=== PATIENT | female | born 1955 | race Caucasian/White ===

== ENCOUNTER → 2016-08-01 | Outpatient (CLI) | payer BC ==
--- NOTE | 2016-08-02 07:14 | MM ---
Reason for exam: history of breast cancer, conservation therapy. Last mammogram was performed 10 months ago. History: Patient is postmenopausal and has history of breast cancer at age 60. Family history of breast cancer in paternal aunt and breast cancer in paternal grandmother at age 80. Malignant MG pre op needle loc LT of the left breast, November 23, 2015. Malignant MG stereo VAD BX LT of the left breast, November 01, 2015. Benign excisional biopsy of the right breast, 1997. Physical Findings: Nurse did not find any significant physical abnormalities on exam. MG Diagnostic Mammo LT w CAD CC and MLO view(s) were taken of the left breast. Prior study comparison: October 13, 2015, left breast MG 3d work up w/cad LT. October 07, 2015, bilateral MG screening mammo w CAD. Post operative lumpectomy and radiation therapy changes in the left breast. Dystrophic calcifications. No significant new findings when compared with previous films. These results were verbally communicated with the patient and result sheet given to the patient on 08/01/16. ASSESSMENT: Benign, BI-RAD 2 RECOMMENDATION: Follow-up diagnostic mammogram of both breasts in 3 months. Back on schedule for September 2016.
== END | disposition home or self-care (01) ==
LOC: RADMAMWWP 14:45
PROVIDERS: ATTEND Radiology Radiation Oncology
DX: D05.12 Intraductal carcinoma in situ of left breast (principal)

== ENCOUNTER → 2016-10-09 | Outpatient (CLI) | payer BC ==
--- NOTE | 2016-10-09 14:30 | MM ---
Reason for exam: follow-up at short interval from prior study. Last mammogram was performed 2 months ago. History: Patient is postmenopausal and has history of breast cancer at age 60. Family history of breast cancer in paternal aunt and breast cancer in paternal grandmother at age 80. Malignant MG pre op needle loc LT of the left breast, November 23, 2015. Malignant MG stereo VAD BX LT of the left breast, November 01, 2015. Benign excisional biopsy of the right breast, 1997. Physical Findings: Nurse did not find any significant physical abnormalities on exam. MG 3D Diag Mammo W/Cad EDDIE Bilateral CC and MLO view(s) were taken. Prior study comparison: August 01, 2016, left breast MG diagnostic mammo LT w CAD. October 13, 2015, left breast MG 3d work up w/cad LT. The breast tissue is heterogeneously dense. This may lower the sensitivity of mammography. Finding: Architectural distortion in the left breast consistent with previous biopsy. There are post surgical changes bilaterally. No significant changes in finding since August 01, 2016 and October 13, 2015. These results were verbally communicated with the patient and result sheet given to the patient on 10/09/16. ASSESSMENT: Benign, BI-RAD 2 RECOMMENDATION: Follow-up diagnostic mammogram of both breasts in 1 year.
== END | disposition home or self-care (01) ==
LOC: RADMAMWWP 13:25
PROVIDERS: ATTEND Surgery
DX: Z85.3 Personal history of malignant neoplasm of breast (principal)
CPT/HCPCS: G0204; G0279

== ENCOUNTER → 2017-03-22 | Outpatient (CLI) | payer BC ==
--- NOTE | 2017-03-22 16:56 | US ---
EXAMINATION TYPE: US venous doppler duplex LE RT DATE OF EXAM: 03/22/2017 4:46 PM COMPARISON: Bilateral lower extremity venous ultrasound November 03, 2014. CLINICAL HISTORY: M79.661 Pain in right lower leg. Elevated DDimer, patient states discomfort behind right knee. No hx of DVT or on blood thinners SIDE PERFORMED: Right TECHNIQUE: The lower extremity deep venous system is examined utilizing real time linear array sonog ashlee with graded compression, doppler sonography and color-flow sonography. VESSELS IMAGED: External Iliac Vein (EIV) Common Femoral Vein Deep Femoral Vein Greater Saphenous Vein * Femoral Vein Popliteal Vein Small Saphenous Vein * Proximal Calf Veins (* superficial vessels) Right Leg: Appears negative for DVT Grayscale, color doppler, spectral doppler imaging performed of the deep veins of the right lower ext remity. There is normal flow, compressibility, vascular waveforms. IMPRESSION: No acute DVT in the right lower extremity identified.
== END | disposition home or self-care (01) ==
LOC: RADUSMAIN 16:20
PROVIDERS: ATTEND Nurse Practitioner
DX: M79.661 Pain in right lower leg (principal); R79.89 Other specified abnormal findings of blood chemistry; Z88.8 Allergy status to other drugs, medicaments and biological substances

== ENCOUNTER → 2017-06-13 | Outpatient (CLI) | payer BC ==
--- NOTE | 2017-06-13 07:31 | US ---
EXAMINATION TYPE: US abdomen complete DATE OF EXAM: 06/13/2017 COMPARISON: CTA Chest November 02, 2014 CLINICAL HISTORY: LUQ Abd Pain R10.12. Pt states LUQ pain EXAM MEASUREMENTS: Liver Length: 14.3 cm Gallbladder Wall: Surgically absent CBD: 0.9 cm Spleen: 10.1 cm Right Kidney: 10.0 x 4.9 x 5.1 cm Left Kidney: 11.0 x 5.4 x 5.3 cm Pancreas: wnl, tail obscured by overlying bowel gas Liver: Heterogeneous, otherwise appeared wnl Gallbladder: Surgically absent Evidence for sonographic Levine's sign: No CBD: wnl Spleen: wnl Right Kidney: wnl Left Kidney: wnl Upper IVC: wnl Abd Aorta: wnl, part of mid and distal gassed out The visualized liver is heterogeneously hyperechoic. The intrahepatic portion of the IVC and visuali zed portion of abdominal aorta are within normal limits. Gallbladder is surgically absent. Common bi le duct is within normal limits after cholecystectomy. The visualized portions of the pancreas are h omogenous. The spleen is unremarkable. Kidneys are symmetric and free of hydronephrosis. No renal lesions are seen. IMPRESSION: No suspicious finding is seen to account for patient's symptoms.
== END | disposition home or self-care (01) ==
LOC: RADUSWWP 06:42
PROVIDERS: ATTEND Family Medicine
DX: Z88.8 Allergy status to other drugs, medicaments and biological substances (principal)
CPT/HCPCS: 76700

== ENCOUNTER → 2017-10-18 | Outpatient (CLI) | payer BC ==
--- NOTE | 2017-10-19 09:21 | MM ---
Reason for exam: additional evaluation requested from prior study. Last mammogram was performed 1 year ago. History: Patient is postmenopausal and has history of breast cancer at age 60. Family history of breast cancer in paternal aunt and breast cancer in paternal grandmother at age 80. Malignant MG pre op needle loc LT of the left breast, November 23, 2015. Malignant MG stereo VAD BX LT of the left breast, November 01, 2015. Benign excisional biopsy of the right breast, 1997. Physical Findings: Nurse did not find any significant physical abnormalities on exam. MG Diagnostic Mammo w CAD EDDIE Bilateral CC and MLO view(s) were taken. ML, CC with magnification, and ML with magnification view(s) were taken of the right breast. Prior study comparison: October 09, 2016, bilateral MG 3d diag mammo w/cad EDDIE. August 01, 2016, left breast MG diagnostic mammo LT w CAD. The breast tissue is heterogeneously dense. This may lower the sensitivity of mammography. Post surgical and post therapy changes in the left breast. New grouped calcifications lower outer quadrant anterior right breast 8 o'clock in a linear distribution not clearly vascular, biopsy is recommended. Nodular asymmetry superior right breast middle depth does not persist on lateral view. These results were verbally communicated with the patient and result sheet given to the patient on 10/18/17. ASSESSMENT: Suspicious, BI-RAD 4 RECOMMENDATION: Surgical consultation and stereotactic core biopsy of the right breast. Called with mammographic findings and has scheduled an appointment for the patient for 11/01/17 at 8:[address] Hurd. PRELIMINARY REPORT CALLED AND FAXED TO DR. HURD ON 10/19/17.
== END | disposition home or self-care (01) ==
LOC: RADMAMWWP 12:50
PROVIDERS: ATTEND Surgery
DX: Z09 Encounter for follow-up examination after completed treatment for conditions other than malignant neoplasm (principal); Z85.3 Personal history of malignant neoplasm of breast
CPT/HCPCS: 77066

== ENCOUNTER 2017-11-06 06:48 | Emergency (ER) | payer BC ==
[2017-11-06 06:53] VITALS: TEMP 98.5
[2017-11-06 07:15] LABS: Basophils # (A) 0.1 k/uL (0-0.2); Basophils % (A) 1 %; Eosinophils # (A) 0.2 k/uL (0-0.7); Eosinophils % (A) 4 %; HCT 46.5 % (34.0-46.0); HGB 15.2 gm/dL (11.4-16.0); Lymphocytes # (A) 1.4 k/uL (1.0-4.8); Lymphocytes % (A) 24 %; MCH 30.5 pg (25.0-35.0); MCHC 32.6 g/dL (31.0-37.0); MCV 93.4 fL (80.0-100.0); Mean Platelet Volume 6.5; Monocytes # (A) 0.3 k/uL (0-1.0); Monocytes % (A) 5 %; Neutrophils # (A) 3.8 k/uL (1.3-7.7); Neutrophils % (A) 65 %; Platelet Count 355 k/uL (150-450); RBC 4.98 m/uL (3.80-5.40); RDW 12.6 % (11.5-15.5); WBC 5.9 k/uL (3.8-10.6)
[2017-11-06 07:24] LABS: ALT 25 U/L (9-52); AST 18 U/L (14-36); Albumin 4.4 g/dL (3.5-5.0); Alkaline Phosphatase 74 U/L (38-126); Anion Gap 13 mmol/L; Blood Urea Nitrogen 16 mg/dL (7-17); Calcium 9.6 mg/dL (8.4-10.2); Carbon Dioxide 28 mmol/L (22-30); Chloride 101 mmol/L (98-107); Glucose 100 mg/dL (74-99); Potassium 4.1 mmol/L (3.5-5.1); Sodium 142 mmol/L (137-145); Total Bilirubin 0.5 mg/dL (0.2-1.3); Total Protein 7.3 g/dL (6.3-8.2)
[2017-11-06 07:29] LABS: Partial Thromboplastin Time 24.5 sec (22.0-30.0); Prothrombin Time 9.9 sec (9.0-12.0)
[2017-11-06 07:43] LABS: Creatine Kinase 73 U/L (30-135)
--- NOTE | 2017-11-06 07:49 | XR ---
EXAMINATION TYPE: XR chest 2V DATE OF EXAM: 11/06/2017 COMPARISON: Chest x-ray February 11, 2015. HISTORY: History of hypertension with dysrhythmia. TECHNIQUE: Frontal and lateral views of the chest are obtained. FINDINGS: There is chronic parenchymal change without suspicious new focal air space opacity, pleura l effusion, or pneumothorax seen. The cardiac silhouette size remains within normal limits. The os seous structures are intact. Right axillary surgical clips are redemonstrated. Cholecystectomy clips are again seen. IMPRESSION: Chronic changes without acute pulmonary process. No significant change from prior.
[2017-11-06 07:56] LABS: Creatine Kinase MB 0.7 ng/mL (0.0-2.4); Troponin I <0.012 ng/mL (0.000-0.034)
[2017-11-06] MEDS ORDERED: RX INFO: IV CONTRAST WAS GIVEN 1 EACH MISC MISCELLANE PRN (08:02)
--- NOTE | 2017-11-06 08:36 | ED ---
General Adult HPI - General Chief complaint: Arrhythmia/Palpitations Stated complaint: high heart rate Time Seen by Provider: 11/06/17 07:16 Source: patient, RN notes reviewed, old records reviewed Mode of arrival: wheelchair Limitations: no limitations - History of Present Illness Initial comments: This is a 62-year-old female the ER for evaluation. This patient presents today for evaluation regards to arrhythmia, elevated blood pressure, elevated pulse. Anxious. Patient admits to anxiety and stress. Patient has history of high cholesterol remote history of smoking. Stress test 5 years ago with no significant heart disease. No travel history no sick contacts no pain in her legs. She occasionally gets pain down her right leg from her right back which she has sever from sciatica. Symptoms started this morning. Blood pressure was initially elevated at Dr. visit recently - Related Data Home Medications Medication Instructions Recorded Confirmed Albuterol Sulfate [Ventolin HFA] 1 - 2 puff INHALATION RT-Q4H PRN 11/02/1411/06 Loratadine [Claritin] 10 mg PO DAILY PRN 11/02/14 11/06/17 Omeprazole [PriLOSEC] 20 mg PO DAILY PRN 11/02/14 11/06/17 Fluticasone/Salmeterol [Advair 1 puff INHALATION RT-BID 11/19/15 11/06/17 100-50 Diskus] Allergies Allergy/AdvReac Type Severity Reaction Status Date / Time latex Allergy Rash/Hives Verified 11/06/17 07:16 Penicillins Allergy Rash/Hives Verified 11/06/17 07:16 prednisone AdvReac Dyspnea Verified 11/06/17 07:16 Review of Systems ROS Statement: Those systems with pertinent positive or pertinent negative responses have been documented in the HPI. ROS Other: All systems not noted in ROS Statement are negative. Past Medical History Past Medical History: Asthma, Cancer, GERD/Reflux, Hyperlipidemia, Hypertension , Osteoarthritis (OA) Additional Past Medical History / Comment(s): HX BACK PROB, RT SCIATICA. NO HTN RX IN FEW YEARS. HX PVC'S 01/2015. LT BREAST DUCTAL CARCINOMA INSITU CURRENTLY., History of Any Multi-Drug Resistant Organisms: None Reported Past Surgical History: Breast Surgery, Cholecystectomy, Orthopedic Surgery Additional Past Surgical History / Comment(s): Fatty Tumor EXC RT AXILLA. BUNION. COLONOSCOPY. LT BREAST BX., Past Anesthesia/Blood Transfusion Reactions: No Reported Reaction Additional Past Anesthesia/Blood Transfusion Reaction / Comment(s): AFTER LT BREAST BX 11/01/15, DEVELOPED HIVES ON BREAST. Past Psychological History: Depression Smoking Status: Former smoker Past Alcohol Use History: Occasional Past Drug Use History: None Reported - Past Family History Mother Family Medical History: Cancer, Hypertension Additional Family Medical History / Comment(s): COLON CA. General Exam Limitations: no limitations General appearance: alert, in no apparent distress Head exam: Present: atraumatic, normocephalic, normal inspection Eye exam: Present: normal appearance, PERRL, EOMI. Absent: scleral icterus, conjunctival injection, periorbital swelling ENT exam: Present: normal exam, mucous membranes moist Neck exam: Present: normal inspection. Absent: tenderness, meningismus, lymphadenopathy Respiratory exam: Present: normal lung sounds bilaterally. Absent: respiratory distress, wheezes, rales, rhonchi, stridor Cardiovascular Exam: Present: regular rate, normal rhythm, normal heart sounds. Absent: systolic murmur, diastolic murmur, rubs, gallop, clicks GI/Abdominal exam: Present: soft, normal bowel sounds. Absent: distended, tenderness, guarding, rebound, rigid Extremities exam: Present: normal inspection, full ROM, normal capillary refill. Absent: tenderness, pedal edema, joint swelling, calf tenderness Back exam: Present: normal inspection Neurological exam: Present: alert, oriented X3, CN II-XII intact Psychiatric exam: Present: normal affect, normal mood Skin exam: Present: warm, dry, intact, normal color. Absent: rash Course Vital Signs 11/06/17 11/06/17 06:50 08:35 Temperature 98.5 F Pulse Rate 98 80 Respiratory 18 16 Rate Blood Pressure 157/81 140/81 O2 Sat by Pulse 99 100 Oximetry - Reevaluation(s) Reevaluation #1: 11/06/17 08:35 Patient with episodic symptoms here in the ER, nothing consistent Reevaluation #2: 11/06/17 10:01 A she remains without significant symptoms. No shortness of breath currently. Blood pressures markedly improved EKG Findings - EKG Comments: EKG Findings:: EKG shows normal sinus rhythm at 96, AR 138, QRS 90, QTC 416 Medical Decision Making - Medical Decision Making 62 female the ER with nonspecific palpitations chest pain. Patient has no significant similar history, blood pressures episodic, will follow-up with family doctor regarding blood pressure management. CT negative troponin negative 2 EKG is normal and patient can be discharged home - Lab Data Result diagrams: 11/06/17 07:00 11/06/17 07:00 Lab Results 11/06/17 11/06/17 11/06/17 Range/Units 07:00 07:00 07:00 WBC 5.9 (3.8-10.6) k/uL RBC 4.98 (3.80-5.40) m/uL Hgb 15.2 (11.4-16.0) gm/dL Hct 46.5 H (34.0-46.0) % MCV 93.4 (80.0-100.0) fL MCH 30.5 (25.0-35.0) pg MCHC 32.6 (31.0-37.0) g/dL RDW 12.6 (11.5-15.5) % Plt Count 355 (150-450) k/uL Neutrophils % 65 % Lymphocytes % 24 % Monocytes % 5 % Eosinophils % 4 % Basophils % 1 % Neutrophils # 3.8 (1.3-7.7) k/uL Lymphocytes # 1.4 (1.0-4.8) k/uL Monocytes # 0.3 (0-1.0) k/uL Eosinophils # 0.2 (0-0.7) k/uL Basophils # 0.1 (0-0.2) k/uL PT (9.0-12.0) sec INR (<1.2) APTT (22.0-30.0) sec Sodium 142 (137-145) mmol/L Potassium 4.1 (3.5-5.1) mmol/L Chloride 101 (98-107) mmol/L Carbon Dioxide 28 (22-30) mmol/L Anion Gap 13 mmol/L BUN 16 (7-17) mg/dL Creatinine 0.68 (0.52-1.04) mg/dL Est GFR (CKD-EPI)AfAm >90 (>60 ml/min/1.73 sqM) Est GFR (CKD-EPI)NonAf >90 (>60 ml/min/1.73 sqM) Glucose 100 H (74-99) mg/dL Calcium 9.6 (8.4-10.2) mg/dL Magnesium 2.0 (1.6-2.3) mg/dL Total Bilirubin 0.5 (0.2-1.3) mg/dL AST 18 (14-36) U/L ALT 25 (9-52) U/L Alkaline Phosphatase 74 (38-126) U/L Total Creatine Kinase 73 (30-135) U/L CK-MB (CK-2) 0.7 (0.0-2.4) ng/mL CK-MB (CK-2) Rel Index 1.0 Troponin I <0.012 (0.000-0.034) ng/mL Total Protein 7.3 (6.3-8.2) g/dL Albumin 4.4 (3.5-5.0) g/dL 11/06/17 Range/Units 07:00 WBC (3.8-10.6) k/uL RBC (3.80-5.40) m/uL Hgb (11.4-16.0) gm/dL Hct (34.0-46.0) % MCV (80.0-100.0) fL MCH (25.0-35.0) pg MCHC (31.0-37.0) g/dL RDW (11.5-15.5) % Plt Count (150-450) k/uL Neutrophils % % Lymphocytes % % Monocytes % % Eosinophils % % Basophils % % Neutrophils # (1.3-7.7) k/uL Lymphocytes # (1.0-4.8) k/uL Monocytes # (0-1.0) k/uL Eosinophils # (0-0.7) k/uL Basophils # (0-0.2) k/uL PT 9.9 (9.0-12.0) sec INR 1.0 (<1.2) APTT 24.5 (22.0-30.0) sec Sodium (137-145) mmol/L Potassium (3.5-5.1) mmol/L Chloride (98-107) mmol/L Carbon Dioxide (22-30) mmol/L Anion Gap mmol/L BUN (7-17) mg/dL Creatinine (0.52-1.04) mg/dL Est GFR (CKD-EPI)AfAm (>60 ml/min/1.73 sqM) Est GFR (CKD-EPI)NonAf (>60 ml/min/1.73 sqM) Glucose (74-99) mg/dL Calcium (8.4-10.2) mg/dL Magnesium (1.6-2.3) mg/dL Total Bilirubin (0.2-1.3) mg/dL AST (14-36) U/L ALT (9-52) U/L Alkaline Phosphatase (38-126) U/L Total Creatine Kinase (30-135) U/L CK-MB (CK-2) (0.0-2.4) ng/mL CK-MB (CK-2) Rel Index Troponin I (0.000-0.034) ng/mL Total Protein (6.3-8.2) g/dL Albumin (3.5-5.0) g/dL - Radiology Data Radiology results: report reviewed (Chest x-ray negative CTA chest negative), image reviewed Disposition Clinical Impression: Tachycardia, Palpitations, PVC (premature ventricular contraction) Disposition: HOME SELF-CARE Condition: Good Instructions: Palpitations (ED) Is patient prescribed a controlled substance at d/c from ED?: No Referrals: Robinson Jarrell MD [Primary Care Provider] - 1-2 days
[2017-11-06 08:37] VITALS: RESP 16
--- NOTE | 2017-11-06 09:01 | CT ---
EXAMINATION TYPE: CT angio chest DATE OF EXAM: 11/06/2017 COMPARISON: CTA chest November 02, 2014. Rapid heart rate. HISTORY: High heart rate CT DLP: 372.6 mGycm. Automated Exposure Control for Dose Reduction was Utilized. CONTRAST: CTA scan of the thorax is performed with IV Contrast, patient injected with 100 mL of Isovue 370, pul monary embolism protocol. MIP Images are created on CT scanner and reviewed. FINDINGS: LUNGS: Dependent atelectasis in both lower lobes is present. There is additional linear scarring and/ or atelectasis in the bases near diaphragm. There is mild underlying emphysematous change. There is n o suspicious parenchymal nodule or mass identified bilaterally. No pleural effusion or pneumothorax i s seen. Tracheobronchial tree is patent. MEDIASTINUM: There is slightly suboptimal study with equal contrast noted in right and left heart sys tems there is no convincing CT evidence for pulmonary embolism. There are no greater than 1 cm hilar or mediastinal lymph nodes. No cardiomegaly or pericardial effusion is seen. There is 4 vessel katelynn gin from aortic arch which is normal variant. OTHER: Cholecystectomy clips are present. There is tiny splenule in splenic hilum. Exaggerated thorac ic kyphosis is seen. IMPRESSION: 1. Slightly suboptimal study without CT evidence for acute pulmonary embolism. 2. Bilateral lower lung atelectatic change and/or scarring on background of mild emphysematous change , no suspicious acute pulmonary process is evident.
[2017-11-06 11:30] VITALS: BP 138/72; PULSE 88
== END 2017-11-06 11:51 | disposition home or self-care (01) ==
LOC: EC 06:48
DX: I49.3 Ventricular premature depolarization (principal); F41.9 Anxiety disorder, unspecified; F43.9 Reaction to severe stress, unspecified; M54.9 Dorsalgia, unspecified; M79.604 Pain in right leg; J45.909 Unspecified asthma, uncomplicated; Z87.891 Personal history of nicotine dependence; Z79.51 Long term (current) use of inhaled steroids; Z88.0 Allergy status to penicillin; Z88.8 Allergy status to other drugs, medicaments and biological substances; Z91.040 Latex allergy status; Z82.49 Family history of ischemic heart disease and other diseases of the circulatory system
CPT/HCPCS: 99285; 36415; 93005; 80053; 82550; 82553; 83735; 84484; 85025; 85610; 85730; 71046; 71275; Q9967

== ENCOUNTER → 2017-11-09 | Day surgery (SDC) | payer BC ==
[2017-11-09 07:49] VITALS: RESP 16; BMI 28.8
--- NOTE | 2017-11-09 10:25 | MM ---
EXAMINATION TYPE: MG stereo VAD BX RT DATE OF EXAM: 11/09/2017 COMPARISON: Mammogram October 18, 2017 and older studies CLINICAL HISTORY: Abnormal mammogram TECHNIQUE: Stereotactic guided core biopsy of right breast with clip placement and follow-up two-view mammogram. FINDINGS: The procedure of stereotactic guided core biopsy was explained to the patient. Benefits, a lternatives, and risks were discussed. An informed consent was then obtained. The [facility] pathway for biopsy was chosen. [facility] pathway was outer approach. I performed the l ocalization, then surgeon, Dr. Hurd performed the remainder of the procedure. Attempts at local izing area of concern marked on images appear to correspond to a prominent vessel with a few adjacent calcifications. Review of images show several areas of concern in the right breast. A second spot wa s chosen to sample. A vacuum assisted biopsy gun was used to obtain multiple core samples. The patient tolerated the procedure well without any immediate complication. The patient was kept in the radiology department for short stay after the procedure and then discharged home in stable condi tion. Targeted calcifications are identified in specimen mammogram. Post biopsy mammogram shows the clip to appear in satisfactory position relative to the targeted area of concern on the preprocedure images. IMPRESSION: SUCCESSFUL, UNCOMPLICATED STEREOTACTIC GUIDED CORE BIOPSY OF AREA OF CONCERN IN THE RIGHT BREAST, FUL L PATHOLOGY RESULTS TO FOLLOW. Intermediate to high index of suspicion noted at time of procedure.
--- NOTE | 2017-11-09 11:28 | PCN ---
PROCEDURE NOTE The patient is a 62-year-old white female who presents status post left breast lumpectomy with a recent mammogram done 10/18/2017 showing grouped calcifications of concern in the anterior right breast at 8 o'clock. The mammograms were reviewed and the findings were a new area of grouped calcifications lower outer quadrant anterior right breast 8 o'clock. Biopsy was recommended. The patient's left breast revealed postoperative changes. The patient underwent a physical examination and on physical examination no supraclavicular, cervical, axillary adenopathy of concern. Postop changes in the left breast were noted. Changes in the right breast were fibrocystic with no dominant mass or nodules of concern. The procedure was discussed with the patient. Risks and benefits were discussed with the patient and the recommendation was a stereotactic core biopsy rather than an open procedure or observation. The patient was taken to the stereotactic unit. She laid on the table and the area of concern again was noted in the right breast at approximately the 8 o'clock position. A lateral to medial approach was utilized. The skin was prepped using Betadine and 1% lidocaine was used to anesthetize the area of the skin. A 5-gauge vacuum-assisted core biopsy was driven to the correct coordinates and pre-fire and post-fire films were obtained. When this was noted to be in the correct location, multiple core biopsies were obtained. Radiograph of the specimen revealed calcifications. A marker was inserted. Radiograph revealed marker was in the correct location. The patient is going to follow up with Dr. Hurd and the specimen is sent to pathology. The patient tolerated the procedure in stable condition. MMODL / IJN: [id number] /
[2017-11-09 11:35] VITALS: BP 129/85; PULSE 71; TEMP 98.1
== END | disposition home or self-care (01) ==
LOC: RADMAMWWP 07:03
PROVIDERS: ATTEND Surgery
DX: N60.11 Diffuse cystic mastopathy of right breast (principal); N60.81 Other benign mammary dysplasias of right breast; Z88.0 Allergy status to penicillin; Z88.8 Allergy status to other drugs, medicaments and biological substances; Z91.040 Latex allergy status; Z85.3 Personal history of malignant neoplasm of breast
CPT/HCPCS: 88305; 88342; 19081; A4648; J2001

== ENCOUNTER → 2017-11-23 | Outpatient (CLI) | payer BC ==
[2017-11-23 08:46] VITALS: BP 160/93; PULSE 96; TEMP 97.7; BMI 28.8
--- NOTE | 2017-11-23 09:11 | P.PN ---
Progress Note - Text Progress Note Date: 11/23/17 Kiesha is a 62-year-old white female status post left breast lumpectomy and Reanna procedure performed. The patient recently underwent a bilateral mammogram for which a stereotactic core biopsy was recommended on the right side. Stereotactic biopsy results revealed at least atypical apocrine ductal hyperplasia with microcalcifications the concern about ductal carcinoma in situ was entertained. The recommendation was for needle localization and excisional biopsy. family history: paternal aunt : breast cancer grandmother: breast cancer (paternal) maternal: two cousins late 40's breast cancer PE: The area of the biopsy is clean and dry with no evidence of any infection Lungs clear Heart: Heart regular rate and rhythm Abdomen soft nontender Impression/plan: 1. Atypical hyperplasia right breast are detected core biopsy recommend needle localization excisional biopsy 2. History of left-sided breast cancer no evidence of recurrence
--- NOTE | 2017-11-23 09:32 | P.GSHP ---
History of Present Illness H&P Date: 11/23/17 Chief Complaint: Left breast lumpectomy, right breast stereotactic biopsy atypical hyperplas This is. Is a 62-year-old white female status post left breast lumpectomy with Reanna radiation treatment. She recently underwent a stereo biopsy of the right breast for radiographic abnormality which revealed atypical hyperplasia possible DCIS. The patient at this time is doing well related to the stereo biopsy she has no complaints related to this. She does experience some tenderness in the left breast related to the prior lumpectomy and radiation treatment. Patient was taken an antiestrogen but only took it for approximately a week because she did not like the symptoms. menarche: 16 : 2, first at 26 did not breast feed BCP 1 year, hormones none family history: paternal grandmother: breast paternal aunt: breast in her 60's two cousins maternal: breast cancer in 40's mother :colon past surgical history: 1. bunion 2. lipoma 3. gallbladder 4. colonoscopy 5. breast left lumpectomy past medical history: 1. HTN 2. asthma social: 1. former stopped, 5 years ago 2. alcohol: 1-2 beers/week 3. drugs: none - Constitutional Comment: hotflashes Constitutional: Denies chills, Denies fever - Cardiovascular Cardiovascular: Denies chest pain, Denies shortness of breath - Respiratory Comment: asthma - Gastrointestinal Gastrointestinal: Denies abdominal pain, Denies diarrhea, Denies nausea, Denies vomiting - Genitourinary (Female) Comment: left flank pain, follows with primary care - Musculoskeletal Comment: arthritis - Integumentary Comment: no skin cancers - Neurological Neurological: Denies numbness, Denies weakness - Psychiatric Psychiatric: Denies anxiety, Denies depression - Endocrine Endocrine: Denies fatigue, Denies weight change - Hematologic/Lymphatic Comment: no bleeding abnormalitits - Allergic/Immunologic Allergic/Immunologic: Reports seasonal allergies Past Medical History Past Medical History: Asthma, Cancer, GERD/Reflux, Hyperlipidemia, Hypertension , Osteoarthritis (OA) Additional Past Medical History / Comment(s): HX BACK PROB, RT SCIATICA. NO HTN RX IN FEW YEARS. HX PVC'S 01/2015. LT BREAST DUCTAL CARCINOMA INSITU 2015. History of Any Multi-Drug Resistant Organisms: None Reported Past Surgical History: Breast Surgery, Orthopedic Surgery Additional Past Surgical History / Comment(s): Fatty Tumor EXC RT AXILLA. BUNION. Left breast lumpectomy 2016 Past Anesthesia/Blood Transfusion Reactions: No Reported Reaction Additional Past Anesthesia/Blood Transfusion Reaction / Comment(s): AFTER LT BREAST BX 11/01/15, DEVELOPED HIVES ON BREAST. Past Psychological History: Anxiety, Depression Additional Psychological History / Comment(s): HX OF CHILD IN PAST. Smoking Status: Former smoker Past Alcohol Use History: Occasional Additional Past Alcohol Use History / Comment(s): SMOKED 17 YEARS, ON/OFF FOR FEW YEARS, LAST 2014. Past Drug Use History: None Reported - Past Family History Mother Family Medical History: Cancer, Hypertension Additional Family Medical History / Comment(s): COLON CA. Medications and Allergies Home Medications Medication Instructions Recorded Confirmed Type Albuterol Sulfate [Ventolin HFA] 1 - 2 puff INHALATION RT-Q4H PRN 11/02/1411/09 History Loratadine [Claritin] 10 mg PO DAILY PRN 11/02/14 11/09/17 History Omeprazole [PriLOSEC] 20 mg PO DAILY PRN 11/02/14 11/09/17 History Fluticasone/Salmeterol [Advair 1 puff INHALATION RT-BID 11/19/15 11/09/17 History 100-50 Diskus] Allergies Allergy/AdvReac Type Severity Reaction Status Date / Time latex Allergy Rash/Hives Verified 11/09/17 07:16 Penicillins Allergy Rash/Hives Verified 11/09/17 07:16 prednisone AdvReac Dyspnea Verified 11/09/17 07:16 Surgical - Exam Vital Signs Temp Pulse BP 97.7 F 96 160/93 11/23/17 08:43 11/23/17 08:43 11/23/17 08:43 - General well developed, well nourished, no distress - Eyes normal ocular movement - ENT normal pinna, normal nares, no hearing loss - Neck no masses, trachea midline, no lymphadectomy - Respiratory normal respiratory effort, clear to auscultation - Cardiovascular Rhythm: regular Heart Sounds: normal: S1, S2 - Abdomen Abdomen: soft, tender - Integumentary moles to follow with dermatology - Musculoskeletal normal gait, normal posture - Psychiatric oriented to time, oriented to person, speech is normal Assessment and Plan Assessment: Imp: 1. abnormal stero-biopsy 2. history of breast DCIS 3. HTN 4. Abnormal moles Plan: 1. needle localization and open biopsy of right breast, have discussed risk and benefits and patient agrees 2. patient to follow up with dermatology cc DR. Richardson
== END | disposition home or self-care (01) ==
LOC: WWCWWP 08:35
PROVIDERS: ATTEND Surgery
DX: N60.92 Unspecified benign mammary dysplasia of left breast (principal); Z53.9 Procedure and treatment not carried out, unspecified reason

== ENCOUNTER 2017-11-27 06:15 | Day surgery (SDC) | payer BC ==
[2017-11-26 11:45] VITALS: BMI 28.8
[~2017-11-27 06:15] MED LIST: Pre Op ABX Message 1 EACH MISC MISCELLANE ONE
[2017-11-27] MEDS ORDERED: LIDOCAINE 1% 20 ML VIAL (10MG/ML) FOR IV START INTRADERMA ONE (06:51)
[2017-11-27] MEDS ORDERED: LACTATED RINGERS 1,000 ML IV ONE (06:52)
[2017-11-27] MEDS ORDERED: ALPRAZolam 0.5 MG TAB PO ONE (07:12)
[2017-11-27] MEDS ORDERED: SODIUM BICARB 4% 5 ML VIAL (0.48 MEQ/ML) MISCELLANE ONE (07:57)
[2017-11-27] MEDS ORDERED: LIDOCAINE 1% INJ 10MG/ML (20 ML MDV) SQ ONE (07:57)
[2017-11-27] MEDS ORDERED: MIDAZOLAM 2 MG/2 ML VIAL ONE (08:59)
[2017-11-27] MEDS ORDERED: ePHEDrine SULFATE/0.9% NACL/PF 50 MG/5 ML SYRINGE IV ONE (08:59)
[2017-11-27] MEDS ORDERED: PROPOFOL 10 MG/ML 20 ML VIAL IV ONE (08:59)
[2017-11-27] MEDS ORDERED: SUCCINYLCHOLINE CHLORIDE 100 MG/5 ML SYR IV ONE (08:59)
[2017-11-27] MEDS ORDERED: ONDANSETRON 4 MG/2 ML VIAL ONE (08:59)
[2017-11-27] MEDS ORDERED: fentaNYL (PF) 50 MCG/ML 2 ML AMP ONE (08:59)
[2017-11-27] MEDS ORDERED: LIDOCAINE 1% INJ 10MG/ML (20 ML MDV) ONE (08:59)
[2017-11-27] MEDS ORDERED: HEPARIN SODIUM,PORCINE 5,000 UNIT/ML 1 ML VIAL SQ ONE (09:24)
[2017-11-27] MEDS ORDERED: LIDOCAINE 1% (PF) 10MG/ML VIAL SQ ONE ×2 (09:36→10:07)
--- NOTE | 2017-11-27 10:12 | P.OP ---
Date of Procedure: 11/27/17 Preoperative Diagnosis: Atypical hyperplasia versus ductal carcinoma in situ on core biopsy Postoperative Diagnosis: Same Procedure(s) Performed: needle Localization excisional biopsy right breast Anesthesia: MARYCARMENA Surgeon: Melissa Hurd Estimated Blood Loss (ml): 10 IV fluids (ml): 900 Pathology: other (breast tissue) Condition: stable Disposition: PACU Indications for Procedure: Biopsy with atypical hyperplasia versus ductal carcinoma in situ Operative Findings: Fibrocystic breast changes Description of Procedure: Patient was taken to the operating room and following induction of general anesthesia the right breast was prepped and draped in a sterile fashion. 2 areas of concern had been bracketed by needle localization, and an incision was made and carried down to the hook of these needles. Surrounding tissue was excised. After we were assured that hemostasis was obtained the wound was well irrigated. The specimen was painted for orientation. The specimen was then sent for radiographic confirmation the area of concern had been removed. This was obtained. Titanium clips were placed. The deep tissues were closed using 3 -0 Vicryl suture. The skin was closed using 4-0 Monocryl. All instrument and sponge counts were correct at the end of the case. The patient tolerated the procedure in stable condition.
--- NOTE | 2017-11-27 10:14 | P.DS ---
Providers Attending physician: Melissa Hurd Primary care physician: Robinson Jarrell Plan - Discharge Summary New Discharge Prescriptions: No Action Albuterol Sulfate [Ventolin HFA] 1 - 2 puff INHALATION RT-Q4H PRN PRN Reason: Shortness Of Breath Loratadine [Claritin] 10 mg PO DAILY PRN PRN Reason: Allergy Symptoms Omeprazole [PriLOSEC] 20 mg PO DAILY PRN PRN Reason: GERD Fluticasone/Salmeterol [Advair 100-50 Diskus] 1 puff INHALATION RT-BID Acetaminophen [Tylenol Extra Strength] 1,000 mg PO DAILY PRN PRN Reason: Pain Scale 4 To 5 Discharge Medication List Albuterol Sulfate [Ventolin HFA] 1 - 2 puff INHALATION RT-Q4H PRN 11/02/14 [ History] Loratadine [Claritin] 10 mg PO DAILY PRN 11/02/14 [History] Omeprazole [PriLOSEC] 20 mg PO DAILY PRN 11/02/14 [History] Fluticasone/Salmeterol [Advair 100-50 Diskus] 1 puff INHALATION RT-BID 11/19/15 [History] Acetaminophen [Tylenol Extra Strength] 1,000 mg PO DAILY PRN 11/27/17 [History] Follow up Appointment(s)/Referral(s): Melissa Hurd MD [STAFF PHYSICIAN] - 1 Week Activity/Diet/Wound Care/Special Instructions: Do not drive today Patient may shower after 48 hours wear Bra at all times Discharge Disposition: HOME SELF-CARE
[2017-11-27 10:28] VITALS: TEMP 97
[2017-11-27 10:36] VITALS: RESP 16
[2017-11-27 11:31] VITALS: BP 128/69; PULSE 69
--- NOTE | 2017-11-29 09:00 | MM ---
EXAMINATION TYPE: MG pre op needle loc RT, MG surgical specimen RT DATE OF EXAM: 11/27/2017 COMPARISON: Exams dating back to 10/02/1716 CLINICAL HISTORY: Suspicious right breast calcifications, previously discordant , for which surgical excision was recommended. The patient is noted to have multiple groups of right breast calcifications. TECHNIQUE: Needle localization with wire placement and surgical excision of area of concern in the right breast. FINDINGS: The procedure of needle localization with wire placement and than surgical excision was explained to the patient. Benefits, alternatives, and risks were discussed. An informed consent was then obtained. Preprocedural timeout was performed. The shortest pathway for procedure was chosen. Shortest pathway was lateral medial approach. The overlying skin was prepped and draped in usual sterile fashion. Lidocaine buffered with bicarbonate was used as anesthetic into the skin and subcutaneous tissue up to the level of area of concern. Two 5 cm needles were used. Site A was located in a posterior lateral position and site B in and inferior medial position. They were placed via a lateral to medial approach under mammographic guidance. Subsequent 90 degrees mammogram show the needle to be in satisfactory position relative to the targeted area. At this point, wire was placed and the needle was withdrawn. The wire was fixed to patient's skin. Images were marked for surgeon. The patient tolerated the procedure well without any immediate complication. The patient was kept in the radiology department for short stay after the procedure and then taken to surgery for surgical excision. Targeted calcifications and wire are identified in specimen mammogram. The patient was kept in hospital for short stay after the procedure and then discharged home in stable condition. IMPRESSION: Successful, uncomplicated needle localization with wire placement and surgical excision of suspicious group of calcifications in the right breast with site A posterior lateral and site B inferior medial, full pathology results to follow. Pathology Results: Malignant BREAST, RIGHT, NEEDLE LOCALIZATION EXCISION: HIGH GRADE DUCTAL CARCINOMA IN SITU (DCIS), CLOSELY APPROXIMATING THE PURPLE INKED/POSTERIOR MARGIN (MUCH LESS THAN 1 MM FROM THE MARGIN). FOCAL ATYPICAL APOCRINE HYPERPLASIA AND FLAT EPITHELIAL ATYPIA. SEE SURGICAL PATHOLOGY CANCER CASE SUMMARY AND COMMENT. Recommendation Surgical consult of the right breast. ELKIN
== END 2017-11-27 12:24 | disposition home or self-care (01) ==
LOC: OR 06:15
PROVIDERS: ATTEND Surgery
DX: C50.911 Malignant neoplasm of unspecified site of right female breast (principal); N60.11 Diffuse cystic mastopathy of right breast; N62 Hypertrophy of breast; Z85.3 Personal history of malignant neoplasm of breast; Z92.3 Personal history of irradiation; I10 Essential (primary) hypertension; J45.909 Unspecified asthma, uncomplicated; Z87.891 Personal history of nicotine dependence; E78.5 Hyperlipidemia, unspecified; M19.90 Unspecified osteoarthritis, unspecified site; Z80.3 Family history of malignant neoplasm of breast; Z80.0 Family history of malignant neoplasm of digestive organs; Z79.51 Long term (current) use of inhaled steroids; Z88.0 Allergy status to penicillin; Z88.8 Allergy status to other drugs, medicaments and biological substances; Z91.040 Latex allergy status
CPT/HCPCS: 19125; 19281; 88307; 76098; J2250; J2405; J2001 ×2; J3010; J0330; J2704; 19282

== ENCOUNTER → 2017-12-06 | Outpatient (CLI) | payer BC ==
[2017-12-06 11:44] VITALS: BP 130/75; PULSE 88; RESP 18; TEMP 97; BMI 30.4
--- NOTE | 2017-12-06 12:28 | P.PN ---
Progress Note - Text Progress Note Date: 12/06/17 Abdomen there is a 62-year-old white female status post right breast biopsy. Pathology revealed high-grade ductal carcinoma in situ closely approximating the posterior margin. This was less than 1 mm from the margin. Additionally there was concern that she on her radiograph of the right breast had microcalcifications which were also somewhat worrisome. The patient at this time does not wish further intervention to be performed. She did have a left breast lumpectomy and Reanna radiation treatment approximately two years ago. We have discussed treatment options including mastectomy with reconstruction which she is not interested in at this time, and reexcision of the area of concern in the right breast with radiation treatment. Again at this time the patient is going on vacation with her case will be presented at tumor board and she will come back in approximately 6 weeks for further discussion. cc: Dr. Richardson
== END ==
LOC: WWCWWP 11:28
PROVIDERS: ATTEND Surgery
DX: C50.911 Malignant neoplasm of unspecified site of right female breast (principal); Z53.9 Procedure and treatment not carried out, unspecified reason

== ENCOUNTER → 2018-01-18 | Outpatient (CLI) | payer BC ==
[2018-01-18 10:10] VITALS: BP 146/96; PULSE 92; BMI 28.8
--- NOTE | 2018-01-18 11:16 | P.GSHP ---
History of Present Illness H&P Date: 01/18/18 Patient is a 62 year old white female status post left breast lumpectomy and REANNA treatment for DCIS about two years ago. She had no hormonal or chemotherapy. The antiestrgen exacerbated her hot flashes. She than had mammogram showing an area of concern in the right breast, and pathology showed DCIS with close margin. There was concern this may represent multifocal disease. She chose to go on vacation and is now back to discuss care. We have reviewed mammogram and we will recommend an MRI. family history: 1. paternal aunt: breast cancer 2. paternal grandmother: breast cancer 3. maternal cousin: breast cancer 40's 4. maternal cousin: breast cancer 40's past surgical history: 1. gallbladder 2. lipoma under irght arm 3. left bunyon 4. left lumpectomy 5. riht breast biopsy past medical history: 1. GERD menarche; 16 : 2, live at 26, breast fed: no menopause: 54 social history: smoke: former stopped 2009 alcohol: weekly drugs: none - Constitutional Comment: hot flashes Constitutional: Denies chills, Denies fever - EENT Eyes: denies blurred vision, denies loss of vision Ears: bilateral: decreased hearing, deny: tinnitus Ears, nose, mouth and throat: Denies headache, Denies sore throat - Breasts Breasts: bilateral: as per HPI - Cardiovascular Cardiovascular: Denies chest pain, Denies shortness of breath - Respiratory Comment: asthma environmental Respiratory: Denies cough, Denies 7 - Gastrointestinal Gastrointestinal: Denies abdominal pain, Denies diarrhea, Denies nausea, Denies vomiting - Genitourinary (Female) Genitourinary: Denies dysuria, Denies hematuria - Musculoskeletal Comment: arthritis - Integumentary Integumentary: Denies pruritus, Denies rash - Neurological Comment: sciatic nerve pain Neurological: Denies numbness, Denies weakness - Psychiatric Psychiatric: Denies anxiety, Denies depression - Endocrine Endocrine: Denies fatigue, Denies weight change - Hematologic/Lymphatic Comment: none - Allergic/Immunologic Allergic/Immunologic: Reports seasonal allergies Past Medical History Past Medical History: Asthma, Cancer, GERD/Reflux, Hyperlipidemia, Osteoarthritis (OA) Additional Past Medical History / Comment(s): HX BACK PROB, RT SCIATICA. . HX PVC'S 01/2015. LT BREAST DUCTAL CARCINOMA INSITU 2016., POSS CANCER TO RT BREAST History of Any Multi-Drug Resistant Organisms: None Reported Past Surgical History: Breast Surgery, Cholecystectomy, Orthopedic Surgery Additional Past Surgical History / Comment(s): Fatty Tumor EXC RT AXILLA. LT FOOT BUNION. Left breast lumpectomy 2016, RT BREAST NEEDLE BIOSPY, COLONOSCOPY Past Anesthesia/Blood Transfusion Reactions: Motion Sickness, Postoperative Nausea & Vomiting (PONV) Additional Past Anesthesia/Blood Transfusion Reaction / Comment(s): AFTER LT BREAST BX 11/01/15, DEVELOPED HIVES ON BREAST. Past Psychological History: Anxiety, Depression Additional Psychological History / Comment(s): HX OF CHILD IN PAST. Smoking Status: Former smoker Past Alcohol Use History: Occasional Additional Past Alcohol Use History / Comment(s): SMOKED 17 YEARS, ON/OFF FOR FEW YEARS, LAST 2014. Past Drug Use History: None Reported - Past Family History Mother Family Medical History: Cancer, Hypertension Additional Family Medical History / Comment(s): COLON CA. Medications and Allergies Home Medications Medication Instructions Recorded Confirmed Type Albuterol Sulfate [Ventolin HFA] 1 - 2 puff INHALATION RT-Q4H PRN 11/02/1401/18 History Loratadine [Claritin] 10 mg PO DAILY PRN 11/02/14 01/18/18 History Omeprazole [PriLOSEC] 20 mg PO DAILY PRN 11/02/14 01/18/18 History Fluticasone/Salmeterol [Advair 1 puff INHALATION RT-BID 11/19/15 01/18/18 History 100-50 Diskus] Acetaminophen [Tylenol Extra 500 mg PO DAILY PRN 11/27/17 01/18/18 History Strength] Ibuprofen [Advil] 200 mg PO DAILY PRN 01/18/18 01/18/18 History Allergies Allergy/AdvReac Type Severity Reaction Status Date / Time latex Allergy Rash/Hives Verified 11/27/17 06:43 Penicillins Allergy Rash/Hives Verified 11/27/17 06:43 prednisone AdvReac Dyspnea Verified 11/27/17 06:43 Surgical - Exam Vital Signs Pulse BP Pulse Ox 92 146/96 96 01/18/18 10:07 01/18/18 10:07 01/18/18 10:07 - General moderate distress, obese - Eyes normal ocular movement, no icteric - ENT no hearing loss, no congestion - Neck no masses, trachea midline - Respiratory normal respiratory effort, clear to auscultation - Cardiovascular Rhythm: regular Heart Sounds: normal: S1, S2 - Abdomen Abdomen: soft, non tender, no guarding, no rigid, no rebound - Neurologic no disoriented, no combative - Musculoskeletal normal gait, normal posture - Psychiatric oriented to time, oriented to person, oriented to place, speech is normal, memory intact Impression/plan: 1. Right breast exam multiple positional exam well-healed scar no dominant masses or nodules of concern Right axilla: No adenopathy of concern Left breast: Multiple positional exam changes related to prior lumpectomy no dominant masses or nodules of concern Left axilla: No adenopathy of concern Assessment and Plan Assessment: Impression/plan: 1. Prior history of left breast DCIS treated with lumpectomy and Reanna procedure 2. Recent DCIS with close margin right breast possible multifocal disease 3. Arthritis Plan: 1. Consider MRI of the right breast 2. At minimum reexcision of area of concern in the right breast Cc: Dr. Richardson
== END | disposition home or self-care (01) ==
LOC: WWCWWP 09:39
PROVIDERS: ATTEND Surgery
DX: D05.11 Intraductal carcinoma in situ of right breast (principal); Z85.3 Personal history of malignant neoplasm of breast; Z53.9 Procedure and treatment not carried out, unspecified reason; Z88.0 Allergy status to penicillin; Z87.891 Personal history of nicotine dependence; K21.9 Gastro-esophageal reflux disease without esophagitis; J45.909 Unspecified asthma, uncomplicated; F32.9 Major depressive disorder, single episode, unspecified; E78.5 Hyperlipidemia, unspecified

== ENCOUNTER → 2018-01-29 | Outpatient (CLI) | payer BC ==
--- NOTE | 2018-01-30 09:48 | BMR ---
EXAMINATION TYPE: MR breast BILAT wo con DATE OF EXAM: 01/29/2018 COMPARISON: NONE HISTORY: Abnormal mammogram, Hx of left-sided Breast ca in 2016 high-grade DCIS presents with abnorma l mammogram. Stereotactic guided core biopsy November 09, 2017 of ADH. Needle local right breast high-gr reji DCIS on November 27, 2017. CONTRAST: Multiplanar, multisequence images of the breasts were acquired utilizing 0 mL intravenous gadolinium contrast. TECHNIQUE: A series of fat and water weighted images in the long and short axis views of both breasts are obtained in conjunction with dynamic contrast MRI with subtraction technique. Three-dimensional and additional postprocessing imaging is created on independent workstation and reviewed during offi cial interpretation of this study. REFERENCE: Bilateral breast mammogram October 18, 2017 BI-RADS 4. CTA chest November 06, 2017. FINDINGS: Exam is noted suboptimal essentially nondiagnostic as there is unusual large artifact acros s the right breast with inhomogeneous fat saturation. Several attempts were made to correct this with out success. At this point patient was struggling to hold still due to discomfort and could not compl ete further imaging, postcontrast imaging was not performed. Images obtained show distortion from lum pectomy changes in the upper outer aspect of the left breast. IMPRESSION: As above, failed nondiagnostic study.
== END | disposition home or self-care (01) ==
LOC: RADMRIMAIN 18:40
PROVIDERS: ATTEND Surgery
DX: Z08 Encounter for follow-up examination after completed treatment for malignant neoplasm (principal); Z85.3 Personal history of malignant neoplasm of breast
CPT/HCPCS: 36415; 77059; 82565

== ENCOUNTER → 2018-05-09 | Outpatient (CLI) | payer BC ==
[2018-05-09 11:01] VITALS: BP 147/78; PULSE 83; RESP 16; TEMP 96.6; BMI 28.8
--- NOTE | 2018-05-09 11:30 | P.GSHP ---
History of Present Illness H&P Date: 05/09/18 Chief Complaint: DCIS The patient is a 62-year-old white female who is status post left breast lumpectomy and Reanna treatment for DCIS approximately 2 and half years ago. She had no hormonal or chemotherapy. The antiestrogen treatment exacerbated hot flashes. She had a mammogram showing an area of concern in the right breast and underwent a biopsy which resulted in an open by biopsy with needle localization. Pathology from her open biopsy with needle localization is from 1517. This revealed high-grade ductal carcinoma in situ closely approximating the posterior margin less than 1 mm from the margin. There was concern that this may represent multifocal disease and the patient underwent a bilateral breast MRI on . Unfortunately the results of this were nondiagnostic secondary to motion artifact. The patient at this time denies any masses in her breasts, she has no pain in her breast. She has no nipple discharge or skin changes of concern. She has not had any infection or trauma in her breast. Family history: 1. Paternal aunt: Breast cancer 2. Paternal grandmother breast cancer 3. Maternal cousin breast cancer in her 40s 4. Maternal cousin breast cancer in her 40s Past surgical history: 1. Cholecystectomy 2. Lipoma under her right arm 3. Left bunion 4. Left lumpectomy 5. Right breast biopsy Past medical history: 1. GERD Hormonal history: Menarche: 16 Pregnancies: 2 but first live at 26 did not breast feed Menopause: 54 control pills: 1 year Hormones: Negative Social history: Smoke: Former smoker stopped in 2009 Alcohol: Weekly Drugs: Negative - Constitutional Comment: tooth infection pending root canal Constitutional: Denies chills, Denies fever - EENT Eyes: denies blurred vision, denies pain Ears: deny: decreased hearing, tinnitus Ears, nose, mouth and throat: Denies headache, Denies sore throat - Breasts Breasts: bilateral: as per HPI - Cardiovascular Cardiovascular: Denies chest pain, Denies shortness of breath - Respiratory Comment: asthma Respiratory: Denies cough, Denies 7 - Gastrointestinal Gastrointestinal: Reports diarrhea, Denies abdominal pain, Denies nausea, Denies vomiting - Genitourinary (Female) Genitourinary: Denies dysuria, Denies hematuria - Menstruation Menstruation: Reports postmenopausal - Musculoskeletal Comment: arthritis hands - Integumentary Integumentary: Denies pruritus, Denies rash - Neurological Neurological: Denies numbness, Denies weakness - Psychiatric Psychiatric: Denies anxiety, Denies depression - Endocrine Endocrine: Denies fatigue, Denies weight change - Hematologic/Lymphatic Comment: ibuprofen - Allergic/Immunologic Comment: as above Past Medical History Past Medical History: Asthma, Cancer, GERD/Reflux, Hyperlipidemia, Osteoarthritis (OA) Additional Past Medical History / Comment(s): HX BACK PROB, RT SCIATICA. . HX PVC'S 01/2015. LT BREAST DUCTAL CARCINOMA INSITU 2015., POSS CANCER TO RT BREAST History of Any Multi-Drug Resistant Organisms: None Reported Past Surgical History: Breast Surgery, Cholecystectomy, Orthopedic Surgery Additional Past Surgical History / Comment(s): Fatty Tumor EXC RT AXILLA. LT FOOT BUNION. Left breast lumpectomy 2015, RT BREAST NEEDLE BIOSPY, COLONOSCOPY Past Anesthesia/Blood Transfusion Reactions: Motion Sickness, Postoperative Nausea & Vomiting (PONV) Additional Past Anesthesia/Blood Transfusion Reaction / Comment(s): AFTER LT BREAST BX 11/01/15, DEVELOPED HIVES ON BREAST. Past Psychological History: Anxiety, Depression Additional Psychological History / Comment(s): HX OF CHILD IN PAST. Smoking Status: Former smoker Past Alcohol Use History: Occasional Additional Past Alcohol Use History / Comment(s): SMOKED 17 YEARS, ON/OFF FOR FEW YEARS, LAST 2014. Past Drug Use History: None Reported - Past Family History Mother Family Medical History: Cancer, Hypertension Additional Family Medical History / Comment(s): COLON CA. Medications and Allergies Home Medications Medication Instructions Recorded Confirmed Type Albuterol Sulfate [Ventolin HFA] 1 - 2 puff INHALATION RT-Q4H PRN 11/02/1405/09 History Loratadine [Claritin] 10 mg PO DAILY PRN 11/02/14 05/09/18 History Omeprazole [PriLOSEC] 20 mg PO DAILY PRN 11/02/14 05/09/18 History Fluticasone/Salmeterol [Advair 1 puff INHALATION RT-BID 11/19/15 05/09/18 History 100-50 Diskus] Acetaminophen [Tylenol Extra 500 mg PO DAILY PRN 11/27/17 05/09/18 History Strength] Ibuprofen [Advil] 200 mg PO DAILY PRN 01/18/18 05/09/18 History Amoxicillin 500 mg PO Q8H 05/09/18 05/09/18 History Allergies Allergy/AdvReac Type Severity Reaction Status Date / Time latex Allergy Rash/Hives Verified 05/09/18 10:52 Penicillins Allergy Rash/Hives Verified 05/09/18 10:52 prednisone AdvReac Dyspnea Verified 05/09/18 10:52 Surgical - Exam Vital Signs Temp Pulse Resp BP Pulse Ox 96.6 F L 83 16 147/78 95 05/09/18 10:54 05/09/18 10:54 05/09/18 10:54 05/09/18 10:54 05/09/18 10:54 BMI 28.9 - General well developed, well nourished, no distress - Eyes normal ocular movement, no icteric - ENT no hearing loss, no congestion - Neck no masses, trachea midline - Respiratory normal respiratory effort, clear to auscultation - Cardiovascular Rhythm: regular Heart Sounds: normal: S1, S2 - Abdomen Abdomen: soft, non tender, no guarding, no rigid, no rebound - Integumentary no rash, no abnormal pigmentation - Neurologic no disoriented, no combative - Musculoskeletal normal gait, normal posture - Psychiatric oriented to time, oriented to person, oriented to place, speech is normal, memory intact Breast examination: Right breast: Multi-positional exam no dominant masses or nodules of concern, well-healed scar from prior biopsy Right axilla: No adenopathy of concern Left breast: Multi-positional exam postop changes from prior lumpectomy and Reanna treatment Left axilla: No adenopathy of concern Results MRI results reviewed Assessment and Plan Assessment: Impression: 1. Patient status post left breast lumpectomy for high-grade DCIS and treatment via JESSENIA procedure 2. Right breast DCIS with close posterior margin Plan; 1. Right breast mammogram 2. At least wide reexcision of area of concern in the right breast will give full recommendation after repeat right breast mammogram 3. Close surveillance left breast Cc: Dr. Richardson
== END | disposition home or self-care (01) ==
LOC: WWCWWP 10:32
PROVIDERS: ATTEND Surgery
DX: Z53.9 Procedure and treatment not carried out, unspecified reason (principal)

== ENCOUNTER → 2018-05-22 | Outpatient (CLI) | payer BC ==
--- NOTE | 2018-05-22 13:57 | MM ---
Reason for exam: follow-up at short interval from prior study. Last mammogram was performed 7 months ago. History: Patient is postmenopausal, has history of breast cancer at age 62, and has history of high-risk lesion on a previous biopsy at age 62. Family history of breast cancer in paternal aunt and breast cancer in paternal grandmother at age 80. Malignant MG pre op loc each addl RT of the right breast, November 27, 2017. Malignant MG pre op needle loc RT of the right breast, November 27, 2017. High risk MG stereo VAD BX RT of the right breast, November 09, 2017. Malignant MG pre op needle loc LT of the left breast, November 23, 2015. Malignant MG stereo VAD BX LT of the left breast, November 01, 2015. Benign excisional biopsy of the right breast, 1997. Physical Findings: Nurse did not find any significant physical abnormalities on exam. MG 3D Diag Mammo W/Cad RT CC and MLO view(s) were taken of the right breast. Prior study comparison: October 18, 2017, bilateral MG diagnostic mammo w CAD EDDIE. October 09, 2016, bilateral MG 3d diag mammo w/cad EDDIE. The breast tissue is heterogeneously dense. This may lower the sensitivity of mammography. Stable scattered calcifications. Stable post operative changes. No significant new findings when compared with previous films. These results were verbally communicated with the patient and result sheet given to the patient on 05/22/18. ASSESSMENT: Benign, BI-RAD 2 RECOMMENDATION: Routine screening mammogram of both breasts in 6 months. Back on schedule.
== END | disposition home or self-care (01) ==
LOC: RADMAMWWP 12:44
PROVIDERS: ATTEND Surgery
DX: R92.8 Other abnormal and inconclusive findings on diagnostic imaging of breast (principal); Z85.3 Personal history of malignant neoplasm of breast
CPT/HCPCS: 77061; 77065

== ENCOUNTER → 2018-05-31 | Outpatient (CLI) | payer BC ==
[2018-05-31 15:50] VITALS: BP 116/78; PULSE 89; RESP 18; TEMP 98.1; BMI 28.8
--- NOTE | 2018-05-31 16:01 | P.PN ---
Progress Note - Text Progress Note Date: 05/31/18 Kiesha is a 62-year-old white female who is status post left breast lumpectomy and Reanna treatment for ductal carcinoma in situ. This was done in 2015. The patient approximately 6 months ago underwent a lumpectomy of the right breast which revealed high-grade DCIS. The posterior margin was close. It was recommended that the patient have wider excision and radiation therapy. The patient however I was set for a vacation and has now returned with a repeat right breast mammogram. At this time the mammogram does not show further suspicious calcifications and appears to be benign. The patient does not want any further surgical intervention nor is she interested in radiation therapy. Additionally she is not interested in any hormonal manipulation as she had an attempt at this in the past and had hot flashes. At the present time the patient is feeling well and does not wish any further treatment. She will agree to close surveillance. The patient understands that she is at risk for development of cancer in one or both breasts and additionally that this cancer could be invasive and could be life-threatening. At this time the patient has agreed to close surveillance. Impression/Plan 1. Bilateral breast ductal carcinoma in situ 2. Left breast treated with lumpectomy and Reanna radiation 3. Right breast treated with lumpectomy close margins patient has opted to not undergo reexcision nor radiation 3. Close surveillance 4. Bilateral mammogram in physician exam in 6 months 5. If patient notes anything of concern should see me sooner CC: Dr. Jarrell
== END ==
LOC: WWCWWP 15:21
PROVIDERS: ATTEND Surgery
DX: Z53.9 Procedure and treatment not carried out, unspecified reason (principal)

== ENCOUNTER → 2018-11-08 | Outpatient (CLI) | payer BC ==
--- NOTE | 2018-11-08 12:08 | P.STRESS ---
- Stress Test Note Stress Test Results/Findings: Exam Performed: stress echo exercise Exam Date: 11/08/18 Reason for Exam: PALP / CP Height: 5 ft 8 in Weight: 88.451 kg Protocol: DEMARCUS Stage: 2 Duration of Exercise: 5:00 Resting Heart Rate: 81 Resting Blood Pressure: 126/58 Maximum Achieved Heart Rate: 155 Maximum Achieved Blood Pressure: 163/84 85% PMHR: 135 100% PMHR: 159 METS: 7.0 Technologist Comment: Stress Test Results/Findings: This is a 63-year-old female being evaluated for such chest pain and palpitations. Stress data: Baseline EKG showed sinus rhythm with normal IA interval and QRS duration. Blood pressure at rest is 126/58, pulse rate of 81. Patient walked on the Demarcus protocol for 5 minutes achieving a maximal heart rate of 155 with a blood pressure of 149/75. Patient did not express any chest pain. EKGs did not reveal any changes of ischemia. No arrhythmias are noted. Echo data: Baseline echo images showed normal wall motion and thickening. Exercise echo images showed augmentation of wall motion and thickening in all segments. Final impression: #1. Negative stress test #2. Negative stress echo.
--- NOTE | 2018-11-11 14:52 | ECHOS ---
Stress Test Results/Findings: Exam Performed: stress echo exercise Exam Date: 11/08/18 Reason for Exam: PALP / CP Height: 5 ft 8 in Weight: 88.451 kg Protocol: DEMARCUS Stage: 2 Duration of Exercise: 5:00 Resting Heart Rate: 81 Resting Blood Pressure: 126/58 Maximum Achieved Heart Rate: 155 Maximum Achieved Blood Pressure: 163/84 85% PMHR: 135 100% PMHR: 159 METS: 7.0 Technologist Comment: Stress Test Results/Findings: This is a 63-year-old female being evaluated for such chest pain and palpitations. Stress data: Baseline EKG showed sinus rhythm with normal MT interval and QRS duration. Blood pressure at rest is 126/58, pulse rate of 81. Patient walked on the Demarcus protocol for 5 minutes achieving a maximal heart rate of 155 with a blood pressure of 149/75. Patient did not express any chest pain. EKGs did not reveal any changes of ischemia. No arrhythmias are noted. Echo data: Baseline echo images showed normal wall motion and thickening. Exercise echo images showed augmentation of wall motion and thickening in all segments. Final impression: #1. Negative stress test #2. Negative stress echo. ELOYD
--- NOTE | 2018-11-13 11:03 | HM ---
HOLTER MONITOR REPORT Kiesha Schaffer has a history of palpitations. A 24 Holter monitor was ordered. A 24 Holter monitor shows sinus mechanism with frequent PVCs, PVC burden is about 13%, often in a bigeminal and trigeminal pattern. No nonsustained ventricular tachycardia. PVCs are for single morphology. IMPRESSION: 1. Sinus rhythm with normal heart rates ranging from 55-133 beats per minute, average 77 beats per minute. 2. Frequent premature ventricular contractions of a single morphology. Premature ventricular contraction burden above 13%. MMODL / IJN: [id number] /
== END | disposition home or self-care (01) ==
LOC: RADNMMAIN 09:38
PROVIDERS: ATTEND Family Medicine
DX: I49.3 Ventricular premature depolarization (principal); R07.9 Chest pain, unspecified; Z88.8 Allergy status to other drugs, medicaments and biological substances
CPT/HCPCS: 93225; 93226; 93351

== ENCOUNTER → 2018-11-21 | Outpatient (CLI) | payer BC ==
[2018-11-21 13:53] VITALS: BP 141/73; RESP 18; TEMP 97.5; BMI 29.6
--- NOTE | 2018-11-22 11:19 | MM ---
Reason for exam: follow-up at short interval from prior study. Last mammogram was performed 6 months ago. History: Patient is postmenopausal, has history of breast cancer at age 62, and has history of high-risk lesion on a previous biopsy at age 62. Family history of breast cancer in paternal aunt and breast cancer in paternal grandmother at age 80. Malignant MG pre op loc each addl RT of the right breast, November 27, 2017. Malignant MG pre op needle loc RT of the right breast, November 27, 2017. High risk MG stereo VAD BX RT of the right breast, November 09, 2017. Malignant MG pre op needle loc LT of the left breast, November 23, 2015. Malignant MG stereo VAD BX LT of the left breast, November 01, 2015. Benign excisional biopsy of the right breast, 1997. Physical Findings: Nurse did not find any significant physical abnormalities on exam. MG 3D Diag Mammo W/Cad EDDIE Bilateral CC and MLO view(s) were taken. Prior study comparison: May 22, 2018, right breast MG 3d diag mammo w/cad RT. October 18, 2017, bilateral MG diagnostic mammo w CAD EDDIE. The breast tissue is heterogeneously dense. This may lower the sensitivity of mammography. Finding #1: Architectural distortion in the upper outer quadrant, middle position of the left breast. Finding #2: There are typically benign round calcifications in both breasts. Surgical changes right breast. New finding since May 22, 2018 and October 18, 2017. ASSESSMENT: Suspicious, BI-RAD 4 RECOMMENDATION: Surgical consultation of the left breast. (increasing distortion) PRELIMINARY REPORT CALLED AND FAXED TO DR. BERNAL ON 11/21/18.
== END ==
LOC: WWCWWP 12:50
PROVIDERS: ATTEND Surgery
DX: D05.11 Intraductal carcinoma in situ of right breast (principal)
CPT/HCPCS: 77062; 77066

== ENCOUNTER → 2018-12-13 | Day surgery (SDC) | payer BC ==
[2018-12-13 07:26] VITALS: RESP 16; BMI 29.6
[2018-12-13 08:50] VITALS: BP 131/81; PULSE 65; TEMP 98.2
--- NOTE | 2018-12-13 09:10 | P.PCN ---
Date of Procedure: 12/13/18 Preoperative Diagnosis: Mammographic abnormality left breast Postoperative Diagnosis: Increasing distortion radiographically left breast Procedure(s) Performed: Left breast stereotactic core biopsy Anesthesia: local Surgeon: Melissa Hurd Estimated Blood Loss (ml): 0 Pathology: other (Breast tissue) Condition: stable Disposition: same day Indications for Procedure: Increasing radiographic distortion left breast at site of prior operative procedure Operative Findings: Dense breast tissue Description of Procedure: (63-year-old white female status post lumpectomy of the left breast and radiation treatment in 2016. She has increasing radiographic distortion at the site of prior Left breast biopsy treatment. Is recommended that she undergo core biopsy sampling of this site. Risks and benefits of procedure discussed with the patient. She understands and wishes to proceed. Patient was taken to the stereotactic core biopsy room and positioned on the lower table. The approach was CC from above. A group sales representative film was obtained and the area of concern was identified. A sterile repair was obtained. The area was targeted. The breast was prepped using Betadine. 10 mL of 1% lidocaine were used to anesthetize the breast. An additional 10 mL of 1% lidocaine were attached to the core biopsy needle such that it was delivered as a biopsy was obtained. The needle was driven to the correct coordinates. Prefire stereo pair was obtained. The patient was noted to be in the correct location and the needle was fired. Post fire stereo pair was obtained. The needle was again noted to be in the correct location and approximately 12 core biopsies were obtained. A 9-gauge vacuum-assisted rotating core biopsy needle was utilized to obtain the specimens. Following this the area was lavaged. No radiographic spe cimen was obtained the spleen were not targeted microcalcifications. A secure marked top at clip was left in place. Radiograph revealed this was in the correct location. The specimen was sent to pathology. The patient will follow- up Dr. Kingsley next week. There were no immediate postoperative complications.
--- NOTE | 2018-12-13 09:22 | MM ---
EXAMINATION TYPE: MG stereo VAD BX LT DATE OF EXAM: 12/13/2018 COMPARISON: Prior mammogram November 21, 2018 and older mammograms. CLINICAL HISTORY: History of breast cancer 2016 with increasing mammogram abnormality. TECHNIQUE: Stereotactic guided core biopsy of left breast with clip placement and follow-up two-view mammogram. FINDINGS: The procedure of stereotactic guided core biopsy was explained to the patient. Benefits, alternatives, and risks were discussed. An informed consent was then obtained. [facility] Shortness pathway was lateral approach. I performed the localization, then surgeon, Dr. Hurd performed the remainder of the procedure. A vacuum assisted biopsy gun was used to obtain multiple core samples. The patient tolerated the procedure well without any immediate complication. The patient was kept in the radiology department for short stay after the procedure and then discharged home in stable condition. Post biopsy mammogram shows the clip to appear in satisfactory position relative to the targeted area of concern on the preprocedure images. IMPRESSION: SUCCESSFUL, UNCOMPLICATED STEREOTACTIC GUIDED CORE BIOPSY OF AREA OF CONCERN IN THE LEFT BREAST, FULL PATHOLOGY RESULTS TO FOLLOW. Intermediate index of suspicion noted at time of procedure. Pathology Results: Benign LEFT BREAST, STEREOTACTIC CORE BIOPSY: Benign breast with dense stromal fibrosis/scar, focal fat necrosis and background fibrocystic changes. Recommendation Follow up mammogram of the left breast in 6 months. ELKIN
== END ==
LOC: RADMAMWWP 07:01
PROVIDERS: ATTEND Surgery
DX: N60.32 Fibrosclerosis of left breast (principal); N64.1 Fat necrosis of breast
CPT/HCPCS: 88305; 19081; A4648; J2001

== ENCOUNTER → 2018-12-19 | Outpatient (CLI) | payer BC ==
[2018-12-19 13:55] VITALS: BP 130/86; PULSE 92; RESP 18; TEMP 98.2; BMI 29.6
--- NOTE | 2018-12-19 14:07 | P.PN ---
Subjective Progress Note Date: 12/19/18 Principal diagnosis: Patient is a 63-year-old white female status post left breast stereotactic core biopsy. Pathology was benign. The area of concern was felt to be adequately sampled. The patient is going to have a repeat left breast mammogram in 6 months time. Of concern is the fact that she had previously undergone a left breast lumpectomy with Reanna treatment for ductal carcinoma in situ in 2015. She did not have any hormonal or chemotherapy. She had an abnormal malady of concern in the right breast for which she underwent a biopsy which resulted in an open biopsy with needle localization. Pathology from the [place] biopsy [place] [address]. This revealed high-grade DCIS closest to the posterior margin less than 1 mm. There was some current certain that this may represent multifocal disease [place] [address]. Unfortunately the results of these were nondiagnostic secondary to motion artifact. The patient declined radiation therapy to the right breast. She is being followed closely. Physical exam: Lungs: Clear Heart: Regular rate and rhythm Left breast: Biopsy site mild ecchymosis Impression: 1. Left breast DCIS status post lumpectomy and Reanna radiation 2. Patient biopsy benign 3. No evidence of recurrent disease left breast 4. Recent right breast mammogram no new lesions of concern 5. Patient status post right breast needle local excisional biopsy which revealed DCIS close to margin however patient at this time is declined further treatment of the right breast Plan: 1. Left breast mammogram in 6 months time with physician exam at that time 2. Right breast mammogram 1 year from prior mammogram 3. Medical management of any medical conditions Patient is well aware that the right breast has DCIS with a close margin however has declined further treatment. At this time we will follow her closely. The patient will call us if she has any questions or concerns. Cc: Dr. Jarrell Objective - Vital Signs Vital signs: Vital Signs Temp 98.2 F 12/19/18 13:51 Pulse 92 12/19/18 13:51 Resp 18 12/19/18 13:51 BP 130/86 12/19/18 13:51 Pulse Ox 95 12/19/18 13:51 Intake & Output 12/18/18 12/19/18 12/19/18 18:59 06:59 18:59 Weight 88.451 kg
== END ==
LOC: WWCWWP 13:12
PROVIDERS: ATTEND Surgery
DX: Z53.9 Procedure and treatment not carried out, unspecified reason (principal)

== ENCOUNTER → 2019-06-16 | Outpatient (CLI) | payer BC ==
--- NOTE | 2019-06-16 14:21 | MM ---
Reason for exam: follow-up at short interval from prior study. Last mammogram was performed 7 months ago. History: Patient is postmenopausal, has history of breast cancer at age 62, and has history of high-risk lesion on a previous biopsy at age 62. Family history of breast cancer in paternal aunt and breast cancer in paternal grandmother at age 80. Benign MG stereo VAD BX LT of the left breast, December 13, 2018. Malignant MG pre op loc each addl RT of the right breast, November 27, 2017. Malignant MG pre op needle loc RT of the right breast, November 27, 2017. High risk MG stereo VAD BX RT of the right breast, November 09, 2017. Malignant MG pre op needle loc LT of the left breast, November 23, 2015. Malignant MG stereo VAD BX LT of the left breast, November 01, 2015. Benign excisional biopsy of the right breast, 1997. Physical Findings: Nurse did not find any significant physical abnormalities on exam. MG 3D Diag Mammo W/Cad LT CC and MLO view(s) were taken of the left breast. Prior study comparison: November 21, 2018, bilateral MG 3d diag mammo w/cad EDDIE. May 22, 2018, right breast MG 3d diag mammo w/cad RT. The breast tissue is heterogeneously dense. This may lower the sensitivity of mammography. Finding #1: Architectural distortion in the upper outer quadrant of the left breast. Finding #2: There are stable typically benign calcifications in the left breast. There is a chronic nodularity in the left breast. These results were verbally communicated with the patient and result sheet given to the patient on 06/16/19. ASSESSMENT: Benign, BI-RAD 2 RECOMMENDATION: Follow-up diagnostic mammogram of both breasts in 6 months. Back on schedule. Manage patient on a clinical basis.
== END ==
LOC: RADMAMWWP 12:48
PROVIDERS: ATTEND Surgery
DX: R92.8 Other abnormal and inconclusive findings on diagnostic imaging of breast (principal)
CPT/HCPCS: 77061; 77065

== ENCOUNTER → 2019-06-20 | Outpatient (CLI) | payer BC ==
[2019-06-20 12:39] VITALS: BP 153/92; PULSE 77; RESP 18; TEMP 97.7
--- NOTE | 2019-06-20 13:19 | P.PN ---
Subjective Progress Note Date: 06/20/19 Principal diagnosis: DCIS bilateral breast surveillance Kiesha is a 63-year-old white female status post left breast lumpectomy and Reanna treatment for DCIS approximately 3 years ago in 2016. She had no hormonal or chemotherapy. The antiestrogen treatment exacerbated hot flashes and she took it only for 1 week. She then had a mammographic abnormality showing area of concern in the right breast. She underwent a biopsy which resulted in an open biopsy with needle localization. Pathology from open biopsy with needle localization was from [id number]. This revealed high-grade ductal carcinoma in situ closed approximating the posterior margin less than 1 mm from the margin. There is concern that this may represent multifocal disease and the patient underwent a bilateral breast MRI on . Unfortunately the results of this were nondiagnostic secondary to motion artifact. The patient underwent a stereotactic core biopsy and 53 119 of the left breast. Pathology revealed benign breast disease with dense stromal fibrosis/scar, focal fat necrosis, and background fibrocystic changes. The patient has most recently had bilateral mammogram on . This was felt to be stable benign calcifications in the left breast with some chronic nodularity. The right breast tissue is heterogeneously dense. This was a BIRADS 2 and follow-up diagnostic mammogram of both breasts in 6 months was recommended. She herself does not feel anything of concern in either breast. Not having any complaints of pain or changes in either breast. No nipple discharge. Family history: 1. Paternal aunt: Breast cancer 2. Paternal grandmother: Breast cancer 2. Maternal cousin: Breast cancer in her 40s 4. A second maternal cousin breast cancer in her 40s Hormonal history: Menarche: 16 Pregnancies:2, 2 children, first at 26, breast fed: no menopause: 54 BCP: 1 year hormones: none Past surgical history: 1. Cholecystectomy 2. Lipoma under her right arm 3. Left bunion 4. Left lumpectomy 5. Right breast biopsy Medical history: 1. reflux 2. asthma Social History: smoke: former stopped 2009 Alcohol: 1-2/beers on sunday drugs: none ROS: HEENT: wears glasses lungs: asthma heart: passed a stress test last week, palpitations GI: none : none Musculoskeletal: Arthritis Neurologic: none Psychiatric: none Integument: Negative Objective - Vital Signs Vital signs: Vital Signs Temp 97.7 F 06/20/19 12:37 Pulse 77 06/20/19 12:37 Resp 18 06/20/19 12:37 BP 153/92 06/20/19 12:37 Pulse Ox 99 06/20/19 12:37 Intake & Output 06/19/19 06/20/19 06/20/19 18:59 06:59 18:59 Weight 87.543 kg - Exam BMI 29.3 - Constitutional General appearance: Present: average body habitus - EENT Eyes: Present: EOMI ENT: Present: hearing grossly normal - Neck Neck: Present: normal ROM - Respiratory Respiratory: bilateral: CTA - Cardiovascular Rhythm: regular Heart sounds: normal: S1, S2 - Gastrointestinal General gastrointestinal: Present: normal bowel sounds, soft - Integumentary Integumentary: Present: normal turgor - Musculoskeletal Musculoskeletal: Present: gait normal - Psychiatric Psychiatric: Present: A&O x's 3, appropriate affect, intact judgment & insight - Additional findings Additional findings: Breast examination: Bra 42D grade 3 ptosis Right breast: Multi-positional exam no dominant masses or nodules of concern, fibrocystic changes Right axilla: No adenopathy of concern Left breast: Well-healed scar from prior lumpectomy changes of the lumpectomy noted on exam otherwise no dominant masses or nodules of concern Left axilla: No adenopathy of concern Assessment and Plan Assessment: Impression: 1. Bilateral DCIS 2. Recent mammogram stable repeat bilateral mammogram in 6 months 3. Fibrocystic breast changes 4. Family history of breast cancer 5. Patient was started on tamoxifen but was symptomatic with it and opted not to take that Plan: 1. Bilateral mammogram in 6 months with physician exam at that time 2. patient is not following with medical oncology 3. not follows with radiation oncology CC: DR. Jarrell Time with Patient: Less than 30
== END ==
LOC: WWCWWP 12:28
PROVIDERS: ATTEND Surgery
DX: Z53.9 Procedure and treatment not carried out, unspecified reason (principal)

== ENCOUNTER 2019-11-13 18:00 | Emergency (ER) | payer BC ==
[2019-11-13 18:08] VITALS: RESP 18; TEMP 98.3
--- NOTE | 2019-11-13 18:36 | ED ---
SOB HPI - General Chief Complaint: Shortness of Breath Stated Complaint: SOB Time Seen by Provider: 11/13/19 18:13 Source: patient Mode of arrival: ambulatory Limitations: no limitations - History of Present Illness Initial Comments: Patient is a 64 year old female, with history of asthma, presenting to the emergency Department with complaints of shortness of breath 24 days now. Patient states her symptoms started with a cough and mild shortness of breath and she attributed to a possible asthma exacerbation. States she has been doing at home albuterol nebulizer treatments and has been monitoring her symptoms along with her PCP, Dr. Jarrell. Patient states she has done to telemetry health visits with her PCP. Patient states she has been having increasing shortness of breath with exertion as well as coughing. She also admits to intermittent chest pain throughout this period as well as "lung pain." Patient states she has been doing her rescue inhaler and also a new inhaler that her PCP prescribed her but she does not feel like it is helping her symptoms. She feels like she is getting worse. She denies any fever or chills. She does admit to mild abdominal pain as well as nausea and vomiting but states these symptoms are chronic in nature. She denies any urinary complaints. She denies a headache or dizziness. She has no other complaints at this time. Upon arrival to the ER, her vital signs are stable. - Related Data Home Medications Medication Instructions Recorded Confirmed Albuterol Sulfate [Ventolin HFA] 1 - 2 puff INHALATION RT-Q4H PRN 11/02/14 06/20/19 Loratadine [Claritin] 10 mg PO DAILY PRN 11/02/14 06/20/19 Omeprazole [PriLOSEC] 20 mg PO DAILY PRN 11/02/14 06/20/19 Fluticasone/Salmeterol [Advair 1 puff INHALATION RT-BID 11/19/15 06/20/19 100-50 Diskus] Acetaminophen [Tylenol Extra 500 mg PO DAILY PRN 11/27/17 06/20/19 Strength] Ibuprofen [Advil] 200 mg PO DAILY PRN 01/18/18 06/20/19 Allergies Allergy/AdvReac Type Severity Reaction Status Date / Time Beta-Blockers Allergy Dyspnea Verified 11/13/19 18:09 (Beta-Adrenergic Bloc latex Allergy Rash/Hives Verified 11/13/19 18:09 monosodium glutamate Allergy Rapid Verified 11/13/19 18:09 Heart Rate montelukast [From Singulair] Allergy Rash/Hives Verified 11/13/19 18:09 Penicillins Allergy Rash/Hives Verified 11/13/19 18:09 polyethylene glycol 3350 Allergy Rash/Hives Verified 11/13/19 18:09 [From Miralax] prednisone AdvReac Dyspnea Verified 11/13/19 18:09 Review of Systems ROS Statement: Those systems with pertinent positive or pertinent negative responses have been documented in the HPI. ROS Other: All systems not noted in ROS Statement are negative. Past Medical History Past Medical History: Asthma, Cancer, GERD/Reflux, Hyperlipidemia, Osteoarthritis (OA) Additional Past Medical History / Comment(s): HX BACK PROB, RT SCIATICA. . HX PVC'S 01/2015. LT BREAST DUCTAL CARCINOMA INSITU 2015. History of Any Multi-Drug Resistant Organisms: None Reported Past Surgical History: Breast Surgery, Cholecystectomy, Orthopedic Surgery Additional Past Surgical History / Comment(s): Fatty Tumor EXC RT AXILLA. LT FOOT BUNION. Left breast lumpectomy 2015, RT BREAST NEEDLE BIOSPY, COLONOSCOPY Past Anesthesia/Blood Transfusion Reactions: Motion Sickness, Postoperative Nausea & Vomiting (PONV) Additional Past Anesthesia/Blood Transfusion Reaction / Comment(s): AFTER LT B REAST BX 11/01/15, DEVELOPED HIVES ON BREAST. Past Psychological History: Anxiety, Depression Smoking Status: Former smoker Past Alcohol Use History: Occasional Past Drug Use History: None Reported - Past Family History Mother Family Medical History: Cancer, Hypertension Additional Family Medical History / Comment(s): COLON CA. General Exam - General Exam Comments Initial Comments: GENERAL: Well-appearing, well-nourished and in no acute distress. HEAD: Atraumatic, normocephalic. EYES: Pupils equal round and reactive to light, extraocular movements intact, sclera anicteric, conjunctiva are normal. ENT: TMs normal, nares patent, oropharynx clear without exudates. Moist mucous membranes. NECK: Normal range of motion, supple without lymphadenopathy or JVD. LUNGS: Breath sounds clear to auscultation bilaterally and equal. No wheezes rales or rhonchi. HEART: Regular rate and rhythm without murmurs, rubs or gallops. ABDOMEN: Soft, nontender, normoactive bowel sounds. No guarding, no rebound. No masses appreciated. : Deferred EXTREMITIES: Normal range of motion, no pitting or edema. No clubbing or cyanosis. NEUROLOGICAL: Cranial nerves II through XII grossly intact. Normal speech, normal gait. PSYCH: Normal mood, normal affect. SKIN: Warm, Dry, normal turgor, no rashes or lesions noted. Limitations: no limitations Course Vital Signs 11/13/19 11/13/19 18:03 19:00 Temperature 98.3 F Pulse Rate 101 H 75 Respiratory 18 18 Rate Blood Pressure 147/81 144/87 O2 Sat by Pulse 96 98 Oximetry Medical Decision Making - Medical Decision Making Patient is a 64-year-old female with history of asthma presenting with shortness of breath 24 days. Patient has been falling with her PCP. Patient felt like her symptoms are increasing since she came to the ER. Her vital signs are stable upon arrival. Her exam is unremarkable. Patient's lab work shows no acute findings. Her d-dimer is normal, troponin is normal, rapid Covid is not detected. EKG shows no acute findings. Chest x-ray shows no acute abnormalities. Patient's vital signs remained stable throughout ER stay. I discussed with patient that her symptoms may be related to a Covid virus. I did give her Decadron in the ER. Patient is stable for discharge. I did recommend continuing with her albuterol inhaler as needed. I also recommended making sure patient is resting at home. Patient is agreement with this plan of care. She'll follow up with her PCP if symptoms persist. Strict return parameters were discussed with the patient and she verbalized understanding. Case discu ssed with Dr. Hussein. - Lab Data Result diagrams: 11/13/19 19:01 11/13/19 19:01 Lab Results 11/13/19 11/13/19 11/13/19 Range/Units 19: 19: 19:01 WBC 9.5 (3.8-10.6) k/uL RBC 4.74 (3.80-5.40) m/uL Hgb 15.0 (11.4-16.0) gm/dL Hct 45.7 (34.0-46.0) % MCV 96.6 (80.0-100.0) fL MCH 31.7 (25.0-35.0) pg MCHC 32.9 (31.0-37.0) g/dL RDW 12.4 (11.5-15.5) % Plt Count 380 (150-450) k/uL Neutrophils % 70 % Lymphocytes % 22 % Monocytes % 5 % Eosinophils % 2 % Basophils % 1 % Neutrophils # 6.7 (1.3-7.7) k/uL Lymphocytes # 2.1 (1.0-4.8) k/uL Monocytes # 0.4 (0-1.0) k/uL Eosinophils # 0.1 (0-0.7) k/uL Basophils # 0.1 (0-0.2) k/uL PT 9.9 (9.0-12.0) sec INR 0.9 (<1.2) APTT 24.1 (22.0-30.0) sec D-Dimer 0.37 (<0.60) mg/L FEU Sodium 131 L (137-145) mmol/L Potassium 4.3 (3.5-5.1) mmol/L Chloride 95 L (98-107) mmol/L Carbon Dioxide 26 (22-30) mmol/L Anion Gap 10 mmol/L BUN 12 (7-17) mg/dL Creatinine 0.84 (0.52-1.04) mg/dL Est GFR (CKD-EPI)AfAm 86 (>60 ml/min/1.73 sqM) Est GFR (CKD-EPI)NonAf 75 (>60 ml/min/1.73 sqM) Glucose 106 H (74-99) mg/dL Plasma Lactic Acid Anshul (0.7-2.0) mmol/L Calcium 9.7 (8.4-10.2) mg/dL Magnesium 2.0 (1.6-2.3) mg/dL Total Bilirubin 0.3 (0.2-1.3) mg/dL AST 20 (14-36) U/L ALT 19 (4-34) U/L Alkaline Phosphatase 79 (38-126) U/L Lactate Dehydrogenase 338 (313-618) U/L Troponin I (0.000-0.034) ng/mL C-Reactive Protein 5.7 (<10.0) mg/L Total Protein 7.8 (6.3-8.2) g/dL Albumin 4.7 (3.5-5.0) g/dL Coronavirus (PCR) (Not Detectd) 11/13/19 11/13/19 11/13/19 Range/Units 19:01 19:01 19:13 WBC (3.8-10.6) k/uL RBC (3.80-5.40) m/uL Hgb (11.4-16.0) gm/dL Hct (34.0-46.0) % MCV (80.0-100.0) fL MCH (25.0-35.0) pg MCHC (31.0-37.0) g/dL RDW (11.5-15.5) % Plt Count (150-450) k/uL Neutrophils % % Lymphocytes % % Monocytes % % Eosinophils % % Basophils % % Neutrophils # (1.3-7.7) k/uL Lymphocytes # (1.0-4.8) k/uL Monocytes # (0-1.0) k/uL Eosinophils # (0-0.7) k/uL Basophils # (0-0.2) k/uL PT (9.0-12.0) sec INR (<1.2) APTT (22.0-30.0) sec D-Dimer (<0.60) mg/L FEU Sodium (137-145) mmol/L Potassium (3.5-5.1) mmol/L Chloride (98-107) mmol/L Carbon Dioxide (22-30) mmol/L Anion Gap mmol/L BUN (7-17) mg/dL Creatinine (0.52-1.04) mg/dL Est GFR (CKD-EPI)AfAm (>60 ml/min/1.73 sqM) Est GFR (CKD-EPI)NonAf (>60 ml/min/1.73 sqM) Glucose (74-99) mg/dL Plasma Lactic Acid Anshul 0.7 (0.7-2.0) mmol/L Calcium (8.4-10.2) mg/dL Magnesium (1.6-2.3) mg/dL Total Bilirubin (0.2-1.3) mg/dL AST (14-36) U/L ALT (4-34) U/L Alkaline Phosphatase (38-126) U/L Lactate Dehydrogenase (313-618) U/L Troponin I <0.012 (0.000-0.034) ng/mL C-Reactive Protein (<10.0) mg/L Total Protein (6.3-8.2) g/dL Albumin (3.5-5.0) g/dL Coronavirus (PCR) Not Detected (Not Detectd) - EKG Data EKG Comments: Normal sinus rhythm, no acute ST segment changes, ventricular rate 75, VT 136, QTC 410. Disposition Clinical Impression: Asthma exacerbation, Suspected COVID-19 virus infection Disposition: HOME SELF-CARE Condition: Stable Instructions (If sedation given, give patient instructions): Upper Respiratory Infection (ED) Additional Instructions: Please return to the Emergency Department if symptoms worsen or any other concerns. Continued with at home nebulizer treatments as well as inhaler as needed for maria elena rtness of breath. Make sure to increase fluid intake and to rest. Follow-up with PCP. Is patient prescribed a controlled substance at d/c from ED?: No Referrals: Robinson Jarrell MD [Primary Care Provider] - 1-2 days
[2019-11-13 19:12] LABS: Basophils # (A) 0.1 k/uL (0-0.2); Basophils % (A) 1 %; Eosinophils # (A) 0.1 k/uL (0-0.7); Eosinophils % (A) 2 %; HCT 45.7 % (34.0-46.0); Lymphocytes # (A) 2.1 k/uL (1.0-4.8); Lymphocytes % (A) 22 %; MCH 31.7 pg (25.0-35.0); MCHC 32.9 g/dL (31.0-37.0); MCV 96.6 fL (80.0-100.0); Mean Platelet Volume 6.3; Monocytes # (A) 0.4 k/uL (0-1.0); Monocytes % (A) 5 %; Neutrophils # (A) 6.7 k/uL (1.3-7.7); Neutrophils % (A) 70 %; Platelet Count 380 k/uL (150-450); RBC 4.74 m/uL (3.80-5.40); RDW 12.4 % (11.5-15.5); WBC 9.5 k/uL (3.8-10.6)
--- NOTE | 2019-11-13 19:20 | XR ---
EXAMINATION TYPE: XR chest 1V portable DATE OF EXAM: 11/13/2019 COMPARISON: 11/06/2017 INDICATION: Suspected Covid, short of breath x24 days, history of asthma TECHNIQUE: Single frontal view of the chest is obtained. FINDINGS: The heart size is normal. The pulmonary vasculature is normal. The lungs are clear. Previous mild increased lung markings have resolved. Note is made of multiple s urgical clips within the right breast axillary region. IMPRESSION: 1. No acute pulmonary process.
[2019-11-13 19:24] LABS: Albumin 4.7 g/dL (3.5-5.0); C Reactive Protein 5.7 mg/L (<10.0); Calcium 9.7 mg/dL (8.4-10.2); Potassium 4.3 mmol/L (3.5-5.1); Total Bilirubin 0.3 mg/dL (0.2-1.3); Total Protein 7.8 g/dL (6.3-8.2)
[2019-11-13 19:33] LABS: D-Dimer 0.37 mg/L FEU (<0.60); INR 0.9 (<1.2); Partial Thromboplastin Time 24.1 sec (22.0-30.0); Prothrombin Time 9.9 sec (9.0-12.0)
[2019-11-13] MEDS ORDERED: DEXAMETHASONE SOD PHOSPHATE 4 MG/ML 1 ML VIAL IV STA (20:21)
[2019-11-13 20:52] VITALS: BP 150/91; PULSE 77
[2019-11-14 11:49] LABS: Ferritin 143.5 ng/mL (10.0-291.0)
== END 2019-11-13 20:51 | disposition home or self-care (01) ==
LOC: EC 18:00
DX: J45.901 Unspecified asthma with (acute) exacerbation (principal); Z20.828 Contact with and (suspected) exposure to other viral communicable diseases; K21.9 Gastro-esophageal reflux disease without esophagitis; Z79.51 Long term (current) use of inhaled steroids; Z79.899 Other long term (current) drug therapy; Z88.8 Allergy status to other drugs, medicaments and biological substances; Z91.040 Latex allergy status; Z88.0 Allergy status to penicillin; Z87.891 Personal history of nicotine dependence; Z85.3 Personal history of malignant neoplasm of breast
CPT/HCPCS: 36415; 93005; 85379; 80053; 82728; 83605; 83615; 83735; 84484; 85025; 85610; 85730; 86140; 87040; 84145; 87635; 71045; 99285; 96374; J1100

== ENCOUNTER → 2019-12-16 | Outpatient (CLI) | payer BC ==
--- NOTE | 2019-12-16 10:33 | MM ---
Reason for exam: follow-up at short interval from prior study. Last mammogram was performed 6 months ago. History: Patient is postmenopausal, has history of breast cancer at age 62, and has history of high-risk lesion on a previous biopsy at age 62. Family history of breast cancer in paternal aunt and breast cancer in paternal grandmother at age 80. Benign MG stereo VAD BX LT of the left breast, December 13, 2018. Malignant MG pre op loc each addl RT of the right breast, November 27, 2017. Malignant MG pre op needle loc RT of the right breast, November 27, 2017. High risk MG stereo VAD BX RT of the right breast, November 09, 2017. Malignant MG pre op needle loc LT of the left breast, November 23, 2015. Malignant MG stereo VAD BX LT of the left breast, November 01, 2015. Radiation therapy of the left breast, 2015. Benign excisional biopsy of the right breast, 1997. Physical Findings: Nurse did not find any significant physical abnormalities on exam. MG 3D Diag Mammo W/Cad EDDIE Bilateral CC and MLO view(s) were taken. Prior study comparison: June 16, 2019, left breast MG 3d diag mammo w/cad LT. November 21, 2018, bilateral MG 3d diag mammo w/cad EDDIE. The breast tissue is heterogeneously dense. This may lower the sensitivity of mammography. No suspicious abnormality. Post therapy changes bilaterally. No significant new findings when compared with previous films. These results were verbally communicated with the patient and result sheet given to the patient on 12/16/19. ASSESSMENT: Benign, BI-RAD 2 RECOMMENDATION: Follow-up diagnostic mammogram of both breasts in 1 year. (Close follow up recommended as close right margins noted at surgery)
== END | disposition home or self-care (01) ==
LOC: RADMAMWWP 09:21
PROVIDERS: ATTEND Surgery
DX: Z53.9 Procedure and treatment not carried out, unspecified reason (principal)

== ENCOUNTER → 2019-12-16 | Outpatient (CLI) | payer BC | END | disposition home or self-care (01) | LOC: LABWHC1 09:23 | PROVIDERS: ATTEND Internal Medicine Gastroenterology | DX: Z11.59 Encounter for screening for other viral diseases (principal) | CPT/HCPCS: 77062; 77066 ==

== ENCOUNTER → 2019-12-25 | Outpatient (CLI) | payer BC ==
[2019-12-25 12:52] VITALS: BP 136/87; PULSE 92; RESP 20; TEMP 98.6
--- NOTE | 2019-12-25 13:05 | P.PN ---
Subjective Progress Note Date: 12/25/19 Principal diagnosis: Bilateral breast stage 0 DCIS DCIS bilateral breast surveillance Kiesha is a 64-year-old white female status post left breast lumpectomy and Reanna treatment for DCIS approximately 4 years ago in 2015. She had no hormonal or chemotherapy. The antiestrogen treatment exacerbated hot flashes and she took it only for 1 week. She then had a mammographic abnormality showing area of concern in the right breast. She underwent a biopsy which resulted in an open b iopsy with needle localization. Pathology from open biopsy with [place] [address]. This revealed high-grade ductal carcinoma in situ closed approximating the posterior margin less than 1 mm from the margin. There is concern that this may represent multifocal disease and [place] [address]. Unfortunately the results of this were nondiagnostic secondary to motion artifact. The [place] [address] of the left breast. Pathology revealed benign breast disease with dense stromal fibrosis/scar, focal fat necrosis, and background fibrocystic changes. The patient has most recently had bilateral mammogram on 12-16-19. This was felt to be benign BIRADS 2. She has no complaints related to her breast. Family history: 1. Paternal aunt: Breast cancer 2. Paternal grandmother: Breast cancer 2. Maternal cousin: Breast cancer in her 40s 4. A second maternal cousin breast cancer in her 40s Hormonal history: Menarche: 16 Pregnancies:2, 2 children, first at 26, breast fed: no menopause: 54 BCP: 1 year hormones: none Past surgical history: 1. Cholecystectomy 2. Lipoma under her right arm 3. Left bunion 4. Left lumpectomy 5. Right breast biopsy Medical history: 1. reflux 2. asthma Social History: smoke: former stopped 2009 Alcohol: 1-2/beers on sunday drugs: none ROS: HEENT: wears glasses lungs: asthma heart: palpitations GI: none : none Musculoskeletal: Arthritis Neurologic: none Psychiatric: none Integument: Negative Objective - Vital Signs Vital signs: Vital Signs Temp 98.6 F 12/25/19 12:46 Pulse 92 12/25/19 12:46 Resp 20 12/25/19 12:46 BP 136/87 12/25/19 12:46 Pulse Ox 98 12/25/19 12:46 Intake & Output 12/24/19 12/25/19 12/25/19 18:59 06:59 18:59 Weight 85.275 kg - Exam BMI 28.6 - Constitutional General appearance: Present: average body habitus - EENT Eyes: Present: EOMI ENT: Present: hearing grossly normal - Neck Neck: Present: normal ROM - Respiratory Respiratory: bilateral: CTA - Cardiovascular Rhythm: regular Heart sounds: normal: S1, S2 - Gastrointestinal General gastrointestinal: Present: normal bowel sounds, soft - Integumentary Integumentary: Present: normal turgor - Musculoskeletal Musculoskeletal: Present: gait normal - Psychiatric Psychiatric: Present: A&O x's 3, appropriate affect, intact judgment & insight - Additional findings Additional findings: breast exam: BRA 42 G inspection: grade 3 ptosis, scar left breast status post lumpectomy Palpation: Right breast: Multi-positional exam fibrocystic changes, no dominant masses or nodules of concern Right axilla: No adenopathy of concern Left breast: Multiple positional exam fibrocystic changes, changes from prior lumpectomy scar tissue otherwise no dominant masses or nodules of concern Left axilla: No adenopathy of concern Assessment and Plan Assessment: Impression: 1. bilateral stage 0 breast cancer 2. reflux 3. asthma Plan: 1. bilateral mammogram in 1 eyar 2. appointment in 6 months CC: Dr. Wesly shepherd f15 minutes, > 50% of time in planning and counselling
== END | disposition home or self-care (01) ==
LOC: WWCWWP 12:34
PROVIDERS: ATTEND Surgery
DX: Z53.9 Procedure and treatment not carried out, unspecified reason (principal)

== ENCOUNTER → 2020-06-25 | Outpatient (CLI) | payer BC ==
--- NOTE | 2020-06-25 14:01 | P.PN ---
Subjective Progress Note Date: 06/25/20 Principal diagnosis: DCIS DCIS bilateral breast surveillance Kiesha is a 64-year-old white female status post left breast lumpectomy and Reanna treatment for DCIS approximately 4 years ago in 2016. She had no hormonal or chemotherapy. The antiestrogen treatment exacerbated hot flashes and she took it only for 1 week. She then had a mammographic abnormality showing area of concern in the right breast. She underwent a biopsy which resulted in an open biopsy with needle localization. Pathology from open biopsy with needle localization [place] [id number]. This revealed high-grade ductal carcinoma in situ closed approximating the posterior margin less than 1 mm from the margin. There is concern that this may represent multifocal disease and [place] [address]. Unfortunately the results of this were nondiagnostic secondary to motion artifact. The patient [place] [address] of the left breast. Pathology revealed benign breast disease with dense stromal fibrosis/scar, focal fat necrosis, and background fibrocystic changes. The patient has most recently had bilateral mammogram on 12-16-19. This was felt to be benign BIRADS 2. She has no complaints related to her breast. She has no changes in her breast she is concerned about. Family history: 1. Paternal aunt: Breast cancer 2. Paternal grandmother: Breast cancer 2. Maternal cousin: Breast cancer in her 40s 4. A second maternal cousin breast cancer in her 40s Hormonal history: Menarche: 16 Pregnancies:2, 2 children, first at 26, breast fed: no menopause: 54 BCP: 1 year hormones: none Past surgical history: 1. Cholecystectomy 2. Lipoma under her right arm 3. Left bunion 4. Left lumpectomy 5. Right breast biopsy 6. bladder sling Medical history: 1. reflux 2. asthma Social History: smoke: former stopped 2009 Alcohol: 1-2/beers on sunday drugs: none ROS: HEENT: wears glasses lungs: asthma heart: palpitations GI: none : none Musculoskeletal: Arthritis Neurologic: none Psychiatric: none Integument: Negative Objective - Vital Signs Vital signs: Vital Signs Temp 98.1 F 06/25/20 13:46 Pulse 79 06/25/20 13:46 Resp 18 06/25/20 13:46 BP 145/83 06/25/20 13:46 Pulse Ox 98 06/25/20 13:46 Intake & Output 06/24/20 06/25/20 06/25/20 18:59 06:59 18:59 Weight 86.183 kg - Exam BMI 28.9 - Constitutional General appearance: Present: average body habitus - EENT Eyes: Present: EOMI ENT: Present: hearing grossly normal - Neck Neck: Present: normal ROM - Respiratory Respiratory: bilateral: CTA - Cardiovascular Rhythm: regular Heart sounds: normal: S1, S2 - Gastrointestinal General gastrointestinal: Present: normal bowel sounds, soft - Integumentary Integumentary: Present: normal turgor - Musculoskeletal Musculoskeletal: Present: gait normal - Psychiatric Psychiatric: Present: A&O x's 3, appropriate affect - Additional findings Additional findings: breast exam: BRA: 42D inspection: grade 3 ptosis right breast, left bresat grade 2 ptosis palpation: right breast: Positional exam fibrocystic changes, no dominant masses or nodules of concern Right axilla: No adenopathy of concern Left breast: Scar from prior lumpectomy and radiation, otherwise no dominant masses or nodules of concern no lesions of concern to warrant intervention Left axilla: No adenopathy of concern There is asymmetry of the breast however the patient is not interested in any symmetry procedures Assessment and Plan Assessment: Impression: reflux asthma stage 0 breast cancer no recurrence Plan: 1. 6 months bilateral mammogram and appointment CC: Dr. Jarrell encounter 15 minutes > 50% of time in planning and counselling
[2020-06-25 15:48] VITALS: BP 145/83; PULSE 79; RESP 18; TEMP 98.1
== END | disposition home or self-care (01) ==
LOC: WWCWWP 13:33
PROVIDERS: ATTEND Surgery
DX: Z53.9 Procedure and treatment not carried out, unspecified reason (principal)

== ENCOUNTER → 2020-12-20 | Outpatient (CLI) | payer BC ==
--- NOTE | 2020-12-20 11:54 | MM ---
Reason for exam: additional evaluation requested from prior study. Last mammogram was performed 1 year ago. History: Patient is postmenopausal, has history of breast cancer at age 62, and has history of high-risk lesion on a previous biopsy at age 62. Family history of breast cancer in paternal aunt and breast cancer in paternal grandmother at age 80. Benign MG stereo VAD BX LT of the left breast, December 13, 2018. Malignant MG pre op loc each addl RT of the right breast, November 27, 2017. Malignant MG pre op needle loc RT of the right breast, November 27, 2017. High risk MG stereo VAD BX RT of the right breast, November 09, 2017. Malignant MG pre op needle loc LT of the left breast, November 23, 2015. Malignant MG stereo VAD BX LT of the left breast, November 01, 2015. Radiation therapy of the left breast, 2015. Benign excisional biopsy of the right breast, 1997. Physical Findings: Nurse did not find any significant physical abnormalities on exam. MG 3D Diag Mammo W/Cad EDDIE Bilateral CC and MLO view(s) were taken. Prior study comparison: December 16, 2019, bilateral MG 3d diag mammo w/cad EDDIE. June 16, 2019, left breast MG 3d diag mammo w/cad LT. May 22, 2018, right breast MG 3d diag mammo w/cad RT. October 18, 2017, bilateral MG diagnostic mammo w CAD EDDIE. October 09, 2016, bilateral MG 3d diag mammo w/cad EDDIE. The breast tissue is heterogeneously dense. This may lower the sensitivity of mammography. Approximately 4 clusters of calcifications laterally right breast along the resection margin are increasing. These are faint calcifications on magnification but suspicious. Some calcification at the 3 o'clock left breast likely early dystrophic calcification. No suspicious group on magnification views. 6 month follow up recommended. These results were verbally communicated with the patient and result sheet given to the patient on 12/20/20. ASSESSMENT: Suspicious, BI-RAD 4 RECOMMENDATION: Stereotactic core biopsy of the right breast. (possible 2 site) Called office with mammographic findings and has scheduled an appointment for the patient for 12/24/20 at 1:[address] Hurd. PRELIMINARY REPORT CALLED AND FAXED TO DR. HURD ON 12/20/20.
== END | disposition home or self-care (01) ==
LOC: RADMAMWWP 10:02
PROVIDERS: ATTEND Surgery
DX: R92.1 Mammographic calcification found on diagnostic imaging of breast (principal); Z78.0 Asymptomatic menopausal state; Z85.3 Personal history of malignant neoplasm of breast; Z80.3 Family history of malignant neoplasm of breast
CPT/HCPCS: 77062; 77066

== ENCOUNTER → 2020-12-24 | Outpatient (CLI) | payer BC ==
[2020-12-24 13:49] VITALS: BP 130/85; PULSE 85; RESP 16; TEMP 97.9
== END ==
LOC: WWCWWP 13:30
PROVIDERS: ATTEND Surgery
DX: Z53.9 Procedure and treatment not carried out, unspecified reason (principal)

== ENCOUNTER → 2021-03-10 | Day surgery (SDC) | payer BC ==
[2021-03-10 07:31] VITALS: RESP 16; TEMP 97.8
[2021-03-10 10:07] VITALS: BP 128/80; PULSE 71
--- NOTE | 2021-03-10 12:40 | P.PCN ---
Date of Procedure: 03/10/21 Preoperative Diagnosis: Microcalcifications of concern 2 areas right breast Postoperative Diagnosis: Same Procedure(s) Performed: Stereotactic core biopsy 2 areas right breast labeled as anterior and posterior lateral aspect of the right breast Anesthesia: local Surgeon: Melissa Hurd Pathology: other (Breast tissue anterior and posterior lateral aspect of the right breast) Disposition: same day Indications for Procedure: Microcalcifications of concern right breast lateral aspect anterior and posterior Operative Findings: Microcalcifications of concern contained in specimen radiograph Description of Procedure: Kiesha is a 65-year-old white female who on 6720 underwent a mammogram revealing right breast microcalcifications of concern in the lateral area both anterior and posterior position. 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 The patient was recommended to undergo a stereotactic core biopsy of these areas. Risks and benefits of the procedure were discussed with the patient. She understood and wished to proceed with stereotactic core biopsy. The radiographs were reviewed with radiology and the areas of calcification were identified which were to be sampled. The anterior area was sampled initially. A lateral to medial approach was utilized. The lesion was targeted. The breast was prepped using Betadine. 20 mL of 1% lidocaine were used to anesthetize the area of concern. A vacuum assisted core rotating biopsy needle was driven to the correct coordinates. A prefire film was obtained and the needle was in the correct location. The needle was fired and a postoperative film revealed the needle to be in the correct location. 13 core samples were obtained. Radiograph of the samples revealed the calcifications of concern to be present. A secure marked top Marker was placed. The posterior area was subsequently approached. A lateral to medial approach was utilized. 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 The lesion was targeted. The breast was prepped using Betadine. 20 mL of 1% lidocaine were used to anesthetize the area of concern. The needle was driven to the correct coordinates and fired. A prefire film was not obtained. Post-fire film was obtained and the needle was noted to be in the correct location. 12 core biopsy specimens were obtained. Radiograph of the specimen revealed the calcifications of concern had been removed. A tri-Marker clip was placed. Radiograph post procedure revealed that the clips were in the correct location. The patient tolerated the procedure in stable condition. The specimens were sent to pathology. The patient will follow-up with Dr. Kingsley next week.
--- NOTE | 2021-03-10 15:29 | MM ---
EXAMINATION TYPE: MG stereo VAD BX RT, MG stereo VAD BX addl RT DATE OF EXAM: 03/10/2021 COMPARISON: 12/20/2020 CLINICAL HISTORY: 65-year-old female Z85.3, personal history of right breast DCIS status post excision. Additional history of lumpectomy left breast. TECHNIQUE: Stereotactic guided core biopsy of the right breast 2 sites. FINDINGS: The procedure of stereotactic guided core biopsy was explained to the patient. Benefits, alternatives, and risks were discussed. An informed consent was then obtained. The exam is reviewed. Redemonstrated excisional changes with surgical clips in the 8 to 9:00 position of the right breast. The microcalcifications spanning approximately 7 cm are noted along the lateral margin of the surgical clips. Anterior and posterior calcifications are targeted. The shortness pathway for biopsy was chosen. Shortness pathway was a lateral approach. I performed the localization, then surgeon, Dr. Sancho Paige performed the remainder of the procedure. A vacuum assisted biopsy gun was used to obtain multiple core samples. The patient tolerated the procedure well without any immediate complication. The patient was kept in the radiology department for short stay after the procedure and then discharged home in stable condition. Targeted calcifications are identified in specimen mammogram. Post biopsy mammogram shows the clip to appear in satisfactory position relative to the targeted area of concern on the preprocedure images. There is a distance of approximately 5 cm between the clips and the calcifications span approximately 7 cm. Please refer to the saved postbiopsy mammogram images on [facility]. IMPRESSION: SUCCESSFUL, UNCOMPLICATED STEREOTACTIC GUIDED CORE BIOPSY OF ANTERIOR AND POSTERIOR CALCIFICATIONS ALONG THE LATERAL MARGIN OF A PRIOR EXCISION FOR DCIS, 8 TO 9:00 POSITION RIGHT BREAST. FULL PATHOLOGY RESULTS TO FOLLOW. Pathology Results: Malignant A. 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 See Surgical Pathology Cancer Case Summary and Comment. B. RIGHT BREAST, SITE B POSTERIOR, STEREOATACTIC CORE BIOPSY: High grade ductal carcinoma in situ (DCIS) with associated calcifications. See Surgical Pathology Cancer Case Summary and Comment. Recommendation Surgical consult of the right breast. ELKIN
== END ==
LOC: RADMAMWWP 07:07
PROVIDERS: ATTEND Surgery
DX: C50.511 Malignant neoplasm of lower-outer quadrant of right female breast (principal)
CPT/HCPCS: 19081; 19082; A4648; J2001; 88305; 88341; 88342

== ENCOUNTER → 2021-03-18 | Outpatient (CLI) | payer BC ==
[2021-03-18 11:43] VITALS: BP 117/81; PULSE 79; RESP 12; TEMP 98.2
--- NOTE | 2021-03-18 12:18 | P.PN ---
Subjective Progress Note Date: 03/18/21 Principal diagnosis: DCIS right breast DCIS bilateral breast surveillance Kiesha is a 65-year-old white female status post left breast lumpectomy and Reanna treatment for DCIS approximately 4 years ago in 2016. She had no hormonal or chemotherapy. The antiestrogen treatment exacerbated hot flashes and she took it only for 1 week. She then had a mammographic abnormality showing area of concern in the right breast. She underwent a biopsy which resulted in an open biopsy with needle localization. Pathology from open biopsy with needle localization was [place] [address]001. This revealed high-grade ductal carcinoma in situ closed approximating the posterior margin less than 1 mm from the margin. There is concern that this may represent multifocal disease and [place] [address]. Unfortunately the results of this were nondiagnostic secondary to motion artifact. The [place] [address] of the left breast. Pathology revealed benign breast disease with dense stromal fibrosis/scar, focal fat necrosis, and background fibrocystic changes. The patient had a bilateral mammogram on 12-16-19. This was felt to be benign BIRADS 2. She has no complaints related to her breast. She has no changes in her breast she is concerned about. She had a bilateral mammogram performed on 6720. This revealed for clusters of calcifications laterally in the right breast which were increasing in number. These were felt to be faint but suspicious. Calcifications at the 3 o'clock position of the left breast were felt to be dystrophic. The patient is recommended to undergo stereotactic core biopsy of the right breast at 2 locations. 03-18-21 Alanna underwent a right breast stereotactic core biopsy anterior which revealed high-grade DCIS with features focally suggestive of lymphovascular invasion, and site B posterior high-grade DCIS. The patient tolerated the procedure without difficulty. Family history: 1. Paternal aunt: Breast cancer 2. Paternal grandmother: Breast cancer 2. Maternal cousin: Breast cancer in her 40s 4. A second maternal cousin breast cancer in her 40s Hormonal history: Menarche: 16 Pregnancies:2, 2 children, first at 26, breast fed: no menopause: 54 BCP: 1 year hormones: none Past surgical history: 1. Cholecystectomy 2. Lipoma under her right arm 3. Left bunion 4. Left lumpectomy 5. Right breast biopsy 6. bladder sling Medical history: 1. reflux 2. asthma 3. COPD Social History: smoke: former stopped 2009 Alcohol: 1-2/beers on Sunday drugs: none ROS: HEENT: wears glasses lungs: asthma/COPD heart: palpitations GI: none : none Musculoskeletal: Arthritis Neurologic: none Psychiatric: none Integument: Negative Objective - Vital Signs Vital signs: Vital Signs Temp 98.2 F 03/18/21 11:31 Pulse 79 03/18/21 11:31 Resp 12 03/18/21 11:31 BP 117/81 03/18/21 11:31 Pulse Ox 98 03/18/21 11:31 Intake & Output 03/17/21 03/18/21 03/18/21 18:59 06:59 18:59 Weight 84.822 kg - Constitutional General appearance: Present: average body habitus - Neck Neck: Present: normal ROM - Respiratory Respiratory: bilateral: CTA - Cardiovascular Rhythm: regular Heart sounds: normal: S1, S2 - Integumentary Integumentary: Present: normal turgor - Musculoskeletal Musculoskeletal: Present: gait normal - Psychiatric Psychiatric: Present: A&O x's 3, appropriate affect, intact judgment & insight - Additional findings Additional findings: Biopsy site right breast mild ecchymosis, no evidence of infection or hematoma Assessment and Plan Assessment: Impression: 1. reflux 2. asthma 3. COPD 4. DCIS two sites right breast, high grade Plan: 1. Right breast needle localization of both 2 areas of DCIS and lumpectomy, sentinel node injection, sentinel node biopsy, possible axillary node dissection, possible optical plastic tissue transfer 2. present cast at tumor board We have discussed doing this via a reduction mammoplasty incision or mastopexy incision and the patient is not interested. The patient is a given the option of a mastectomy plus or minus immediate reconstruction and she would prefer to have a lumpectomy. Risk and benefits of the procedure include but are not limited to bleeding, infection, reaction to the anesthetic. She understands that the margins were to be positive it is possible we would have to go back and remove additional tiss ue. She also understands that there may not be invasion but secondary to the possibility she would like to have the sentinel node biopsy done at this time. CC: Dr. Jarrell
== END ==
LOC: WWCWWP 11:14
PROVIDERS: ATTEND Surgery
DX: D05.11 Intraductal carcinoma in situ of right breast (principal); J44.9 Chronic obstructive pulmonary disease, unspecified; K21.9 Gastro-esophageal reflux disease without esophagitis; Z87.891 Personal history of nicotine dependence; Z88.8 Allergy status to other drugs, medicaments and biological substances; Z91.040 Latex allergy status; Z88.0 Allergy status to penicillin

== ENCOUNTER → 2021-05-19 | Outpatient (CLI) | payer BC ==
[2021-05-19 16:31] VITALS: BP 146/89; PULSE 76; RESP 18; TEMP 97.9
--- NOTE | 2021-05-19 16:47 | P.PN ---
Subjective Progress Note Date: 05/19/21 DCIS right breast DCIS bilateral breast surveillance Kiesha is a 65-year-old white female status post left breast lumpectomy and Reanna treatment for DCIS approximately 4 years ago in 2016. She had no hormonal or chemotherapy. The antiestrogen treatment exacerbated hot flashes and she took it only for 1 week. She then had a mammographic abnormality showing area of concern in the right breast. She underwent a biopsy which resulted in an open biopsy with needle localization. Pathology from open biopsy with needle localization was [place] [address]8053. This revealed high-grade ductal carcinoma in situ closed approximating the posterior margin less than 1 mm from the margin. There is concern that this may represent multifocal disease and [place] [address]. Unfortunately the results of this were nondiagnostic secondary to motion artifact. The [place] [address] of the left breast. Pathology revealed benign breast disease with dense stromal fibrosis/scar, focal fat necrosis, and background fibrocystic changes. The patient had a bilateral mammogram on 12-16-19. This was felt to be benign BIRADS 2. She has no complaints related to her breast. She had no changes in her breast she is concerned about. She had a bilateral mammogram performed on 6720. This revealed for clusters of calcifications laterally in the right breast which were increasing in number. These were felt to be faint but suspicious. Calcifications at the 3 o'clock position of the left breast were felt to be dystrophic. The patient is recommended to undergo stereotactic core biopsy of the right breast at 2 locations. 03-18-21 Kiesha underwent a right breast stereotactic core biopsy anterior which revealed high-grade DCIS with features focally suggestive of lymphovascular invasion, and site B posterior high-grade DCIS. The patient tolerated the procedure without difficulty. 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 This mutation causes a 3-10% risk of colon cancer were as population risk is 2-5%. No other abnormal genes were noted. Family history: 1. Paternal aunt: Breast cancer 2. Paternal grandmother: Breast cancer 2. Maternal cousin: Breast cancer in her 40s 4. A second maternal cousin breast cancer in her 40s Hormonal history: Menarche: 16 Pregnancies:2, 2 children, first at 26, breast fed: no menopause: 54 BCP: 1 year hormones: none Past surgical history: 1. Cholecystectomy 2. Lipoma under her right arm 3. Left bunion 4. Left lumpectomy 5. Right breast biopsy 6. bladder sling Medical history: 1. reflux 2. asthma 3. COPD Social History: smoke: former stopped 2009 Alcohol: 1-2/beers on Sunday drugs: none ROS: HEENT: wears glasses lungs: asthma/COPD heart: palpitations GI: none : none Musculoskeletal: Arthritis Neurologic: none Psychiatric: none Integument: Negative Objective - Vital Signs Vital signs: Intake & Output 05/18/21 05/19/21 05/19/21 18:59 06:59 18:59 Weight 83.915 kg - Constitutional General appearance: Present: cooperative - EENT Eyes: Present: EOMI ENT: Present: hearing grossly normal - Neck Neck: Present: normal ROM - Respiratory Respiratory: bilateral: CTA - Cardiovascular Heart sounds: normal: S1, S2 - Integumentary Integumentary: Present: normal turgor - Musculoskeletal Musculoskeletal: Present: gait normal - Psychiatric Psychiatric: Present: A&O x's 3, appropriate affect, intact judgment & insight - Additional findings Additional findings: Breast Exam: BRA: 42D inspection: bilateral grade 3 ptosis, right breast larger than left breast Palpation: Right breast: Multi-positional exam fibrocystic changes, no dominant masses or nodules of concern Right axilla: No adenopathy of concern Left breast: Multi-positional exam no dominant masses or nodules of concern; postop changes left breast from prior lumpectomy and Reanna radiation therapy Left axilla: No adenopathy of concern Assessment and Plan Assessment: Impression: 1. reflux 2. asthma 3. COPD 4. DCIS two sites right breast, high grade 5. Patient in 2018 Area of DCIS remove the right breast with close posterior margin she does not want this site to be reexcised Plan: 1. Right breast needle localization of both 2 most recent areas of DCIS right breast and lumpectomy, sentinel node injection, sentinel node biopsy, possible axillary node dissection, possible onc- plastic tissue transfer 2. case presented at tumor board We have discussed doing this via a reduction mammoplasty incision or mastopexy incision and the patient is not interested. The patient is given the option of a mastectomy plus or minus immediate reconstruction and she would prefer to have a lumpectomy. Risk and benefits of the procedure include but are not limited to bleeding, infection, reaction to the anesthetic. She understands that if the margins were to be positive it is possible we would have to go back and remove additional tissue. She also understands that there may not be invasion but secondary to the possibility she would like to have the sentinel node biopsy done at this time. He also understands that if the clips were not to be retrieved its possible that we would recommend going back for additional surgery. Risks of sentinal node biopsy include but are not limited to bleeding, infection, reaction to the anesthetic. She understands she could have some decreased sensation to the inner arm as well as the possibility of injury to the thoracodorsal or long thoracic nerves. Additionally there is an increased risk of lymphedema. CC: Dr. Jarrell Additional CC's: Robinson Jarrell
== END ==
LOC: WWCWWP 16:20
PROVIDERS: ATTEND Surgery
DX: D05.11 Intraductal carcinoma in situ of right breast (principal); K21.9 Gastro-esophageal reflux disease without esophagitis; J44.9 Chronic obstructive pulmonary disease, unspecified; Z87.891 Personal history of nicotine dependence; Z88.8 Allergy status to other drugs, medicaments and biological substances; Z91.040 Latex allergy status; Z88.0 Allergy status to penicillin

== ENCOUNTER 2021-05-24 10:09 | Day surgery (SDC) | payer BC ==
[~2021-05-24 10:09] MED LIST changes: +HEPARIN SODIUM,PORCINE/PF 5,000 UNIT/0.5 ML SYRINGE SQ PRN; +HYDROmorphone 0.5 MG/0.5 ML SYRINGE IVP PRN; +LACTATED RINGERS 1,000 ML IV SCH; +MIDAZOLAM 2 MG/2 ML VIAL IV PRN; +ONDANSETRON 4 MG/2 ML VIAL IVP ONE
[2021-05-24] MEDS ORDERED: ALPRAZolam 0.25 MG TAB ONE (10:46)
[2021-05-24] MEDS ORDERED: LIDOCAINE 1% (10MG/ML) FOR IV START INTRADERMA ONE (10:50)
[2021-05-24] MEDS ORDERED: LIDOCAINE (PF) 10 MG/ML 5ML AMP SQ ONE (11:44)
--- NOTE | 2021-05-24 12:28 | P.NAPBC ---
NAPBC Queries - NAPBC Queries Was patient's case review presented at [facility] tumor board? If no, comment.: Yes Was patient's pathology reviewed at [facility]? If no, comment.: Yes Was breast conservation surgery offered? If no, comment.: Yes Was sentinel node biopsy offered? If no, comment.: Yes Was diagnosis confirmed by percutaneous core biopsy? If no, comment.: Yes Is patient mastectomy patient?: No Was a preop referral to reconstructive surgeon offered?: No Clinical Stage: stage 0
[2021-05-24] MEDS ORDERED: ROCURONIUM 10 MG/ML (5 ML VIAL) IV ONE (13:10)
[2021-05-24] MEDS ORDERED: MIDAZOLAM 2 MG/2 ML VIAL ONE (13:10)
[2021-05-24] MEDS ORDERED: diphenhydrAMINE 50 MG/ML 1 ML VIAL ONE (13:10)
[2021-05-24] MEDS ORDERED: fentaNYL (PF) 50 MCG/ML 2 ML AMP ONE (13:10)
[2021-05-24] MEDS ORDERED: PROPOFOL 10 MG/ML 20 ML VIAL IV ONE (13:10)
[2021-05-24] MEDS ORDERED: NEOSTIGMINE 1 MG/ML 10 ML VIAL ONE (13:10)
[2021-05-24] MEDS ORDERED: SUCCINYLCHOLINE CHLORIDE 100 MG/5 ML SYR IV ONE (13:10)
[2021-05-24] MEDS ORDERED: GLYCOPYRROLATE 0.2 MG/ML 2 ML VIAL ONE (13:10)
[2021-05-24] MEDS ORDERED: LIDOCAINE 1% INJ 10MG/ML (20 ML MDV) ONE (13:10)
[2021-05-24] MEDS ORDERED: METHYLENE BLUE 50 MG/10 ML AMPUL MISCELLANE ONE (13:48)
[2021-05-24] MEDS ORDERED: LIDOCAINE 1% INJ 10MG/ML (20 ML MDV) SQ ONE ×4 (14:03→15:41)
--- NOTE | 2021-05-24 14:10 | NM ---
EXAMINATION TYPE: NM sentinel node injection DATE OF EXAM: 05/24/2021 COMPARISON: NONE HISTORY: Right-sided breast cancer. TECHNIQUE AND FINDINGS: The procedure of sentinel lymph node injection was explained to the patient. The benefits, alternatives, and risks were discussed. An informed consent was then obtained. Overlying skin is cleaned with sterile alcohol. Following this, 479 uCi Tc99m Tilmanocept was inject ed in the upper outer aspect of the right nipple intradermally. The patient tolerated the procedure well without any immediate complication. The patient was kept in the radiology department for short stay after the procedure and then taken to surgery for surgical p rocedure what is presumed intraoperative gamma probe will be used for sentinel lymph node detection. IMPRESSION: Right breast radiotracer injection for sentinel node localization as above.
--- NOTE | 2021-05-24 15:41 | MM ---
EXAMINATION TYPE: MG pre op needle loc RT, MG surgical specimen RT DATE OF EXAM: 05/24/2021 COMPARISON: NONE CLINICAL HISTORY: High-grade DCIS on stereotactic guided core biopsy 2 sites. History of ADH on biops y 2017 right breast with subsequent surgical excision showing high-grade DCIS. History of high-grade DCIS on biopsy left breast 2015 TECHNIQUE: Needle localization with wire placement and surgical excision of area of concern in the ri ght breast. FINDINGS: The procedure of needle localization with wire placement and than surgical excision was exp lained to the patient. Benefits, alternatives, and risks were discussed. An informed consent was th en obtained. The shortest pathway for procedure was chosen. Shortest pathway was lateral approach. The overlying skin was prepped and draped in usual sterile fashion. Lidocaine was used as anesthetic into the skin and subcutaneous tissue up to the level of area of concern. A 5 cm needle was used 4 anterior clip a nd 7 cm needle for the most posterior clip. It both were placed via lateral under mammographic norris nce. Subsequent 90 degrees mammogram show the needle to be in satisfactory position relative to the targeted area. At this point, wires were placed and the needles were withdrawn. The wires was fixed to patient's skin. Images were marked for surgeon. Group of calcifications in the outer aspect of right breast and roughly 5 cm segment laterally just lateral to the biopsy clips from prior excision. Calcifications extend posterior to the posterior clip and wire roughly 1.0 cm. This is reviewed with surgeon prior to surgery. The patient tolerated the procedure well without any immediate complication. The patient was kept in the radiology department for short stay after the procedure and then taken to surgery for surgical e xcision. Targeted biopsy clips and wires are identified in specimen mammogram. The patient was kept in hospital for short stay after the procedure and then discharged home in stable condition. IMPRESSION: Successful, uncomplicated needle localization with bracketed wire placement and surgical excision of suspicious group of calcifications between 2 biopsy clips in the right breast, full patho logy results to follow.
--- NOTE | 2021-05-24 15:48 | P.OP ---
Date of Procedure: 05/24/21 Preoperative Diagnosis: Ductal carcinoma in situ right breast, 2 sites Postoperative Diagnosis: Same Procedure(s) Performed: Lymphatic mapping, sentinel node biopsy, lumpectomy, onco-plastic tissue transfer total tissue mobilized 94 cm Anesthesia: ROCÍO Surgeon: Melissa Hurd Estimated Blood Loss (ml): 30 IV fluids (ml): 600 Pathology: other (bresat tissue and sentinal node) Condition: stable Disposition: same day Indications for Procedure: right breast DCIS Operative Findings: fibrofatty breast tissue, and dense tissue at prior lumpectomy site Description of Procedure: Kiesha is a 65 year old white female diagnosed with ductal carcinoma in situ of the right breast. She is scheduled for needle local and excisional lumpectomy as well as sentinel node biopsy. The patient was seen first in the radiology department where needle localization of 2 areas of concern in the right breast. Breast were performed. The patient then had injection for sentinel node. She was brought to the operative suite. After induction of anesthesia the neoprobe was utilized to evaluate radioactivity in the axilla. The radioactivity in the axilla was minimal. Therefore 8 mL of 1/4 strength methylene blue were injected into the periareolar area. The breast was massaged. Following this the right breast and axilla were prepped and draped in a sterile fashion. An incision was made in the axillary region. Using the neoprobe area of greatest radioactivity which was minimal was identified. No blue nodes were identified. Dissection was carried down into this tissue and a small lymph node was identified. This was soft and was resected. The 10 second count on the lymph node was 439, the background count was 19. After assured that hemostasis was attained the axilla was evaluated evidence of any additional radioactive nodes were identified. No other palpable lymph nodes were identified. It was well irrigated. The deep tissues were closed using 3-0 Vicryl suture. The skin was closed using 4-0 Monocryl. The area of the breast was then approached. An incision was made between the 2 needles. Dissection was performed in the plane between the breast tissue and the subcutaneous tissue. Dissection was performed around both needles. Dissection was performed to the tip of the needles and the surrounding tissue was excised. Several years ago she had a prior lumpectomy for DCIS in this vicinity. The specimen removed was 7 cm x 10 cm. This was painted for orientation. Following this radiograph revealed that the 2 clips of concern were identified. A superior pillar was formed which was 6 cm x 2 cm this was mobilized and additionally an inferior pillar which was 6 cm x 2 cm was mobilized. The pillars were brought together using 3-0 Vicryl suture. Prior to this the wound was irrigated and Surgicel in powder form was placed. Titanium clips were placed to estrella the cavity. The pillars were brought together using 3-0 Vicryl suture. Following this the subcutaneous tissue was closed using 3-0 Vicryl suture. The skin was closed using 4-0 Monocryl. The patient tolerated the procedure in stable condition. Total tissue mobilized was 94 cm.
--- NOTE | 2021-05-24 15:50 | P.DS ---
Providers Attending physician: Melissa Hurd Primary care physician: Robinson Jarrell Plan - Discharge Summary Discharge Rx Participant: No New Discharge Prescriptions: No Action Albuterol Sulfate [Ventolin HFA] 1 - 2 puff INHALATION DIRECTED PRN PRN Reason: Shortness Of Breath Loratadine [Claritin] 10 mg PO DAILY Omeprazole [PriLOSEC] 20 mg PO HS PRN PRN Reason: GERD Acetaminophen [Tylenol Extra Strength] 500 mg PO DAILY PRN PRN Reason: Pain Fluticasone Propion/Salmeterol [Wixela 500-50 Inhub] 1 inhalation PO BID Albuterol Nebulizer 1 dose INHALATION DIRECTED PRN PRN Reason: Shortness Of Breath Omalizumab [Xolair] 0 mg SQ QMONTHLY Discharge Medication List Albuterol Sulfate [Ventolin HFA] 1 - 2 puff INHALATION DIRECTED PRN 11/02/14 [History] Loratadine [Claritin] 10 mg PO DAILY 11/02/14 [History] Omeprazole [PriLOSEC] 20 mg PO HS PRN 11/02/14 [History] Acetaminophen [Tylenol Extra Strength] 500 mg PO DAILY PRN 11/27/17 [History] Albuterol Nebulizer 1 dose INHALATION DIRECTED PRN 12/18/19 [History] Fluticasone Propion/Salmeterol [Wixela 500-50 Inhub] 1 inhalation PO BID 12/18/19 [History] Omalizumab [Xolair] 0 mg SQ QMONTHLY 06/25/20 [History] Follow up Appointment(s)/Referral(s): Melissa Hurd MD [STAFF PHYSICIAN] - 06/02/21 4:00 pm Activity/Diet/Wound Care/Special Instructions: do not drive today or for 24 hours after DC or if taking narcotic pain medicine wear bra at all times may shower after 48 hours Discharge Disposition: HOME SELF-CARE
[2021-05-24 16:14] VITALS: TEMP 97
[2021-05-24 16:58] VITALS: RESP 16
[2021-05-24 17:05] VITALS: PULSE 66
[2021-05-24 17:15] VITALS: BP 121/79
== END 2021-05-24 17:29 | disposition home or self-care (01) ==
LOC: OR 10:09
PROVIDERS: ATTEND Surgery
DX: D05.11 Intraductal carcinoma in situ of right breast (principal); E78.5 Hyperlipidemia, unspecified; J44.9 Chronic obstructive pulmonary disease, unspecified; M19.90 Unspecified osteoarthritis, unspecified site; K21.9 Gastro-esophageal reflux disease without esophagitis; Z87.891 Personal history of nicotine dependence; Z90.49 Acquired absence of other specified parts of digestive tract; Z98.890 Other specified postprocedural states; Z80.3 Family history of malignant neoplasm of breast; Z79.899 Other long term (current) drug therapy; Z88.8 Allergy status to other drugs, medicaments and biological substances; Z91.02 Food additives allergy status; Z91.040 Latex allergy status; Z91.011 Allergy to milk products
CPT/HCPCS: 19301; 38525; 14301; 14302 ×2; 76098; 19281; 38792; C1819 ×2; A9520; J2250; J1200; J2710; J2405; J2001 ×2; J3010; J0330; J2704; Q9968; J1170; J1644; 88307; 88341; 88342

== ENCOUNTER → 2021-06-02 | Outpatient (CLI) | payer BC ==
[2021-06-02 16:19] VITALS: BP 136/86; PULSE 83; RESP 16; TEMP 98.4
--- NOTE | 2021-06-02 16:41 | P.PN ---
Subjective Progress Note Date: 06/02/21 Principal diagnosis: high grade DCIS right breast Kiesha is a 65-year-old white female status post right breast lumpectomy and sentinel lobe biopsy [place] [id number]. Pathology revealed multifocal high-grade DCIS with margins negative, DCIS measured 1 mm from the inferior margin and 1 mm from the superior margin. Additionally sentinel lymph node was removed which was benign. The patient has been given the option of hormone therapy and radiation therapy. The patient has declined both. She has agreed to close surveillance. Objective - Vital Signs Vital signs: Vital Signs Temp 98.4 F 06/02/21 16:16 Pulse 83 06/02/21 16:16 Resp 16 06/02/21 16:16 BP 136/86 06/02/21 16:16 Pulse Ox Intake & Output 06/01/21 06/02/21 06/02/21 18:59 06:59 18:59 Weight 83.915 kg - Constitutional General appearance: Present: cooperative - EENT Eyes: Present: EOMI ENT: Present: hearing grossly normal - Neck Neck: Present: normal ROM - Respiratory Respiratory: bilateral: CTA - Cardiovascular Rhythm: regular Heart sounds: normal: S1, S2 - Gastrointestinal General gastrointestinal: Present: soft - Integumentary Integumentary: Present: normal turgor - Musculoskeletal Musculoskeletal: Present: gait normal - Psychiatric Psychiatric: Present: A&O x's 3, appropriate affect, intact judgment & insight - Additional findings Additional findings: Incision under the right arm is clean and dry there is a stitch which is extruding and this was clipped Incision breasts clean and dry patient with the postop changes but no evidence of infection resolving ecchymosis Assessment and Plan Assessment: Impression: Right breast sentinel node biopsy/lumpectomy for DCIS Plan: Patient declined radiation oncology and medical oncology appointments close surveillance follow-up in 4 months Cc: Dr. Jarrell
== END ==
LOC: WWCWWP 15:56
PROVIDERS: ATTEND Surgery
DX: Z08 Encounter for follow-up examination after completed treatment for malignant neoplasm (principal); Z98.890 Other specified postprocedural states; Z88.8 Allergy status to other drugs, medicaments and biological substances; Z91.040 Latex allergy status; Z88.0 Allergy status to penicillin; Z87.891 Personal history of nicotine dependence; Z85.3 Personal history of malignant neoplasm of breast

== ENCOUNTER → 2021-10-27 | Outpatient (CLI) | payer BC ==
[2021-10-27 15:10] VITALS: BP 158/90; PULSE 89; RESP 18; TEMP 98.1
--- NOTE | 2021-10-27 15:29 | P.PN ---
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 She had no hormonal or chemotherapy. The antiestrogen treatment exacerbated hot flashes and she took it only for 1 week. She then had a mammographic abnormality showing area of concern in the right breast. She underwent a biopsy which resulted in an open biopsy with needle localization. Pathology from [place] biopsy [place] [address]. This revealed high-grade ductal carcinoma in situ closed approximating the posterior margin less than 1 mm from the margin. There is concern that this may represent multifocal disease and [place] [address]. Unfortunately the results of this were nondiagnostic secondary to motion artifact. The [place] [address] of the left breast. Pathology revealed benign breast disease with dense stromal fibrosis/scar, focal fat necrosis, and background fibrocystic changes. The patient had a bilateral mammogram on 12-16-19. This was felt to be benign BIRADS 2. She has no complaints related to her breast. She had no changes in her breast she is concerned about. She had a bilateral mammogram performed on 6720. This revealed for clusters of calcifications laterally in the right breast which were increasing in number. These were felt to be faint but suspicious. Calcifications at the 3 o'clock position of the left breast were felt to be dystrophic. The patient is recommended to undergo stereotactic core biopsy of the right breast at 2 locations. 03-18-21 Kiesha underwent a right breast stereotactic core biopsy anterior which revealed high-grade DCIS ER+, and NE+ with features focally suggestive of lymphovascular invasion, and site B posterior high-grade DCIS. The patient tolerated the procedure without difficulty. 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 This mutation causes a 3-10% risk of colon cancer were as population risk is 2-5%. No other abnormal genes were noted. On she had a right breast lumpectomy and sentinel node biopsy. Pathology revealed multifocal DCIS focally 1 mm from the inferior and superior margins. She declined radiation therapy Patient's last bilateral mammogram was 6720 this was suspicious BIRADS for which resulted in the stereotactic core biopsy of the 2 sites in the right breast followed by lumpectomy of these areas. She had a brain MRI and 220 822 due to migraine no evidence of metastatic disease Bone scan 3222 mild uptake in C-spine and T8 nonspecific Note form 3-- . Medical oncology reviewed, they did recommend an MRI secondary to the bone scan findings which the patient declined. Family history: 1. Paternal aunt: Breast cancer 2. Paternal grandmother: Breast cancer 2. Maternal cousin: Breast cancer in her 40s 4. A second maternal cousin breast cancer in her 40s Hormonal history: Menarche: 16 Pregnancies:2, 2 children, first at 26, breast fed: no menopause: 54 BCP: 1 year hormones: none Past surgical history: 1. Cholecystectomy 2. Lipoma under her right arm 3. Left bunion 4. Left lumpectomy 5. Right breast biopsy 6. bladder sling 7. Right breast lumpectomy Medical history: 1. reflux 2. asthma 3. COPD Social History: smoke: former stopped 2009 Alcohol: 1-2/beers on Sunday drugs: none ROS: HEENT: wears glasses lungs: asthma/COPD heart: palpitations GI: none : none Musculoskeletal: Arthritis Neurologic: none Psychiatric: none Integument: Negative Objective - Vital Signs Vital signs: Vital Signs Temp 98.1 F 10/27/21 15:06 Pulse 89 10/27/21 15:06 Resp 18 10/27/21 15:06 BP 158/90 10/27/21 15:06 Pulse Ox 96 10/27/21 15:06 Intake & Output 10/26/21 10/27/21 10/27/21 18:59 06:59 18:59 Weight 82.781 kg - Exam BMI: 28.2 - Constitutional General appearance: Present: cooperative - EENT Eyes: Present: EOMI ENT: Present: hearing grossly normal - Neck Neck: Present: normal ROM - Respiratory Respiratory: bilateral: CTA - Cardiovascular Rhythm: regular Heart sounds: normal: S1, S2 - Gastrointestinal General gastrointestinal: Present: soft - Integumentary Integumentary: Present: normal turgor - Musculoskeletal Musculoskeletal: Present: gait normal - Psychiatric Psychiatric: Present: A&O x's 3, appropriate affect, intact judgment & insight - Additional findings Additional findings: Breast examination: Bra: 42D inspection: bilateral grade 3 ptosis and post op changes palpation: right breast: Multiple positional exam post op changes no discrete dominant masses of concern Right axilla: No adenopathy of concern Left breast: Multiple positional exam postop changes no dominant masses or nodules of concern Left axilla: No adenopathy of concern Assessment and Plan Assessment: Impression: Lateral stage 0 breast cancer Bilateral postop changes/left breast had Reanna radiation right breast no radiation treatment Patient recently given a prescription for an anti-hormone medication from Dr. Alex which she has not started yet nothing in the breast which would warrent a biopsy at this time Plan: Due for bilateral mammogram in December Recommend starting the antihormone medication Patient had a bone scan which showed some nonspecific uptake in the cervical spine patient given the option of an MRI which she has declined if she is asymptomatic Follow-up after bilateral mammogram CC: Dr. Jarrell, Dr. Alex
== END ==
LOC: WWCWWP 14:57
PROVIDERS: ATTEND Surgery
DX: Z08 Encounter for follow-up examination after completed treatment for malignant neoplasm (principal); Z85.3 Personal history of malignant neoplasm of breast; J44.9 Chronic obstructive pulmonary disease, unspecified; Z91.040 Latex allergy status; Z88.0 Allergy status to penicillin; Z88.8 Allergy status to other drugs, medicaments and biological substances; Z91.02 Food additives allergy status; Z87.891 Personal history of nicotine dependence

== ENCOUNTER → 2021-10-27 | Outpatient (CLI) | payer BC ==
--- NOTE | 2021-10-28 05:58 | BD ---
EXAMINATION TYPE: Axial Bone Density DATE OF EXAM: 10/27/2021 COMPARISON: 2016 CLINICAL HISTORY: 66 years year old Female. ICD-10 CODE: J53607 Height: 5 FT 7 1/2 IN Weight: 182 FRAX RISK QUESTIONS: Alcohol (3 or more units per day): NO Family History (Parent hip fracture): NO Glucocorticoids (More than 3mos): INHALER FOR ASTHMA 1-2 YEARS (Ex: prednisone, prednisolone, methylprednisolone, dexamethasone, and hydrocortisone). History of Fracture in Adulthood: NO Secondary Osteoporosis: 1. Type 1 Diabetes: NO 2. Hyperthyroidism: NO 3. Menopause before 45: NO 4. Malnutrition: NO 5. Chronic liver disease: NO Rheumatoid Arthritis: NO Current Tobacco Use: FORMER RISK FACTORS HISTORY OF: Surgery to Spine/Hip(right/left)/Wrist (right/left): NO Family History of Osteoporosis: NO Active: YES Diet low in dairy products/other sources of calcium: NO Postmenopausal woman: YES Take estrogen and/or progesterone medications: NO Lost more than 2 inches in height since high school: NO Frequent falls: NO Poor Health: FAIR Hyperparathyroidism: NO Adrenal Insufficiency: NO MEDICATIONS: Prednisone or other steroids: INHALERS How Lon-2 YEARS Additional Medications: INHALERS, Additional History: COPD , ASTHMA BREAST CANCER 2020 RADIATION ONLY EXAM MEASUREMENTS: Bone mineral densitometry was performed using the [employer] System. Bone mineral density as measured about the Lumbar spine is: ----- L1-L4(G/cm2): 1.031 T Score Values are as follows: ----- L1: -0.4 ----- L2: -1.2 ----- L3: -0.7 ----- L4: -2.4 ----- L1-L4: -1.2 Bone mineral density has: DECREASED -8.0 % since study of: 2016 Bone mineral density about the R hip (g/cm2): 0.807 Bone mineral density about the L hip (g/cm2): 0.740 T Score values are as follows: -----R Neck: -1.7 -----L Neck: -2.1 -----R Total: -1.2 -----L Total: -1.0 Bone mineral density has: DECREASED -8.2 % since study of: 2016 FRAX%s: The graph provided illustrates a 17.5 % chance for a major osteoporotic fx and a 3.2 % chance for the hips probability for fx in 10 years time. IMPRESSION: Osteopenia (T Score between -2.5 and -1). There is slightly increased risk of fracture and the patient may be considered for treatment. Re-Screen 2-5 years. NOTE: T-SCORE=SD OF THE YOUNG ADULT MEAN.
== END | disposition home or self-care (01) ==
LOC: RADBDWWP 07:49
PROVIDERS: ATTEND Internal Medicine Hematology & Oncology
DX: M85.89 Other specified disorders of bone density and structure, multiple sites (principal); Z79.890 Hormone replacement therapy
CPT/HCPCS: 77080

== ENCOUNTER → 2021-12-21 | Outpatient (CLI) | payer BC ==
--- NOTE | 2021-12-21 10:07 | MM ---
Reason for Exam: Follow-up at short interval from prior study. Last screening mammogram was performed 12 month(s) ago. Patient History: Menarche at age 16. First Full-Term at age 26. Postmenopausal. Breast cancer, age 65. 05/24/2021, Lumpectomy on the Right side. 1997, Benign Excisional Biopsy on the right side. 05/24/2021, Malignant Core Biopsy on the right side. 03/10/2021, Malignant Core Biopsy on the right side. 03/10/2021, Malignant Core Biopsy on the right side. 12/13/2018, Benign Core Biopsy on the left side. 11/27/2017, Malignant Core Biopsy on the right side. 11/27/2017, Malignant Core Biopsy on the right side. 11/09/2017, High risk Core Biopsy on the right side. 11/23/2015, Malignant Core Biopsy on the left side. 11/01/2015, Malignant Core Biopsy on the left side. 2015, Radiation Therapy on the left side. Paternal grandmother had breast cancer, age 80. Paternal aunt had breast cancer. Prior Study Comparison: 10/09/2016 Bilateral Diagnostic Mammogram, [facility]. 11/21/2018 Bilateral Diagnostic Mammogram, [facility]. 12/20/2020 Bilateral Diagnostic Mammogram, [facility]. Tissue Density: The breast tissue is heterogeneously dense. This may lower the sensitivity of mammography. Findings: Analyzed By CAD. Bilateral breast distortion from prior lumpectomy and radiation therapy. Benign microcalcifications noted bilaterally are stable. No evidence for new mass. Overall Assessment: Benign, BI-RAD 2 Management: Diagnostic Mammogram of both breasts in 1 year. A clinical breast exam by your physician is recommended on an annual basis and results should be correlated with mammographic findings. This exam should not preclude additional follow-up of suspicious palpable abnormalities. Results were given to the patient verbally at the time of exam. Electronically signed and approved by: Dino Winchester M.D. Radiologis
== END | disposition home or self-care (01) ==
LOC: RADMAMWWP 08:54
PROVIDERS: ATTEND Surgery
DX: R92.8 Other abnormal and inconclusive findings on diagnostic imaging of breast (principal); Z85.3 Personal history of malignant neoplasm of breast
CPT/HCPCS: 77062; 77066

== ENCOUNTER 2022-02-10 00:54 | Inpatient (IN) | payer BC ==
--- NOTE | 2022-02-10 00:59 | ED ---
Recheck HPI - General Stated Complaint: Hypertension Time Seen by Provider: 02/10/22 00:58 - Related Data Home Medications Medication Instructions Recorded Confirmed Albuterol Sulfate [Ventolin HFA] 1 - 2 puff INHALATION DIRECTED 11/02/14 10/27/21 PRN Loratadine [Claritin] 10 mg PO DAILY 11/02/14 10/27/21 Omeprazole [PriLOSEC] 20 mg PO HS PRN 11/02/14 10/27/21 Acetaminophen [Tylenol Extra 500 mg PO DAILY PRN 11/27/17 10/27/21 Strength] Albuterol Nebulizer 1 dose INHALATION DIRECTED PRN 12/18/19 10/27/21 Fluticasone Propion/Salmeterol 1 inhalation PO BID 12/18/19 10/27/21 [Wixela 500-50 Inhub] Omalizumab [Xolair] 0 mg SQ QMONTHLY 06/25/20 10/27/21 Allergies Allergy/AdvReac Type Severity Reaction Status Date / Time Beta-Blockers Allergy Dyspnea Verified 02/10/22 01:04 (Beta-Adrenergic Bloc latex Allergy Rash/Hives Verified 02/10/22 01:04 monosodium glutamate Allergy Rapid Verified 02/10/22 01:04 Heart Rate montelukast [From Singulair] Allergy Rash/Hives Verified 02/10/22 01:04 Penicillins Allergy Rash/Hives Verified 02/10/22 01:04 polyethylene glycol 3350 Allergy Rash/Hives Verified 02/10/22 01:04 [From Miralax] prednisone AdvReac Dyspnea Verified 02/10/22 01:04 Review of Systems ROS Statement: Those systems with pertinent positive or pertinent negative responses have been documented in the HPI. ROS Other: All systems not noted in ROS Statement are negative. Past Medical History Past Medical History: Asthma, Cancer, COPD, GERD/Reflux, Hyperlipidemia, Osteoarthritis (OA) Additional Past Medical History / Comment(s): BACK PAIN- SCIATICA., PVC'S ., LT BREAST DUCTAL CARCINOMA INSITU 2016 WITH SURGERY & RADIATION, RIGHT BREAST CANCER 2018 WITH SURGERY., STATES HAVING PAIN LEFT ABD, STATES FAMILY HX OF COLON CANCER . Leaky heart valve History of Any Multi-Drug Resistant Organisms: None Reported Past Surgical History: Breast Surgery, Cholecystectomy, Orthopedic Surgery, Prostate Surgery Additional Past Surgical History / Comment(s): 03/10/21 STEREOTACTIC RIGHT BREAST BX (POSITIVIE). JUNE 2020 BLADDER SUSPENSION @ [facility]. Fatty Tumor EXC RT AXILLA. LT FOOT BUNION. Left breast lumpectomy 2016, RT BREAST NEEDLE BIOSPY, C OLONOSCOPY. RIGHT BREAST LUMPECTOMY (2018). Past Anesthesia/Blood Transfusion Reactions: Previous Problems w/ Anesthesia, Motion Sickness, Postoperative Nausea & Vomiting (PONV) Additional Past Anesthesia/Blood Transfusion Reaction / Comment(s): TOOK DAYS TO GET OVER ANESTHESIA-THOUGHT SHE RECEIVED TOO MUCH. Past Psychological History: Anxiety, Depression Additional Psychological History / Comment(s): HX OF CHILD IN PAST. Smoking Status: Former smoker Past Alcohol Use History: Occasional Additional Past Alcohol Use History / Comment(s): QUIT SMOKING 2009, STARTED SMOKING AGE 19 AND QUIT OFF AND ON. Past Drug Use History: None Reported - Past Family History Mother Family Medical History: Cancer, Hypertension Additional Family Medical History / Comment(s): COLON CA. AND MOTHERS FATHER ALSO HAD COLON CANCER Course Vital Signs 02/10/22 02/10/22 00:56 01:45 Temperature 97.6 F Pulse Rate 120 H 89 Respiratory 18 20 Rate Blood Pressure 147/109 146/92 O2 Sat by Pulse 96 Oximetry Medical Decision Making - Lab Data Result diagrams: 02/10/22 01:28 02/10/22 01:28 Lab Results 02/10/22 02/10/22 02/10/22 Range/Units 01:28 01:28 01:28 WBC 10.4 (3.8-10.6) k/uL RBC 4.68 (3.80-5.40) m/uL Hgb 14.3 (11.4-16.0) gm/dL Hct 44.0 (34.0-46.0) % MCV 94.2 (80.0-100.0) fL MCH 30.6 (25.0-35.0) pg MCHC 32.5 (31.0-37.0) g/dL RDW 12.2 (11.5-15.5) % Plt Count 324 (150-450) k/uL MPV 6.6 Neutrophils % 71 % Lymphocytes % 21 % Monocytes % 4 % Eosinophils % 3 % Basophils % 1 % Neutrophils # 7.4 (1.3-7.7) k/uL Lymphocytes # 2.1 (1.0-4.8) k/uL Monocytes # 0.4 (0-1.0) k/uL Eosinophils # 0.3 (0-0.7) k/uL Basophils # 0.1 (0-0.2) k/uL PT 9.9 (9.0-12.0) sec INR 0.9 (<1.2) APTT 23.4 (22.0-30.0) sec Sodium 125 L (137-145) mmol/L Potassium 3.8 (3.5-5.1) mmol/L Chloride 95 L (98-107) mmol/L Carbon Dioxide 23 (22-30) mmol/L Anion Gap 7 mmol/L BUN 11 (7-17) mg/dL Creatinine 0.52 (0.52-1.04) mg/dL Est GFR (CKD-EPI)AfAm >90 (>60 ml/min/1.73 sqM) Est GFR (CKD-EPI)NonAf >90 (>60 ml/min/1.73 sqM) Glucose 114 H (74-99) mg/dL Plasma Lactic Acid Anshul (0.7-2.0) mmol/L Calcium 8.8 (8.4-10.2) mg/dL Phosphorus 3.4 (2.5-4.5) mg/dL Magnesium 1.7 (1.6-2.3) mg/dL Total Bilirubin 0.6 (0.2-1.3) mg/dL AST 22 (14-36) U/L ALT 18 (4-34) U/L Alkaline Phosphatase 111 (38-126) U/L Troponin I (0.000-0.034) ng/mL NT-Pro-B Natriuret Pep pg/mL Total Protein 7.3 (6.3-8.2) g/dL Albumin 4.1 (3.5-5.0) g/dL TSH 4.240 (0.465-4.680) mIU/L 02/10/22 02/10/22 02/10/22 Range/Units 01:28 01: 01: WBC (3.8-10.6) k/uL RBC (3.80-5.40) m/uL Hgb (11.4-16.0) gm/dL Hct (34.0-46.0) % MCV (80.0-100.0) fL MCH (25.0-35.0) pg MCHC (31.0-37.0) g/dL RDW (11.5-15.5) % Plt Count (150-450) k/uL MPV Neutrophils % % Lymphocytes % % Monocytes % % Eosinophils % % Basophils % % Neutrophils # (1.3-7.7) k/uL Lymphocytes # (1.0-4.8) k/uL Monocytes # (0-1.0) k/uL Eosinophils # (0-0.7) k/uL Basophils # (0-0.2) k/uL PT (9.0-12.0) sec INR (<1.2) APTT (22.0-30.0) sec Sodium (137-145) mmol/L Potassium (3.5-5.1) mmol/L Chloride (98-107) mmol/L Carbon Dioxide (22-30) mmol/L Anion Gap mmol/L BUN (7-17) mg/dL Creatinine (0.52-1.04) mg/dL Est GFR (CKD-EPI)AfAm (>60 ml/min/1.73 sqM) Est GFR (CKD-EPI)NonAf (>60 ml/min/1.73 sqM) Glucose (74-99) mg/dL Plasma Lactic Acid Anshul 0.6 L (0.7-2.0) mmol/L Calcium (8.4-10.2) mg/dL Phosphorus (2.5-4.5) mg/dL Magnesium (1.6-2.3) mg/dL Total Bilirubin (0.2-1.3) mg/dL AST (14-36) U/L ALT (4-34) U/L Alkaline Phosphatase (38-126) U/L Troponin I <0.012 (0.000-0.034) ng/mL NT-Pro-B Natriuret Pep 142 pg/mL Total Protein (6.3-8.2) g/dL Albumin (3.5-5.0) g/dL TSH (0.465-4.680) mIU/L - EKG Data -: EKG Interpreted by Me (EKG sinus rhythm 80 MT 144 QRS 95 QTC 386) Disposition Clinical Impression: PVC (premature ventricular contraction), Chest pain, Palpitations, Tachycardia, Hyponatremia Disposition: ADMITTED IP TO THIS HOSP Condition: Fair Is patient prescribed a controlled substance at d/c from ED?: No Referrals: Robinson Jarrell MD [Primary Care Provider] - 1-2 days
[2022-02-10] MEDS ORDERED: SODIUM CHLORIDE 0.9% 1,000 ML IV STA (01:03)
[2022-02-10 01:36] LABS: Basophils # (A) 0.1 k/uL (0-0.2); Basophils % (A) 1 %; Eosinophils # (A) 0.3 k/uL (0-0.7); Eosinophils % (A) 3 %; HGB 14.3 gm/dL (11.4-16.0); Lymphocytes # (A) 2.1 k/uL (1.0-4.8); Lymphocytes % (A) 21 %; MCH 30.6 pg (25.0-35.0); MCHC 32.5 g/dL (31.0-37.0); MCV 94.2 fL (80.0-100.0); Mean Platelet Volume 6.6; Monocytes # (A) 0.4 k/uL (0-1.0); Monocytes % (A) 4 %; Neutrophils # (A) 7.4 k/uL (1.3-7.7); Neutrophils % (A) 71 %; Platelet Count 324 k/uL (150-450); RBC 4.68 m/uL (3.80-5.40); RDW 12.2 % (11.5-15.5); WBC 10.4 k/uL (3.8-10.6)
[2022-02-10 01:44] LABS: INR 0.9 (<1.2); Partial Thromboplastin Time 23.4 sec (22.0-30.0); Prothrombin Time 9.9 sec (9.0-12.0)
[2022-02-10 01:45] LABS: ALT 18 U/L (4-34); AST 22 U/L (14-36); African American GFR (CKD) >90 (>60 ml/min/1.73 sqM); Albumin 4.1 g/dL (3.5-5.0); Alkaline Phosphatase 111 U/L (38-126); Anion Gap 7 mmol/L; Blood Urea Nitrogen 11 mg/dL (7-17); Calcium 8.8 mg/dL (8.4-10.2); Carbon Dioxide 23 mmol/L (22-30); Chloride 95 mmol/L (98-107); Glucose 114 mg/dL (74-99); Magnesium 1.7 mg/dL (1.6-2.3); Non-African American GFR(CKD) >90 (>60 ml/min/1.73 sqM); Phosphorus 3.4 mg/dL (2.5-4.5); Potassium 3.8 mmol/L (3.5-5.1); Sodium 125 mmol/L (137-145); Total Bilirubin 0.6 mg/dL (0.2-1.3); Total Protein 7.3 g/dL (6.3-8.2)
--- NOTE | 2022-02-10 01:56 | XR ---
EXAMINATION TYPE: XR chest 2V DATE OF EXAM: 02/10/2022 COMPARISON: 11/13/2019 HISTORY: Weakness TECHNIQUE: 2 views FINDINGS: Heart is normal. Lungs are clear of infiltrate. No heart failure. There are no hilar masses . Thoracic spine is intact. IMPRESSION: No active cardiopulmonary disease. Normal heart. No change.
[2022-02-10] MEDS ORDERED: ONDANSETRON 4 MG/2 ML VIAL IVP PRN (02:32)
[2022-02-10] MEDS ORDERED: MORPHINE SULFATE 4 MG/ML SYRINGE IV PRN (02:32)
[2022-02-10] MEDS ORDERED: NALOXONE 0.4 MG/ML 1 ML VIAL IV PRN (02:32)
[2022-02-10] MEDS: SODIUM CHLORIDE 0.9% 1,000 ML IV SCH ×3 (04:09→18:19)
[2022-02-10] MEDS: ACETAMINOPHEN TAB 325 MG TAB PO PRN ×2 (04:17→11:31)
[2022-02-10 06:39] LABS: African American GFR (CKD) >90 (>60 ml/min/1.73 sqM); Anion Gap 2 mmol/L; Blood Urea Nitrogen 9 mg/dL (7-17); Calcium 8.7 mg/dL (8.4-10.2); Carbon Dioxide 31 mmol/L (22-30); Chloride 97 mmol/L (98-107); Glucose 102 mg/dL (74-99); Non-African American GFR(CKD) >90 (>60 ml/min/1.73 sqM); Potassium 4.6 mmol/L (3.5-5.1); Sodium 130 mmol/L (137-145)
--- NOTE | 2022-02-10 10:17 | P.CRDCN ---
History of Present Illness History of present illness: HISTORY OF PRESENTING ILLNESS This is a pleasant 66-year-old female past medical history significant for palpitations, PVCs, former nicotine dependence, COPD, breast cancer with previous surgery and radiation. She has seen Dr. Luz in the past. We have been asked to see in consultation for hyponatremia. Patient presents emergency department with elevated blood pressure, palpitations. Patient states that yesterday she checked her blood pressure noted to be 160/100. She states she be marya to have palpitations, some mild shortness of breath. She denies chest pain. Due to her elevated blood pressure she came to the emergency department for further evaluation. She denies any lightheadedness, dizziness, syncope or near syncope. She denies any speech abnormalities, headache, hearing difficulties. She does endorse that her blood pressure has been fluctuating. About 6 weeks ago she followed up with her PCP and was restarted on losartan 25 mg daily. She endorses she was taken off this medication in the past secondary to hypotension. She denies any other changes in medications. States she has been staying hydrated at home. She does not have a history of CAD, [place], Stroke, Diabetes. She quit smoking about 10 years ago. Occasional alcohol use. On admission patient's blood pressure was elevated 147/109, she is also noted to be hyponatremic with sodium 125. She was given IV fluids with improvement in her blood pressure in her sodium. DIAGNOSTICS * EKG reveals sinus rhythm, heart rate 80, no significant ST or T-wave abnormalities suggestive ischemia. Prior EKG was similar findings * Telemetry tracings indicate sinus mechanism, heart rate 60-80s * Chest xray no acute cardiopulmonary process * Laboratory reviewed, troponin negative, CBC unremarkable, sodium 135, potassiu m 3.8, hemoglobin 11, serum creatinine 0.5, proBNP 142, TSH within normal limits, magnesium 1.7 * Current home cardiac medications include losartan 25 mg daily * Holter monitor in the office in 12/2020 revealed sinus rhythm without significant tachycardia or bradycardia arrhythmias. * Exercise stress test 12/2020 revealed no evidence of stress-induced ischemia * Echocardiogram 12/2020 revealed EF 55%, mild to moderate mitral regurgitation, mild tricuspid regurgitation REVIEW OF SYSTEMS At the time of my exam: CONSTITUTIONAL: Denies fever or chills. CARDIOVASCULAR: Denies chest pain, +shortness of breath, orthopnea, PND. Reports palpitations. RESPIRATORY: Denies cough. GASTROINTESTINAL: Denies abdominal pain, diarrhea, constipation, nausea or vomiting. MUSCULOSKELETAL: Denies myalgias. NEUROLOGIC: Denies numbness, tingling, headacbe or weakness. ENDOCRINE: Denies fatigue, weight change, polydipsia or polyurina. GENITOURINARY: Denies burning, hematuria or urgency with micturation. HEMATOLOGIC: Denies history of anemia or bleeding. PHYSICAL EXAMINATION Blood pressure 129/67, heart rate 79, afebrile, oxygen saturation is 90% room air CONSTITUTIONAL: No apparent distress. HEENT: Head is normocephalic. Pupils are equal, round. Sclerae anicteric. Mucous membranes of the mouth are moist. No JVD. No carotid bruit. CHEST EXAMINATION: Lungs are clear to auscultation. No chest wall tenderness is noted on palpation or with deep breathing. HEART EXAMINATION: Regular rate and rhythm. S1, S2 heard. Systolic murmur at apex ABDOMEN: Soft, nontender. Positive bowel sounds. EXTREMITIES: 2+ peripheral pulses, no lower extremity edema and no calf tenderness. NEUROLOGIC EXAMINATION: Patient is awake, alert and oriented x3. ASSESSMENT Hypertension Palpitations Hyponatremia History of PVCs Former nicotine dependence History COPD History of breast cancer s/p surgery and radiation in 2018 PLAN Obtain 2D echocardiogram and doppler study to assess cardiac structure and function. Assess secondary causes to hypertension, patient endorses fluctuating blood pressures Check UA, aldosterone, cortisol and catecholamines Continue Losartan Continue cardiac telemetry Further recommendations based on clinical course Nurse practitioner note has been reviewed by physician. Signing provider agrees with the documented findings, assessment, and plan of care. Past Medical History Past Medical History: Asthma, Cancer, COPD, GERD/Reflux, Hyperlipidemia, Osteoarthritis (OA) Additional Past Medical History / Comment(s): BACK PAIN- SCIATICA., PVC'S ., LT BREAST DUCTAL CARCINOMA INSITU 2016 WITH SURGERY & RADIATION, RIGHT BREAST CANCER 2018 WITH SURGERY., STATES HAVING PAIN LEFT ABD, STATES FAMILY HX OF COLON CANCER . Leaky heart valve History of Any Multi-Drug Resistant Organisms: None Reported Past Surgical History: Breast Surgery, Cholecystectomy, Orthopedic Surgery, Prostate Surgery Additional Past Surgical History / Comment(s): 03/10/21 STEREOTACTIC RIGHT BREAST BX (POSITIVIE). JUNE 2020 BLADDER SUSPENSION @ [facility]. Fatty Tumor EXC RT AXILLA. LT FOOT BUNION. Left breast lumpectomy 2016, RT BREAST NEEDLE BIOSPY, COLONOSCOPY. RIGHT BREAST LUMPECTOMY (2018). Past Anesthesia/Blood Transfusion Reactions: Previous Problems w/ Anesthesia, Motion Sickness, Postoperative Nausea & Vomiting (PONV) Additional Past Anesthesia/Blood Transfusion Reaction / Comment(s): TOOK DAYS TO GET OVER ANESTHESIA-THOUGHT SHE RECEIVED TOO MUCH. Past Psychological History: Anxiety, Depression Additional Psychological History / Comment(s): HX OF CHILD IN PAST. Smoking Status: Former smoker Past Alcohol Use History: Occasional Additional Past Alcohol Use History / Comment(s): QUIT SMOKING 2009, STARTED SMOKING AGE 19 AND QUIT OFF AND ON. Past Drug Use History: None Reported - Past Family History Mother Family Medical History: Cancer, Hypertension Additional Family Medical History / Comment(s): COLON CA. AND MOTHERS FATHER ALSO HAD COLON CANCER Medications and Allergies Home Medications Medication Instructions Recorded Confirmed Type Fluticasone Propion/Salmeterol 1 puff INHALATION RT-BID 12/18/19 02/10/22 History [Wixela 500-50 Inhub] Losartan [Cozaar] 25 mg PO DAILY 02/10/22 02/10/22 History Allergies Allergy/AdvReac Type Severity Reaction Status Date / Time Beta-Blockers Allergy Dyspnea Verified 02/10/22 08:39 (Beta-Adrenergic Bloc latex Allergy Rash/Hives Verified 02/10/22 08:39 monosodium glutamate Allergy Rapid Verified 02/10/22 08:39 Heart Rate montelukast [From Singulair] Allergy Rash/Hives Verified 02/10/22 08:39 Penicillins Allergy Rash/Hives Verified 02/10/22 08:39 polyethylene glycol 3350 Allergy Rash/Hives Verified 02/10/22 08:39 [From Miralax] prednisone AdvReac Dyspnea Verified 02/10/22 08:39 Physical Exam Vitals: Vital Signs Temp Pulse Pulse Resp BP BP BP 02/10/22 07:36 97.7 F 79 18 129/67 02/10/22 04:13 98.0 F 84 16 128/75 02/10/22 03:04 97.8 F 77 18 136/85 02/10/22 01:45 89 20 146/92 02/10/22 00:56 97.6 F 120 H 18 147/109 Pulse Ox 02/10/22 07:36 99 02/10/22 04:13 97 02/10/22 03:04 96 02/10/22 01:45 02/10/22 00:56 96 Intake and Output 02/09/22 02/10/22 02/10/22 22:59 06:59 14:59 Intake Total 118 Output Total 250 Balance -250 118 Intake: Oral 118 Output: Urine 250 Other: Weight 83.915 kg Results 02/10/22 01:28 02/10/22 06:06 Cardiac Enzymes 02/10/22 02/10/22 Range/Units 01:28 01:28 AST 22 (14-36) U/L Troponin I <0.012 (0.000-0.034) ng/mL Coagulation 02/10/22 Range/Units 01:28 PT 9.9 (9.0-12.0) sec APTT 23.4 (22.0-30.0) sec CBC 02/10/22 Range/Units 01:28 WBC 10.4 (3.8-10.6) k/uL RBC 4.68 (3.80-5.40) m/uL Hgb 14.3 (11.4-16.0) gm/dL Hct 44.0 (34.0-46.0) % Plt Count 324 (150-450) k/uL Comprehensive Metabolic Panel 02/10/22 02/10/22 Range/Units 01:28 06:06 Sodium 125 L 130 L (137-145) mmol/L Potassium 3.8 4.6 (3.5-5.1) mmol/L Chloride 95 L 97 L (98-107) mmol/L Carbon Dioxide 23 31 H (22-30) mmol/L BUN 11 9 (7-17) mg/dL Creatinine 0.52 0.59 (0.52-1.04) mg/dL Glucose 114 H 102 H (74-99) mg/dL Calcium 8.8 8.7 (8.4-10.2) mg/dL AST 22 (14-36) U/L ALT 18 (4-34) U/L Alkaline Phosphatase 111 (38-126) U/L Total Protein 7.3 (6.3-8.2) g/dL Albumin 4.1 (3.5-5.0) g/dL Current Medications Generic Name Dose Route Start Last Admin Trade Name Freq PRN Reason Stop Dose Admin Acetaminophen 650 mg 02/10/22 04:09 02/10/22 04:17 Acetaminophen Tab 325 Mg Tab PO 650 mg Q4HR PRN Administration Fever and/ or Pain Sodium Chloride 1,000 mls @ 130 mls/hr 02/10/22 02:45 02/10/22 04:09 Saline 0.9% IV 130 mls/hr .[id number] MARTA Administration Morphine Sulfate 4 mg 02/10/22 02:32 Morphine Sulfate 4 Mg/Ml Syringe IV Q4HR PRN Severe Pain Naloxone HCl 0.2 mg 02/10/22 02:32 Naloxone 0.4 Mg/Ml 1 Ml Vial IV Q2M PRN Opioid Reversal Ondansetron HCl 4 mg 02/10/22 02:32 Ondansetron 4 Mg/2 Ml Vial IVP Q8HR PRN Nausea And Vomiting Intake and Output 02/09/22 02/10/22 02/10/22 22:59 06:59 14:59 Intake Total 118 Output Total 250 Balance -250 118 Intake: Oral 118 Output: Urine 250 Other: Weight 83.915 kg 02/10/22 01:28 02/10/22 06:06
[2022-02-10 10:59] LABS: Appearance,Urine Clear (Clear); Bilirubin,Urine Negative (Negative); Blood,Urine Negative (Negative); Color,Urine Colorless; Glucose,Urine (UA) Negative (Negative); Ketones,Urine Negative (Negative); Leukocyte Esterase,Urine Moderate (Negative); Nitrite,Urine Negative (Negative); PH, Urine 6.5 (5.0-8.0); Protein,Urine Negative (Negative); RBC,Urine <1 /hpf (0-5); Specific Gravity,Urine 1.002 (1.001-1.035); Squamous Epithelial Cell,Urine <1 /hpf (0-4); Urobilinogen,Urine <2.0 mg/dL (<2.0); WBC,Urine 8 /hpf (0-5)
--- NOTE | 2022-02-10 15:09 | HP ---
HISTORY AND PHYSICAL CHIEF COMPLAINT: Hypertension and palpitations. HISTORY OF PRESENT ILLNESS: This is another admission for this 66-year-old white female. She has a history of labile hypertension. She apparently woke up in the middle of the night with tachycardia and had a blood pressure 164/101 and came to the emergency room. She denies any chest pain, diaphoresis, fever, chills, cough, nausea, vomiting, diarrhea, urinary complaints, etc. In the emergency room she had mild hyponatremia and she had tachycardia with occasional PVCs. She is a very anxious individual. She has had breast cancer. REVIEW OF SYSTEMS: She denies any focal neurologic deficits, headaches, difficulty with the vision or the hearing, chest pain, cough, hemoptysis, syncope, abdominal pain, nausea, vomiting, hematemesis, melena, hematochezia, jaundice, hepatitis, cirrhosis, renal failure, frequency, urgency, dysuria, incontinence, arthralgias, diabetes, etc. Past medical history, family history, personal and social histories reveal that she is ALLERGIC TO PENICILLIN, LEXAPRO, SINGULAIR, BETA BLOCKERS AND PREDNISONE. Current medications include losartan 25 mg once a day, fluticasone nasal spray once a day, Ubrelvy 50 mg once a day as needed, ibuprofen 800 q.i.d. as needed, albuterol MDI q.i.d. p.r.n., and Prilosec. The remainder of her history is unremarkable. She used to smoke but has not for a long time. She drinks rarely. PHYSICAL EXAMINATION: Blood pressure is 164/101 with a pulse of 128 and occasional PVCs. Head, ears, eyes, nose, mouth and throat were normal. Neck veins were not distended. Thyroid was not enlarged. Chest was clear. Cardiac exam demonstrated sinus tachycardia. The abdomen was soft and nontender. Extremities were normal. Neurologically she is intact. She is admitted to the hospital with diagnoses: 1. Hypertension. 2. Sinus tachycardia. 3. PVCs. 4. Anxiety. 5. History of breast carcinoma. PLAN: 1. Bedrest. 2. IV fluids. 3. Telemetry. 4. Cardiology consult. 5. Monitor hypertension. MMODL / IJN: [id number] /
[2022-02-11] MEDS: SODIUM CHLORIDE 0.9% 1,000 ML IV SCH ×2 (03:11→08:44)
[2022-02-11] MEDS: NON FORMULARY DRUG (Fluticasone Propion/Salmeterol [Wixela 500-50 Inhub] 1 EACH Blst.W.Dev INHALATION SCH ×2 (03:11→08:36)
[2022-02-11 08:01] LABS: Basophils # (A) 0.1 k/uL (0-0.2); Basophils % (A) 1 %; Eosinophils # (A) 0.1 k/uL (0-0.7); Eosinophils % (A) 2 %; HCT 41.2 % (34.0-46.0); Lymphocytes # (A) 1.7 k/uL (1.0-4.8); Lymphocytes % (A) 26 %; MCH 30.7 pg (25.0-35.0); MCHC 31.6 g/dL (31.0-37.0); MCV 97.3 fL (80.0-100.0); Mean Platelet Volume 6.7; Monocytes # (A) 0.4 k/uL (0-1.0); Monocytes % (A) 6 %; Neutrophils # (A) 4.1 k/uL (1.3-7.7); Neutrophils % (A) 64 %; Platelet Count 299 k/uL (150-450); RBC 4.24 m/uL (3.80-5.40); RDW 12.5 % (11.5-15.5); WBC 6.4 k/uL (3.8-10.6)
[2022-02-11 08:26] LABS: ALT 15 U/L (4-34); AST 19 U/L (14-36); African American GFR (CKD) >90 (>60 ml/min/1.73 sqM); Albumin 3.6 g/dL (3.5-5.0); Alkaline Phosphatase 86 U/L (38-126); Anion Gap 3 mmol/L; Blood Urea Nitrogen 9 mg/dL (7-17); Calcium 8.7 mg/dL (8.4-10.2); Carbon Dioxide 28 mmol/L (22-30); Chloride 106 mmol/L (98-107); Glucose 90 mg/dL (74-99); Lipase 83 U/L (23-300); Magnesium 1.9 mg/dL (1.6-2.3); Non-African American GFR(CKD) >90 (>60 ml/min/1.73 sqM); Phosphorus 3.6 mg/dL (2.5-4.5); Potassium 4.8 mmol/L (3.5-5.1); Sodium 137 mmol/L (137-145); Total Bilirubin 0.4 mg/dL (0.2-1.3); Total Protein 6.3 g/dL (6.3-8.2)
[2022-02-11 08:49] VITALS: BP 139/77; PULSE 87; RESP 16; TEMP 98.3
[2022-02-11] MEDS ORDERED: LOSARTAN 25 MG TAB PO SCH (09:00)
[2022-02-12] MEDS ORDERED: amLODIPine 2.5 MG TAB PO SCH (09:00)
== END 2022-02-11 11:22 | disposition home or self-care (01) | DRG 641 ==
LOC: EC 00:54 → 3SCARD 02:32
PROVIDERS: ADMIT Family Medicine; ATTEND Family Medicine
DX: E87.1 Hypo-osmolality and hyponatremia (principal); I10 Essential (primary) hypertension; J44.9 Chronic obstructive pulmonary disease, unspecified; R00.2 Palpitations; I49.3 Ventricular premature depolarization; R00.0 Tachycardia, unspecified; I08.1 Rheumatic disorders of both mitral and tricuspid valves; M19.90 Unspecified osteoarthritis, unspecified site; F41.9 Anxiety disorder, unspecified; E78.5 Hyperlipidemia, unspecified; Z87.891 Personal history of nicotine dependence; Z92.3 Personal history of irradiation; Z85.3 Personal history of malignant neoplasm of breast; Z80.0 Family history of malignant neoplasm of digestive organs; Z79.899 Other long term (current) drug therapy; Z82.49 Family history of ischemic heart disease and other diseases of the circulatory system; Z90.49 Acquired absence of other specified parts of digestive tract; Z88.8 Allergy status to other drugs, medicaments and biological substances; Z91.040 Latex allergy status; Z88.0 Allergy status to penicillin
CPT/HCPCS: 36415; 71046; 80048; 80053; 81001; 82088; 82384; 82533; 83605; 83690; 83735; 83880; 84100; 84443; 84484; 85025; 85610; 85730; 93005; 99285

== ENCOUNTER 2023-01-21 17:16 | Emergency (ER) | payer BC, MEDICARE ==
[2023-01-21 17:49] VITALS: RESP 18
[2023-01-21] MEDS ORDERED: diphenhydrAMINE 50 MG/ML 1 ML VIAL IVP STA (19:05)
[2023-01-21] MEDS ORDERED: SODIUM CHLORIDE 0.9% 1,000 ML IV ONE (19:06)
[2023-01-21] MEDS ORDERED: KETOROLAC 15 MG/ML 1 ML VIAL IVP STA (19:06)
[2023-01-21] MEDS ORDERED: PROCHLORPERAZINE INJ 10 MG/2 ML VIAL IVP STA (19:06)
--- NOTE | 2023-01-21 20:29 | ED ---
General Adult HPI - General Chief complaint: Headache Stated complaint: Migraine Time Seen by Provider: 01/21/23 18:56 Source: patient, RN notes reviewed Mode of arrival: ambulatory Limitations: no limitations - History of Present Illness Initial comments: 67-year-old female with no significant past medical history presents the emergency department with a chief complaint of headache. Patient reports worsening headache today. She initially reports tenderness 10 headache prior to arrival however when she arrived and provided history the time of evaluation patient reports pain is 4 out of 10. She does not describe that this is different than her normal migraines. She is taking Tylenol Motrin without symptomatic relief. She is complaining of accompanying symptoms of nausea and photophobia. Denies injury or trauma - Related Data Home Medications Medication Instructions Recorded Confirmed Fluticasone Propion/Salmeterol 1 puff INHALATION RT-BID 12/18/19 02/10/22 [Wixela 500-50 Inhub] Previous Rx's Medication Instructions Recorded Losartan [Cozaar] 50 mg PO DAILY #90 tab 02/11/22 amLODIPine [Norvasc] 2.5 mg PO DAILY #14 tab 02/11/22 Allergies Allergy/AdvReac Type Severity Reaction Status Date / Time Beta-Blockers Allergy Dyspnea Verified 01/21/23 17:50 (Beta-Adrenergic Bloc latex Allergy Rash/Hives Verified 01/21/23 17:50 monosodium glutamate Allergy Rapid Verified 01/21/23 17:50 Heart Rate montelukast [From Singulair] Allergy Rash/Hives Verified 01/21/23 17:50 Penicillins Allergy Rash/Hives Verified 01/21/23 17:50 polyethylene glycol 3350 Allergy Rash/Hives Verified 01/21/23 17:50 [From Miralax] prednisone AdvReac Dyspnea Verified 01/21/23 17:50 Review of Systems ROS Statement: Those systems with pertinent positive or pertinent negative responses have been documented in the HPI. ROS Other: All systems not noted in ROS Statement are negative. Past Medical History Past Medical History: Asthma, Cancer, COPD, GERD/Reflux, Hyperlipidemia, Osteoarthritis (OA) Additional Past Medical History / Comment(s): BACK PAIN- SCIATICA., PVC'S ., LT BREAST DUCTAL CARCINOMA INSITU 2016 WITH SURGERY & RADIATION, RIGHT BREAST CANCER 2018 WITH SURGERY., STATES HAVING PAIN LEFT ABD, STATES FAMILY HX OF COLON CANCER . Leaky heart valve History of Any Multi-Drug Resistant Organisms: None Reported Past Surgical History: Breast Surgery, Cholecystectomy, Orthopedic Surgery, Prostate Surgery Additional Past Surgical History / Comment(s): 03/10/21 STEREOTACTIC RIGHT BREAST BX (POSITIVIE). JUNE 2020 BLADDER SUSPENSION @ [facility]. Fatty Tumor EXC RT AXILLA. LT FOOT BUNION. Left breast lumpectomy 2016, RT BREAST NEEDLE BIOSPY, COLONOSCOPY. RIGHT BREAST LUMPECTOMY (2018). Past Anesthesia/Blood Transfusion Reactions: Previous Problems w/ Anesthesia, Motion Sickness, Postoperative Nausea & Vomiting (PONV) Additional Past Anesthesia/Blood Transfusion Reaction / Comment(s): TOOK DAYS TO GET OVER ANESTHESIA-THOUGHT SHE RECEIVED TOO MUCH. Past Psychological History: Anxiety, Depression Smoking Status: Former smoker Past Alcohol Use History: Occasional Past Drug Use History: None Reported - Past Family History Mother Family Medical History: Cancer, Hypertension Additional Family Medical History / Comment(s): COLON CA. AND MOTHERS FATHER ALSO HAD COLON CANCER General Exam - General Exam Comments Initial Comments: General: Alert, in no acute distress Head: atraumatic normocephalic. Eyes PERRL, EOMI intact, mucous membranes moist Respiratory: Lungs clear to auscultation bilaterally Cardiovascular: Heart rate regular rate and rhythm Abdominal: Soft without guarding or rebound Extremities: Normal inspection with full range of motion and normal capillary refill Neuroogic: alert and oriented 3, CN II-XII intact, able to ambulate with steady gait Skin: warm dry and intact with normal color Limitations: no limitations Course Vital Signs 01/21/23 01/21/23 01/21/23 17:45 20:33 22:48 Temperature 98.4 F 98.7 F Pulse Rate 83 94 68 Respiratory 18 18 18 Rate Blood Pressure 156/81 162/88 170/47 O2 Sat by Pulse 99 98 97 Oximetry 01/21/23 23:03 Temperature 98.6 F Pulse Rate Respiratory Rate Blood Pressure O2 Sat by Pulse Oximetry Medical Decision Making - Medical Decision Making Was pt. sent in by a medical professional or institution (, PA, [employer], urgent care, hospital, or assisted...) When possible be specific @ -[No] Did you speak to anyone other than the patient for history (EMS, parent, family, police, friend...)? What history was obtained from this source @ -[No] Did you review nursing and triage notes (agree or disagree)? Why? @ -[I reviewed and agree with nursing and triage notes] Were old charts reviewed (outside hosp., previous admission, EMS record, old EKG, old radiological studies, urgent care reports/EKG's, assisted records)? Report findings @ -[No old charts were reviewed] Differential Diagnosis (chest pain, altered mental status, abdominal pain women, abdominal pain men, vaginal bleeding, weakness, fever, dyspnea, syncope, headache, dizziness, GI bleed, back pain, seizure, CVA, palpatations, mental health, musculoskeletal)? @ -[not applicable] EKG interpreted by me (3pts min.). @ -[As above] X-rays interpreted by me (1pt min.). @ -[None done] CT interpreted by me (1pt min.). @ -[None done] U/S interpreted by me (1pt. min.). @ -[None done] What testing was considered but not performed or refused? (CT, X-rays, U/S, labs)? Why? @ -[None] What meds were considered but not given or refused? Why? @ -[None] Did you discuss the management of the patient with other professionals (ruperto islas i.e. , PA, [employer], lab, RT, psych nurse, social media editor, rod mill tender, teacher, preventive medicine officer, family caseworker)? Give summary @ -[No] Was smoking cessation discussed for >3mins.? @ -[No] Was critical care preformed (if so, how long)? @ -[No] Were there social determinants of health that impacted care today? How? (Homelessness, low income, unemployed, alcoholism, drug addiction, transpor tation, low edu. Level, literacy, decrease access to med. care, mcc, rehab)? @ -[No] Was there de-escalation of care discussed even if they declined (Discuss DNR or withdrawal of care, Hospice)? DNR status @ -[No] What co-morbidities impacted this encounter? (DM, HTN, Smoking, COPD, CAD, Cancer, CVA, ARF, Chemo, Hep., AIDS, mental health diagnosis, sleep apnea, morbid obesity)? @ -[None] Was patient admitted / discharged? Hospital course, mention meds given and route, prescriptions, significant lab abnormalities, going to OR and other pertinent info. @ -Discharged. This is a pleasant 67-year-old female who presents to the emergency department with headache. Patient had thorough history and physical exam performed on the ED. Physical exam is essentially unremarkable. Patient able to move all extremities freely. Focal neuro deficits.. Patient offered imaging however she declined. Labs unremarkable. Patient is hypertensive upon discharge and was requesting to be discharged and reports resolution of symptoms. I discussed the results in detail with the patient verbalized understanding and all questions were addressed. Return precautions were discussed at length. Patient was discharged home in stable condition. With recommend close follow-up in 1-2 days with PCP. I discussed the case with Dr. Tyler [facility] who agrees with plan of care Undiagnosed new problem with uncertain prognosis? @ -[No] Drug Therapy requiring intensive monitoring for toxicity (Heparin, Nitro, Insul in, Cardizem)? @ -[No] Were any procedures done? @ -[No] Diagnosis/symptom? @ -Headache Acute, or Chronic, or Acute on Chronic? @ -Acute Uncomplicated (without systemic symptoms) or Complicated (systemic symptoms)? @ -Uncomplicated Side effects of treatment? @ -[No] Exacerbation, Progression, or Severe Exacerbation? @ -[No] Poses a threat to life or bodily function? How? (Chest pain, [place], [place], pneumonia, PE, COPD, DKA, ARF, appy, cholecystitis, CVA, Diverticulitis, Homicidal, Suicidal, threat to staff... and all critical care pts) @ -Low likelihood - Lab Data Result diagrams: 01/21/23 20:27 01/21/23 20:27 Lab Results 01/21/23 01/21/23 Range/Units 20:27 20:27 WBC 8.8 (3.8-10.6) k/uL RBC 4.65 (3.80-5.40) m/uL Hgb 14.5 (11.4-16.0) gm/dL Hct 44.5 (34.0-46.0) % MCV 95.6 (80.0-100.0) fL MCH 31.2 (25.0-35.0) pg MCHC 32.7 (31.0-37.0) g/dL RDW 12.3 (11.5-15.5) % Plt Count 386 (150-450) k/uL MPV 6.7 Neutrophils % 74 % Lymphocytes % 19 % Monocytes % 4 % Eosinophils % 2 % Basophils % 1 % Neutrophils # 6.5 (1.3-7.7) k/uL Lymphocytes # 1.6 (1.0-4.8) k/uL Monocytes # 0.4 (0-1.0) k/uL Eosinophils # 0.2 (0-0.7) k/uL Basophils # 0.0 (0-0.2) k/uL Sodium 128 L (137-145) mmol/L Potassium 4.6 (3.5-5.1) mmol/L Chloride 95 L (98-107) mmol/L Carbon Dioxide 24 (22-30) mmol/L Anion Gap 9 mmol/L BUN 11 (7-17) mg/dL Creatinine 0.61 (0.52-1.04) mg/dL Est GFR (CKD-EPI)AfAm >90 (>60 ml/min/1.73 sqM) Est GFR (CKD-EPI)NonAf >90 (>60 ml/min/1.73 sqM) Glucose 97 (74-99) mg/dL Calcium 9.6 (8.4-10.2) mg/dL Total Bilirubin 0.6 (0.2-1.3) mg/dL AST 28 (14-36) U/L ALT 30 (4-34) U/L Alkaline Phosphatase 91 (38-126) U/L Total Protein 8.1 (6.3-8.2) g/dL Albumin 4.5 (3.5-5.0) g/dL Disposition Clinical Impression: Headache Disposition: HOME SELF-CARE Condition: Stable Instructions (If sedation given, give patient instructions): Acute Headache (ED) Additional Instructions: Please return to the nearest emergency department as well as or persist Is patient prescribed a controlled substance at d/c from ED?: No Referrals: Robinson Jarrell MD [Primary Care Provider] - 1-2 days Time of Disposition: 22:40
[2023-01-21 20:59] LABS: Basophils % (A) 1 %; Eosinophils # (A) 0.2 k/uL (0-0.7); Eosinophils % (A) 2 %; HCT 44.5 % (34.0-46.0); HGB 14.5 gm/dL (11.4-16.0); Lymphocytes # (A) 1.6 k/uL (1.0-4.8); Lymphocytes % (A) 19 %; MCH 31.2 pg (25.0-35.0); MCHC 32.7 g/dL (31.0-37.0); MCV 95.6 fL (80.0-100.0); Mean Platelet Volume 6.7; Monocytes # (A) 0.4 k/uL (0-1.0); Monocytes % (A) 4 %; Neutrophils # (A) 6.5 k/uL (1.3-7.7); Neutrophils % (A) 74 %; Platelet Count 386 k/uL (150-450); RBC 4.65 m/uL (3.80-5.40); RDW 12.3 % (11.5-15.5); WBC 8.8 k/uL (3.8-10.6)
[2023-01-21 21:47] LABS: ALT 30 U/L (4-34); AST 28 U/L (14-36); African American GFR (CKD) >90 (>60 ml/min/1.73 sqM); Albumin 4.5 g/dL (3.5-5.0); Alkaline Phosphatase 91 U/L (38-126); Anion Gap 9 mmol/L; Blood Urea Nitrogen 11 mg/dL (7-17); Calcium 9.6 mg/dL (8.4-10.2); Carbon Dioxide 24 mmol/L (22-30); Chloride 95 mmol/L (98-107); Glucose 97 mg/dL (74-99); Non-African American GFR(CKD) >90 (>60 ml/min/1.73 sqM); Potassium 4.6 mmol/L (3.5-5.1); Sodium 128 mmol/L (137-145); Total Bilirubin 0.6 mg/dL (0.2-1.3); Total Protein 8.1 g/dL (6.3-8.2)
[2023-01-21 22:49] VITALS: BP 170/47; PULSE 68
[2023-01-21 23:05] VITALS: TEMP 98.6
== END 2023-01-21 23:05 | disposition home or self-care (01) ==
LOC: EC 17:16
DX: R51.9 Headache, unspecified (principal); J44.9 Chronic obstructive pulmonary disease, unspecified; Z79.51 Long term (current) use of inhaled steroids; Z88.0 Allergy status to penicillin; Z88.8 Allergy status to other drugs, medicaments and biological substances; Z91.040 Latex allergy status; Z87.891 Personal history of nicotine dependence
CPT/HCPCS: 36415; 80053; 85025; 99284; 96374; 96375 ×2; 96361 ×2; J1200; J0780; J1885

== ENCOUNTER → 2023-01-24 | Outpatient (CLI) | payer BC, MEDICARE ==
--- NOTE | 2023-01-24 10:14 | MM ---
Reason for Exam: Hx of breast cancer, conservation therapy. Last mammogram was performed 1 year(s) and 1 month(s) ago. Patient History: Menarche at age 16. First Full-Term at age 26. Postmenopausal. Breast cancer, right, age 65. Breast cancer, left, age 60. 05/24/2021, Lumpectomy on the Right side. 1997, Benign Excisional Biopsy on the right side. 05/24/2021, Malignant Core Biopsy on the right side. 03/10/2021, Malignant Core Biopsy on the right side. 03/10/2021, Malignant Core Biopsy on the right side. 12/13/2018, Benign Core Biopsy on the left side. 11/27/2017, Malignant Core Biopsy on the right side. 11/27/2017, Malignant Core Biopsy on the right side. 11/09/2017, High risk Core Biopsy on the right side. 11/23/2015, Malignant Core Biopsy on the left side. 11/01/2015, Malignant Core Biopsy on the left side. 2015, Radiation Therapy on the left side. Paternal grandmother had breast cancer, age 80. Paternal aunt had breast cancer. Prior Study Comparison: 05/28/2014 Bilateral Diagnostic Mammogram, [facility]. 10/07/2015 Bilateral Screening Mammogram, [facility]. 10/13/2015 Left Diagnostic Mammogram, [facility]. 08/01/2016 Left Diagnostic Mammogram, [facility]. 10/09/2016 Bilateral Diagnostic Mammogram, [facility]. 10/18/2017 Bilateral Diagnostic Mammogram, [facility]. 01/29/2018 Bilateral Diagnostic Breast MRI, [facility]. 05/22/2018 Right Diagnostic Mammogram, [facility]. 11/21/2018 Bilateral Diagnostic Mammogram, [facility]. 06/16/2019 Left Diagnostic Mammogram, [facility]. 12/16/2019 Bilateral Diagnostic Mammogram, [facility]. 12/20/2020 Bilateral Diagnostic Mammogram, [facility]. 12/21/2021 Bilateral MG 3D diag mammo w/cad EDDIE, [facility]. Tissue Density: The breast tissue is heterogeneously dense. This may lower the sensitivity of mammography. Findings: Analyzed By CAD. Bilateral surgical clips. Calcified lesions in the surgical bed of the right breast. No new suspicious masses, calcifications or distortions. Overall Assessment: Benign, BI-RAD 2 Management: Diagnostic Mammogram of both breasts in 1 year. Results were given to the patient verbally at the time of exam. Patient should continue monthly self-breast exams. A clinical breast exam by your physician is recommended on an annual basis. This exam should not preclude additional follow-up of suspicious palpable abnormalities. Note on Radha scores and lifetime risk: 1. A Radha score greater than 3% is considered moderate risk. If this is the case, consider specialist referral to assess eligibility for a risk reducing agent. 2. If overall lifetime risk for the development of breast cancer is 20% or higher, the patient may qualify for future screening with alternating mammogram and breast MRI. Electronically signed and approved by: Mansoor Schultz DO
== END | disposition home or self-care (01) ==
LOC: RADMAMWWP 09:31
PROVIDERS: ATTEND Family Medicine
DX: R92.8 Other abnormal and inconclusive findings on diagnostic imaging of breast (principal); Z78.0 Asymptomatic menopausal state; Z85.3 Personal history of malignant neoplasm of breast; Z80.3 Family history of malignant neoplasm of breast
CPT/HCPCS: 77066; G0279; 77062

== ENCOUNTER → 2023-02-05 | Outpatient (CLI) | payer MEDICARE ==
--- NOTE | 2023-02-14 16:10 | HM ---
HOLTER MONITOR REPORT FINDINGS: The patient was monitored for 72 hours. The baseline rhythm is a sinus mechanism with normal conduction. The average rate 74 beats per minute, minimum 50, maximum 124 beats per minute. Ventricular ectopic activity was present in the form of rare single PVCs. Supraventricular ectopic activity was present in the form of rare single PACs. No significant pauses were noted. The short bursts of supraventricular tachycardia were noted, the longest being 14 complexes. Symptoms of cramping, visual migraine, and headache did not correlate with any dysrhythmia. CONCLUSION: 1. Sinus mechanism baseline rhythm. 2. Rare ventricular ectopic activity. 3. Rare supraventricular ectopic activity with short bursts of supraventricular tachycardia. 4. Symptoms did not correlate with any dysrhythmia. MMODL / IJN: [id number] /
== END | disposition home or self-care (01) ==
LOC: RADECHMAIN 07:51
PROVIDERS: ATTEND Family Medicine
DX: I49.3 Ventricular premature depolarization (principal); R00.0 Tachycardia, unspecified
CPT/HCPCS: 93225; 93226

== ENCOUNTER → 2024-01-28 | Outpatient (CLI) | payer MEDICARE ==
--- NOTE | 2024-01-28 11:11 | MM ---
Reason for Exam: Hx of breast cancer, conservation therapy. Last screening mammogram was performed 12 month(s) ago. Patient History: Menarche at age 16. First Full-Term at age 26. Postmenopausal. Breast cancer, right, age 65. Breast cancer, left, age 60. 05/24/2021, Lumpectomy on the Right side. 1997, Benign Excisional Biopsy on the right side. 05/24/2021, Malignant Core Biopsy on the right side. 03/10/2021, Malignant Core Biopsy on the right side. 03/10/2021, Malignant Core Biopsy on the right side. 12/13/2018, Benign Core Biopsy on the left side. 11/27/2017, Malignant Core Biopsy on the right side. 11/27/2017, Malignant Core Biopsy on the right side. 11/09/2017, High risk Core Biopsy on the right side. 11/23/2015, Malignant Core Biopsy on the left side. 11/01/2015, Malignant Core Biopsy on the left side. 2015, Radiation Therapy on the left side. Paternal grandmother had breast cancer, age 80. Paternal aunt had breast cancer. Prior Study Comparison: 09/10/1996 Screening Mammogram, Unknown. 10/18/2017 Bilateral Diagnostic Mammogram, [facility]. 01/29/2018 Bilateral Diagnostic Breast MRI, [facility]. 05/22/2018 Right Diagnostic Mammogram, [facility]. 11/21/2018 Bilateral Diagnostic Mammogram, [facility]. 06/16/2019 Left Diagnostic Mammogram, [facility]. 12/16/2019 Bilateral Diagnostic Mammogram, [facility]. 12/20/2020 Bilateral Diagnostic Mammogram, [facility]. 12/21/2021 Bilateral MG 3D diag mammo w/cad EDDIE, [facility]. 01/24/2023 Bilateral MG 3D diag mammo w/cad EDDIE, [facility]. Tissue Density: The breasts are heterogeneously dense, which may obscure small masses. Findings: Analyzed By CAD. The pattern is stable. Lumpectomy changes are present within the bilateral breasts. Multiple surgical clips are present. Right axillary surgical clips are present. No significant interval changes are No suspicious groups of microcalcifications, spiculated or lobular masses, architectural distortion or other secondary signs of malignancy are mammographically apparent. Overall Assessment: Benign, BI-RAD 2 Management: Diagnostic Mammogram of both breasts in 1 year. A negative mammogram report should not preclude additional follow up of suspicious palpable abnormalities. Patient should continue monthly self breast exam. A clinical breast exam by your physician is recommended on an annual basis and results should be correlated with mammographic findings. Note on Radha scores and lifetime risk: 1. A Radha score greater than 3% is considered moderate risk. If this is the case, consider specialist referral to assess eligibility for a risk reducing agent. 2. If overall lifetime risk for the development of breast cancer is 20% or higher, the patient may qualify for future screening with alternating mammogram and breast MRI. Electronically signed and approved by: Anthony Landon D.O. Radiologis
== END | disposition home or self-care (01) ==
LOC: RADMAMWWP 10:39
PROVIDERS: ATTEND Family Medicine
DX: R92.333 Mammographic heterogeneous density, bilateral breasts (principal); R92.8 Other abnormal and inconclusive findings on diagnostic imaging of breast; Z85.3 Personal history of malignant neoplasm of breast; Z78.0 Asymptomatic menopausal state; Z80.3 Family history of malignant neoplasm of breast
CPT/HCPCS: 77066; G0279; 77062

== ENCOUNTER → 2024-09-15 | Outpatient (CLI) | payer MEDICARE ==
--- NOTE | 2024-10-23 10:06 | EM ---
Event monitor shows sinus rhythm heart rates ranged from 50-142 beats minute average 75 beats minute 1 brief run of nonsustained supraventricular tachycardia for 7 beats only No sustained tacky or bradycardia arrhythmias MTDD
== END | disposition home or self-care (01) ==
LOC: RADECHMAIN 08:19
PROVIDERS: ATTEND Family Medicine
DX: I47.10 Supraventricular tachycardia, unspecified (principal); R00.2 Palpitations
CPT/HCPCS: 93270

== ENCOUNTER → 2025-01-09 | Outpatient (CLI) | payer MEDICARE ==
--- NOTE | 2025-01-12 08:14 | CTL ---
EXAMINATION TYPE: CT Low Dose Lung DATE OF EXAM: 01/09/2025 10:05 AM COMPARISON: 04/11/2023 SCREENING VISIT: Subsequent CT DIAGNOSTIC QUALITY: Limited, but interpretable CLINICAL INDICATION: Female, 69 years old with history of Z87.891 HX tobacco use, pt smoked 2 packs a day for 20 yrs. No longer smoking, Lung cancer screening, History of tobacco use. TECHNIQUE: Low dose computed tomography scan was performed through the chest at 1 mm thick sections a nd reconstructed images in the coronal plane at 1 mm thick sections. Contrast used: mL of , (none if empty) Oral contrast used: (none if empty) CT DLP: 81.68 mGycm, Automated exposure control for dose reduction was used. CT CTDI: 2.18 mGy, Automated exposure control for dose reduction was used. FINDINGS: LUNG NODULES: None. LUNGS: COPD: Severity: None Fibrosis: Severity: None Lymph nodes: None Other findings: None RIGHT PLEURAL SPACE: Effusion: None Calcification: None Thickening: None Pneumothorax: None LEFT PLEURAL SPACE: Effusion: None Calcification: None Thickening: None Pneumothorax: None HEART: Other: Ascending thoracic aorta at the level the main pulmonary artery measures 3.1 cm. The main pul monary artery at the bifurcation measures 2.4 cm. Heart Size: Normal Coronary calcification: Moderate coronary artery calcifications present. Pericardial effusion: None OTHER FINDINGS: Upper abdomen: Normal Bony thorax: Normal Supraclavicular region: Normal IMPRESSION: No suspicious changes for primary or metastatic neoplasm FOLLOW UP CT CHEST RECOMMENDATION: Follow-up portable CT chest one year CT LUNG RAD: Lung-Rad 2 Benign Appearance or Behavior [facility], Workstation: [id number], 01/12/2025 8:12 AM
== END | disposition home or self-care (01) ==
LOC: RADCTMAIN 09:31
PROVIDERS: ATTEND Family Medicine
DX: Z12.2 Encounter for screening for malignant neoplasm of respiratory organs (principal); I25.10 Atherosclerotic heart disease of native coronary artery without angina pectoris; Z87.891 Personal history of nicotine dependence
CPT/HCPCS: 71271

== ENCOUNTER → 2025-01-28 | Outpatient (CLI) | payer MEDICARE ==
--- NOTE | 2025-01-28 11:14 | MM ---
Reason for Exam: Follow-up at short interval from prior study. Last screening mammogram was performed 12 month(s) ago. Patient History: Menarche at age 16. First Full-Term at age 26. Postmenopausal. Breast cancer, right, age 65. Breast cancer, left, age 60. Previous chest radiation therapy at age 60. 05/24/2021, Lumpectomy on the Right side. 1997, Benign Excisional Biopsy on the right side. 05/24/2021, Malignant Core Biopsy on the right side. 03/10/2021, Malignant Core Biopsy on the right side. 03/10/2021, Malignant Core Biopsy on the right side. 12/13/2018, Benign Core Biopsy on the left side. 11/27/2017, Malignant Core Biopsy on the right side. 11/27/2017, Malignant Core Biopsy on the right side. 11/09/2017, High risk Core Biopsy on the right side. 11/23/2015, Malignant Core Biopsy on the left side. 11/01/2015, Malignant Core Biopsy on the left side. 2015, Radiation Therapy on the left side. Paternal grandmother had breast cancer, age 80. Paternal aunt had breast cancer. Prior Study Comparison: 12/16/2019 Bilateral Diagnostic Mammogram, [facility]. 12/20/2020 Bilateral Diagnostic Mammogram, [facility]. 12/21/2021 Bilateral MG 3D diag mammo w/cad EDDIE, [facility]. 01/24/2023 Bilateral MG 3D diag mammo w/cad EDDIE, [facility]. 01/28/2024 Bilateral MG 3D diag mammo w/cad EDDIE, [facility]. Tissue Density: The breasts are heterogeneously dense, which may obscure small masses. Findings: Analyzed By CAD. Stable postbiopsy changes bilaterally. No evidence for new mass. No suspicious microcalcifications. Overall Assessment: Benign, BI-RAD 2 Management: Diagnostic Mammogram of both breasts in 1 year. . Results were given to the patient verbally at the time of exam. Patient should continue monthly self-breast exams. A clinical breast exam by your physician is recommended on an annual basis. This exam should not preclude additional follow-up of suspicious palpable abnormalities. Note on Radha scores and lifetime risk: 1. A Radha score greater than 3% is considered moderate risk. If this is the case, consider specialist referral to assess eligibility for a risk reducing agent. 2. If overall lifetime risk for the development of breast cancer is 20% or higher, the patient may qualify for future screening with alternating mammogram and breast MRI. [facility], , 01/28/2025 11:10 AM. Electronically signed and approved by: Dino Winchester M.D. Radiologis
== END | disposition home or self-care (01) ==
LOC: RADMAMWWP 10:18
PROVIDERS: ATTEND Family Medicine
DX: R92.8 Other abnormal and inconclusive findings on diagnostic imaging of breast (principal); R92.333 Mammographic heterogeneous density, bilateral breasts; Z80.3 Family history of malignant neoplasm of breast; Z85.3 Personal history of malignant neoplasm of breast
CPT/HCPCS: 77062; 77066

== ENCOUNTER → 2025-02-11 | Outpatient (CLI) | payer MEDICARE ==
--- NOTE | 2025-02-11 12:45 | CT ---
EXAMINATION TYPE: CT brain wo con DATE OF EXAM: 02/11/2025 COMPARISON: none CLINICAL INDICATION: Female, 69 years old with history of R42 Dizziness; PHH, head and neck pain, diz ziness TECHNIQUE: CT scan of the head is performed without contrast. CT DLP: [address] CTDI: mGy Automated exposure control for dose reduction was used. FINDINGS: There is no acute intracranial hemorrhage or midline shift identified. There is diffuse v entricular and sulcal prominence consistent with diffuse age-related cerebral atrophy. There is low- attenuation in the periventricular white matter consistent with chronic small vessel ischemic change. The globes are intact and the visualized sinuses are clear. IMPRESSION: No acute intracranial hemorrhage or midline shift. There is diffuse age-related cerebra l atrophy and chronic small vessel ischemic change noted. [facility], , 02/11/2025 12:42 PM
== END | disposition home or self-care (01) ==
LOC: RADCTMAIN 12:15
PROVIDERS: ATTEND Family Medicine
DX: R42 Dizziness and giddiness (principal); G31.1 Senile degeneration of brain, not elsewhere classified; I67.82 Cerebral ischemia
CPT/HCPCS: 70450